=== PATIENT | female | born 1940 | race Caucasian/White ===

== ENCOUNTER 2017-07-19 14:12 | Emergency (ER) | payer MEDICARE, OTHER ==
[~2017-07-19] VITALS: Ht 160 cm; Wt 62.1 kg
[2017-07-19] MEDS ORDERED: METOPROLOL SUCC25 MG PO (14:29)
[2017-07-19] MEDS ORDERED: LEVOTHYROXINE112 MCG PO (14:29)
[2017-07-19] MEDS ORDERED: LISINOPRIL40 MG PO (14:31)
[2017-07-19] MEDS ORDERED: AMLODIPINE BESYL5 MG PO (14:31)
[2017-07-19] MEDS ORDERED: MEMANTINE HCL10 MG PO (14:31)
[2017-07-19] MEDS ORDERED: OMEGA-3 2100 S1 EACH PO (14:32)
[2017-07-19] MEDS ORDERED: COQ-10100 MG PO (14:32)
[2017-07-19] MEDS ORDERED: D3 DOTS2000 UNIT PO (14:33)
--- NOTE | 2017-07-20 12:35 | EKG ---
[facility] [address] [place], [place] [address] \T\ T wave abnormality, consider anterior ischemia Abnormal ECG No previous ECGs available Confirmed by TOLU VENTURA MD ([id number]) on 07/20/2017 12:35:43 PM Electronically Signed By: TOLU VENTURA MD 07/20/17 1235 PATIENT NAME: MIKHAIL PHAM Electrocardiogram DATE OF : 42 PHYSICIAN: TOLU VENTURA MD REPORT #: [id number] REPORT IS CONFIDENTIAL AND NOT TO BE RELEASED WITHOUT AUTHORIZATION
== END 2017-07-19 17:49 | disposition home or self-care (01) ==
LOC: ED 14:12
DX: I95.1 Orthostatic hypotension (principal); E87.6 Hypokalemia; E03.9 Hypothyroidism, unspecified; Z87.891 Personal history of nicotine dependence; Z88.0 Allergy status to penicillin; Z91.018 Allergy to other foods; Z79.899 Other long term (current) drug therapy
CPT/HCPCS: 51701; 80053; 81001; 84484; 85025; 93005; 93010; 96360; 99284; J7030

== ENCOUNTER 2022-05-05 13:40 | Inpatient (IN) | payer MEDICARE, OTHER ==
[~2022-05-05] VITALS: Ht 160 cm; Wt 66.6 kg
[~2022-05-05 13:40] MED LIST: AMLODIPINE BESYL5 MG PO; COQ-10100 MG PO; D3 DOTS50 MCG PO; LEVOTHYROXINE112 MCG PO; LISINOPRIL40 MG PO; MEMANTINE HCL10 MG PO; METOPROLOL SUCC25 MG PO; OMEGA-3 2100 S1 EACH PO
[2022-05-05] MEDS ORDERED: MIRTAZAPINE15 MG PO (16:09)
[2022-05-05] MEDS ORDERED: ELIQUIS5 MG PO (16:10)
[2022-05-05] MEDS ORDERED: DILTIAZEM 24HR240 M1 PO (16:11)
--- NOTE | 2022-05-05 19:25 | NUR ---
REPORT RECEIVED FROM ED RN. DR VENTURA TO WRITE ORDERS FOR PT ADMISSION.
--- NOTE | 2022-05-05 22:25 | NUR ---
PT FORGETS SHE HAS A MATA CATHETER AND AN IVF RUNNING. SHE NEEDS TO BE REORIENTED FREQUENTLY. PT DOES NOT USE CALL LIGHT. BED ALARM IS ON.
--- NOTE | 2022-05-06 00:52 | NUR ---
PT SET OFF THE BED ALARM GETTING UP TO GO [facility] BATHROOM. SHE WAS REORIENTED TO HER MATA CATHETER AND ITS PURPOSE. ASSISTED BACK INTO BED AND BOOSTED. BED ALARM IS DEXIGRAPH OPERATOR LIGHT IN REACH.
--- NOTE | 2022-05-06 03:42 | NUR ---
PT APPEARS TO BE ASLEEP. CALL LIGHT IN REACH. BED ALARM IS ON.
--- NOTE | 2022-05-06 07:24 | NUR ---
PT HAS SLEPT MOST OF THE SHIFT. SHE WAS CONFUSED AND SET OFF THE BED ALARM X3 TRYING TO GO TO THE BATHROOM. AFTER BEING REORIENTED EACH TIME SHE SETTLED DOWN. SHE HAS BEEN COOPERATIVE AND FRIENDLY. HAS RECEIVED LABETOLOL FOR HIGH SYSTOLIC PRESSURES.
--- NOTE | 2022-05-06 07:30 | NUR ---
SHIFT REPORT RECEIVED FROM AYO BLAKE. PT RESTING IN BED. PT PROVIDED SCHEDULED MED BY AYO BLAKE. NO OTHER NEEDS. CALL LIGHT IN REACH, RAILS UP, BED ALARM ON.
[2022-05-06] MEDS ORDERED: LISINOPRIL20 MG PO (08:05)
[2022-05-06] MEDS ORDERED: VITAMIN B-1250 MCG PO (08:46)
[2022-05-06] MEDS ORDERED: VITAMIN B-650 MG PO (08:48)
[2022-05-06] MEDS ORDERED: VITAMIN B-121000 MCG PO (08:48)
--- NOTE | 2022-05-06 09:30 | NUR ---
SCHEDULED MEDS PROVIDED. PRN PAIN MED PROVIDED FOR CHRONIC BACK PAIN. IV CDI, FLUSHED WELL. IV FLUIDS INFUSING PER ORDER. LUNGS CLEAR, BOWEL TONES ACTIVE. PT ORIENTED TO PERSON, AND TIME. PT NOT ORIENTED TO DATE OR PLACE. SPOUSE IN ROOM. NO OTHER NEEDS AT THIS TIME. BED RAILS UP, CALL LIGHT IN REACH, BED ALARM ON.
--- NOTE | 2022-05-06 09:51 | NUR ---
VERBAL ORDERS FROM DR. VENTURA TO START PT ON PHYSICAL THERAPY. ORDERS ENTERED.
--- NOTE | 2022-05-06 11:30 | NUR ---
PT RESTING IN BED, EYES CLOSED. RR EVEN, UNLABORED. FAMILY IN ROOM. RAILS UP, CALL LIGHT IN REACH, BED ALARM ON.
--- NOTE | 2022-05-06 12:17 | NUR ---
PT AND FAMILY RESTING, DID NOT DISTURB. WILL FOLLOW
--- NOTE | 2022-05-06 13:18 | NUR ---
NEW ORDERS IN PLACE. DR. VENTURA REQUESTS MATA CATHETER BE REMOVED NOW. CATHETER REMOVED PER PROTOCOL. PT TOELRATED WELL AND WAS ABLE TO REPOSITION SELF FOR PROCEEDURE. 375ML CLEAR YELLOW CURINE REMOVED FROM CATHETER. SHIRA CARE DONE. DEPENDS PLACED. PT RETURNS TO RESTING ON LEFT SIDE WITH EYES CLOSED. SCOT, PT SON AT BEDSIDE WITH PT, UPDATED ON PLAN OF CARE AND PT STATUS. SCOT VERBALIZES UNDERSTANDING AND STATES HIS QUESTIONS HAVE BEEN ANSWERED. NO ADDITIONAL NEEDS AT THIS TIME. BED RAILS UP. CALL LIGHT WITHIN REACH. BED ALARMON.
--- NOTE | 2022-05-06 14:42 | NUR ---
REPORT RECEIVED FROM PREVIOUS RN - PT RESTING IN BED. ORTHOSTATIC BP DONE AND DOCUMENTED, PT STATES FEELING WEAK AT 2MIN JUAN DANIEL. IV SITE TOLERATING INFUSION WITHOUT DIFFICULTY. PT DUE TO VOID POST MATA REMOVAL, ATTENDS IN PLACE. PT STATES SHE HAS SOME PAIN BUT DENIES COVERAGE NEEDS AT THIS TIME. RESTING IN BED WITH EYES CLOSED, AT BEDSIDE. SIDE RAILS X 4, BED ALARM ON.
--- NOTE | 2022-05-06 17:00 | NUR ---
PT SET OFF BED ALARM. ASKED PT IF NEEDED TO URINATE, PT SAID THEY DIDNT NEED TO. CALL LIGHT WITHIN REACH
--- NOTE | 2022-05-06 17:12 | NUR ---
RN ROUNDING ON PT - PT RESTING ON SIDE IN BED, DENIES FURTHER NEEDS. FRESH WATER PROVIDED. BED ALARM ON.
--- NOTE | 2022-05-06 17:45 | NUR ---
BED ALARM SOUNDING. PT TRYING TO GET UP TO USE RESTROOM. THIS RN TO ROOM. 1 PERSON ASSIST WITH FWW UP TO RESTROOM. PT VOIDS 500ML CLOUDY YELLOW URINE. PT PERFORMS SELF SHIRA CARE. DEPENDS DRY. 1 PERSON ASSIST WITH FWW UP TO CHAIR FOR DINNER. VITAL SIGNS STABLE. CALL LIGHT WITHIN REACH. PTS PRIMARY RN UPDATED.
--- NOTE | 2022-05-06 19:37 | NUR ---
REPORT RECEIVED ON PT . SITTING UP IN CHAIR. ORIENTED TO SELF ONLY TONIGHT. CALL LIGHT IN REACH. NO NEEDS.
--- NOTE | 2022-05-06 20:42 | NUR ---
PT TOOK HER PM MEDS AND IS BACK TO BED. BED ALARM IS ON . CALL LIGHT IN REACH.
--- NOTE | 2022-05-06 21:20 | NUR ---
IN TO ASSIST PT UP TO THE TOILET, SBA FWW, PT WAS GETTING OOB, BED ALARM SET OFF, VOIDED AND BACK TO BED, ALARM RESUMED
--- NOTE | 2022-05-06 23:35 | NUR ---
PT AWAKENED FOR BP MED. BP WAS 165/96 MAP 114. COREG GIVEN . PT ROLLED OVER AND WENT BACK TO SLEEP. BED ALARM IS ON. CALL LIGHT IN REACH.
--- NOTE | 2022-05-07 02:56 | NUR ---
PT HAS BEEN SLEEPING QUIETLY. BED ALARM IS ON. CALL LIGHT IS IN REACH.
--- NOTE | 2022-05-07 05:58 | NUR ---
PT CONTINUES TO BE CONFUSED AND REQUIRES FREQUENT REORIENTATION. HER GAIT IS UNSTEADY, AHE REQUIRES A FWW AND SBA. PT'S HANDS SHAKE . SHE HAS A POOR APPETITE, EATS BETTER WITH AN ASSIST. SBP IS IMPROVED WITH COREG.
--- NOTE | 2022-05-07 07:00 | EKG ---
[facility] [address] [place] [address] Signed Atrial fibrillation Low voltage QRS Nonspecific ST and T wave abnormality Abnormal ECG When compared with ECG of 19-JUL-2017 14:43, Atrial fibrillation has replaced Sinus rhythm Vent. rate has increased BY [address] no longer elevated in Inferior leads Nonspecific T wave abnormality now evident in Inferior leads Confirmed by AYO ASTORGA MD ([id number]) on 05/07/2022 7:00:42 AM Electronically Signed By: AYO ASTORGA MD 05/07/22 0700 PATIENT NAME: MIKHAIL PHAM Electrocardiogram DATE OF : 42 PHYSICIAN: AYO ASTORGA MD REPORT #: [id number] REPORT IS CONFIDENTIAL AND NOT TO BE RELEASED WITHOUT AUTHORIZATION
--- NOTE | 2022-05-07 07:24 | NUR ---
THIS RN RECEIVED SHIFT REPORT FROM LOU ROLLINS. PATIENT RESTING QUIETLY ON HER RIGHT SIDE, EYES CLOSED, RESPIRATIONS ARE REGULAR AND EVEN, CALL LIGHT IN REACH AND BED ALARM IS ON. PATIENT HAS NO NURSE CARE NEEDS A THIS TIME.
--- NOTE | 2022-05-07 08:01 | NUR ---
PATIENT UP IN CHAIR FOR MEAL. THE CHAIR ALARM IS ON AND THE PATIENT HAS WASHED THEIR FACE. WENT TO THE RESTROOM AND WILL BRUSH TEETH AFTER BREAKFAST. CALL LIGHT WITHIN REACH.
--- NOTE | 2022-05-07 08:50 | NUR ---
THIS RN IN TO GIVE AM MEDS. PATIENT'S AT BEDSIDE HELPING PATIENT WITH BREAKFAST. AM ASSESSMENT COMPLETE. PATIENT ABLE TO TAKE 1 PILL AT A TIME WITH THIS RN PLAING EACH IN HER MOUTH SHE IS UNABLE TO GET THE PILL OUT OF THE CUP ON HER OWN. IV INFUSING AND SITE WNL. FRESH ICE WATER GIVEN TO PATIENT AND TO . PATIENT REMAINS UP IN THE BEDSIDE ARMCHAIR WITH CHAIR ALARM. CALL LIGHT IN REACH. PATIENT HAS NO OTHER CARE NEEDS AT THIS TIME.
--- NOTE | 2022-05-07 10:05 | NUR ---
PT IN WORKING WITH PATIENT AND COMING IN TO SEE PATIENT WELL. THIS RN APPLIED LIDOCAINE TO THE PATIENT'S LOWER BACK WHERE SHINGLES ARE PRESENT. LEAVING PATIENT IN HANDS OF PT AT THIS TIME. REMAINS ON THE SOFA.
--- NOTE | 2022-05-07 12:15 | NUR ---
HELPED PATIENT USE THE RESTROOM AND GET UP INTO CHAIR FOR MEAL. FAMILY MEMEBER IN ROOM CALL LIGHT IN REACH.
--- NOTE | 2022-05-07 12:17 | NUR ---
PATIENT'S SON IS IN THE ROOM ASSISTING PATIENT WITH EATING HER LUNCH. PATIENT IS UP IN THE BEDSIDE ARMCHAIR. PATIENT HAS C/O PAIN ON HER BACK DUE TO SHINGLES. THIS RN APPLIED SOME MORE LIDOCAINE CREAM TO THE AREA. PATIENT SAID THE PREVIOUS APPLICATION HELPED A LOT. CALL LIGHT IN REACH AND PATIENT AND SON DENY ANY OTHER CARE NEEDS AT THIS TIME.
--- NOTE | 2022-05-07 12:34 | NUR ---
THIS RN 1P STANDBY ASSIST WITH FWW PATIENT BACK TO BED AT HER REQUEST. PATIENT ONLY ATE ABOUT 25% OF LUNCH AND SAYS SHE IS JUST NOT HUNGRY. PATIENT'S SON REMAINS AT BEDSIDE. CALL LIGHT IN REACH. PATIENT HAS NO OTHER CARE NEEDS AT THIS TIME.
--- NOTE | 2022-05-07 13:26 | NUR ---
PT LTYING IN BED, NO COMPLAINTS OF PAIN. VITALS COMPLETED WELL I'S/O'S. FAMILY MEMBER VISITING, CALL LIGHT WITHIN REACH.
--- NOTE | 2022-05-07 14:15 | NUR ---
THIS RN IN TO SEE PATIENT. PATIENT RESTING QUIETLY IN BED AND DENIES ANY PAIN OR NAUSEA. PATIENT'S SON ON THE COUCH READING. PATIENT AND SON BOTH GIVEN FRESH ICE WATER. AFTERNOON ASSESSMENT COMPLETE. CALL LIGHT IN REACH. PATIENT HAS NO FURTHER NURSE CARE NEEDS AT THIS TIME.
--- NOTE | 2022-05-07 17:45 | NUR ---
PAITENT RESTING IN CHAIR COMFORTABLY, FAMILY VISITING. VITALS AND I'S/O'S COMPLETED. NO OTHER NEEDS AT THIS TIME. CALL LIGHT WITHIN REACH.
--- NOTE | 2022-05-07 17:47 | NUR ---
PATIENT RESTING QUIETLY SITTING IN THE BEDSIDE ARMCHAIR, EYES CLOSED, RESPIRATIONS ARE REGULAR AND EVEN, CHAIR ALARM IS ON, AND CALL LIGHT IS IN REACH. PATIENT HAS NO CARE NEEDS FROM THIS RN AT THIS TIME.
--- NOTE | 2022-05-07 17:55 | NUR ---
PATIENT'S SITTING WITH PATIENT IN THE ROOM AT THIS TIME AND THE CHAIR ALARM IS OFF. PATIENT'S SAYS HE WILL NOT LET HER GET UP AND WILL LET US KNOW THE CHAIR ALARM NEEDS TO BE TURNED BACK ON IF HE NEEDS TO STEP OUT FOR ANY REASON. CALL LIGHT IN REACH.
--- NOTE | 2022-05-07 18:05 | NUR ---
PT CALL LIGHT ON. PT REPORTS "MY TAIL BONE HURTS." THIS RN TO ROOM. PT UP TO RESTROOM WITH STAND BY ASSIST AND FWW. PT VOIDS, UNMEASURED PT TOOK HAT OUT OF TOILET. DEPENDS DRY. PT PERFORMS SELF SHIRA CARE. STAND BY ASSIST BACK TO CHAIR. PT DECLINES GETTING BACK TO BED. AND BEDSIDE. CALL LIGHT WITHIN REACH. CHAIR ALARM ON. PTS PRIMARY RN UPDATED.
--- NOTE | 2022-05-07 19:16 | NUR ---
THIS RN HAS GIVEN SHIFT REPORT TO LOU REILLY. PATIENT RESTING IN THE BEDSIDE ARMCHAIR WITH CHAIR ALARM ON. PATIENT DENIES ANY CARE NEEDS AT THIS TIME. CALL LIGHT IS IN REACH.
--- NOTE | 2022-05-07 19:41 | NUR ---
report recieved, pt is in room sitting in recliner in NAD. call light and BST within reach. chair alarm in place. pt states on needs at this time
--- NOTE | 2022-05-08 01:56 | NUR ---
PT ASSISTED TO THE BR AT 0015, CGA, SHE VOIDED THEN BACK TO BED, SHE IS NOW RESTING WITH EYES CLOSED. NAD
--- NOTE | 2022-05-08 04:33 | NUR ---
PT RESTING IN BED WITH EYES CLOSED, BED ALARM ON PT IS IMPULSIVE AND REQUIRES CGA TO BATHROOM, ALARM HAS BEEN ACTIVATED 3X TONIGHT. SHE IS PLESANTLY CONFUSED TO TIME PLACE SITUATION.
--- NOTE | 2022-05-08 04:58 | NUR ---
PT IS PLESANTLY CONFUSED TO TIME SITUATION PALCE. BED ALARM PLACED FOR SAFTY DUE TO IMPULSIVNESS. SHE AMBULATED WITH CGA W/O WALKER TO BATHROOM. PT HAS BEEN CONTINENT THROUGH THE NIGHT. IV PATENT WITH FLUIDS INFUSING. ENCOURAGED ORAL FLUIDS WITH EACH INTERACTION. URINE IS DILUTE AND CLEAR.
--- NOTE | 2022-05-08 07:29 | NUR ---
THIS RN RECEIVED SHIFT REPORT FROM LOU REILLY. PATIENT TRYING TO GET UP OUT OF BED. PATIENT SAYS SHE HEARS HER SON CALLING FOR HER, BUT PATIENT HAS NO VISTORS AT THIS TIME. TRIED TO REORIENT THE PATIENT TO WHERE SHE IS. SHE SAYS SHE UNDERSTANDS SHE IS IN THE HOSPITAL, BUT KEEPS HEARING HER SON CALL OUT FOR HER. AELYDA PATE IN ROOM NOW TO DO VS. BED ALARM IS ON AND CALL LIGHT IS IN REACH.
--- NOTE | 2022-05-08 07:45 | NUR ---
PATIENT UP IN CHAIR, USED RESTROOM, AND DID ALL AM CARE. DID HAVE CONFUSION AND NEEDED QUEING FOR CARES IN THE AM. NURSE NOTIFIED. CALL LIGHT WITHIN REACH.
--- NOTE | 2022-05-08 07:58 | NUR ---
RACHAEL HAS BEEN SET UP FOR BREAKFAST IN THE BEDSIDE ARMCHAIR. CHAIR ALARM IS ON. AM MEDS GIVEN. PATIENT CONTINUES TO HEAR VOICES CALLING HER IN HER ROOM, NO TV OR RADIO ON, AND NO VISITORS ARE PRESENT. PATIENT DENIES PAIN AND NAUSEA. CALL LIGHT IN REACH. PATIENT HAS NO CURRENT CARE NEEDS AT THIS TIME.
[2022-05-08] MEDS ORDERED: ELIQUIS2.5 MG PO (09:05)
[2022-05-08] MEDS ORDERED: GABAPENTIN100 MG PO (09:05)
[2022-05-08] MEDS ORDERED: CARVEDILOL6.25 MG PO (09:05)
[2022-05-08] MEDS ORDERED: MEMANTINE HCL5 MG PO (09:06)
[2022-05-08] MEDS ORDERED: LIDOCAINE15 GM TOP (09:21)
--- NOTE | 2022-05-08 10:40 | NUR ---
PATIENT DC'D HOME WITH AND SON. TAKEN TO THE FRONT PARKING LOT VIA W/C BY MED/SURG STAFF MEMBER. IV WAS DC'D INTACT. F/U AND DC INSTRUCTIONS GIVEN IN WRITTEN FORM AND DISCUSSED WITH FAMILY VERBALLY, AND PATIENT AND FAMILY VERBALIZED UNDERSTANDING TO ALL INSTRUCTION. ALL BELONGINGS SENT HOME WITH PATIENT.
== END 2022-05-08 10:40 | disposition home or self-care (01) | DRG 683 ==
LOC: ED 13:40 → MS 19:00
PROVIDERS: ADMIT Internal Medicine; ATTEND Internal Medicine
DX: N17.9 Acute kidney failure, unspecified (principal); B02.29 Other postherpetic nervous system involvement; I48.20 Chronic atrial fibrillation, unspecified; Z66 Do not resuscitate; Z20.822 Contact with and (suspected) exposure to COVID-19; E86.0 Dehydration; I10 Essential (primary) hypertension; E03.9 Hypothyroidism, unspecified; G30.9 Alzheimer's disease, unspecified; F02.80 Dementia in other diseases classified elsewhere, unspecified severity, without behavioral disturbance, psychotic disturbance, mood disturbance, and anxiety; Z87.891 Personal history of nicotine dependence; Z88.0 Allergy status to penicillin; Z91.018 Allergy to other foods; Z79.01 Long term (current) use of anticoagulants; Z79.899 Other long term (current) drug therapy
CPT/HCPCS: 36415; 51702; 70450; 71045; 80048; 80053; 81001; 82570; 84132; 84300; 84484; 84550; 85025; 87502; 93005; 93010; 97110; 97116; 97162; 99285-25; A9270; C9803; J7030; U0003

== ENCOUNTER 2022-08-03 19:42 | Emergency (ER) | payer MEDICARE, OTHER ==
[~2022-08-03] VITALS: Ht 160 cm; Wt 61.7 kg
[~2022-08-03 19:42] MED LIST changes: +CARVEDILOL6.25 MG PO; +DILT-XR180 MG PO; +DILTIAZEM 24HR180 M1 PO; +DILTIAZEM 24HR240 M1; +DILTIAZEM 24HR240 M1 PO; +ELIQUIS2.5 MG PO; +ELIQUIS5 MG PO; +GABAPENTIN100 MG PO; +LIDOCAINE15 GM TOP; +LISINOPRIL20 MG PO; +MEMANTINE HCL5 MG PO; +MIRTAZAPINE15 MG PO; +VITAMIN B-121000 MCG PO; +VITAMIN B-1250 MCG PO; +VITAMIN B-650 MG PO
== END 2022-08-03 20:55 | disposition home or self-care (01) ==
LOC: ED 19:42
DX: R04.0 Epistaxis (principal); Z87.891 Personal history of nicotine dependence; Z88.0 Allergy status to penicillin; Z91.018 Allergy to other foods; Z79.899 Other long term (current) drug therapy

== ENCOUNTER 2022-08-04 00:43 | Emergency (ER) | payer MEDICARE, OTHER ==
[~2022-08-04] VITALS: Ht 160 cm; Wt 61.7 kg
== END 2022-08-04 02:00 | disposition home or self-care (01) ==
LOC: ED 00:43
DX: R04.0 Epistaxis (principal); E03.9 Hypothyroidism, unspecified; I48.91 Unspecified atrial fibrillation; Z87.891 Personal history of nicotine dependence; Z88.0 Allergy status to penicillin; Z91.018 Allergy to other foods; Z79.899 Other long term (current) drug therapy
CPT/HCPCS: 30901; 99283-25

== ENCOUNTER 2023-04-28 14:25 | Inpatient (IN) | payer MEDICARE, OTHER ==
[~2023-04-28] VITALS: Ht 160 cm; Wt 68.8 kg
--- OUTSIDE RECORDS SUMMARY | ~2023-04-28 | XMS | Continuity of Care Document ---
Demographics + + + | Address | [address] | | | [place] [address] | + + + | Preferred Language | Unknown | + + + | Marital Status | | + + + | Uatsdin Affiliation | Unknown | + + + | Race | White | + + + | Ethnic Group | Not or | + + + Author + + + | Author | [address] | + + + | Organization | [address] | + + + | Address | [address] | | | [place] [address] | + + + | Phone | | + + + Care Team Providers + + + + | Care Toll Repairer Central Office Name | Role | Phone | + + + + Unavailable | Unavailable | + + + + Unavailable | Unavailable | + + + + Unavailable | Unavailable | + + + + Allergies and Intolerances + + + + + + | date | description | facility | reaction | severity | + + + + + + | (no date) | Anaphylaxis | [facility] | (no reaction) | (no severity) | | [facility] | | | + + + + + + | (no date) | Penicillin | [facility] | (no reaction) | (no severity) | [facility] | | | + + + + + + | (no date) | Penicillin | [facility] | (no reaction) | (no severity) | | [facility] | | | + + + + + + | (no date) | Penicillins | [facility] | (no reaction) | (no severity) | | [facility] | | | + + + + + + | (no date) | Penicillin | [facility] | (no reaction) | (no severity) | | [facility] | | | + + + + + + Encounters No information. Functional Status No information. Immunizations + + + + | date | description | facility | + + + + | 2022-05-08 00:00 | No vaccine administered | [facility] | + + + + | 2022-05-17 00:00 | No vaccine administered | [facility] | + + + + | 2022-06-08 00:00 | No vaccine administered | [facility] | + + + + | 2022-08-03 00:00 | No vaccine administered | [facility] | + + + + | 2022-08-04 00:00 | No vaccine administered | [facility] | + + + + Medications + + + + | date | description | facility | + + + + | 2022-05-08 00:00 | APIXABAN | [facility] | + + + + | 2022-05-08 00:00 | APIXABAN | [facility] | + + + + | 2022-05-08 00:00 | apixaban 2.5 MG Oral | [facility] | | | Tablet [Eliquis] | | + + + + | 2022-05-09 00:00 | APIXABAN | [facility] | + + + + | 2022-05-19 00:00 | APIXABAN | [facility] | + + + + | 2022-06-09 00:00 | APIXABAN | [facility] | + + + + | 2022-08-03 00:00 | APIXABAN | [facility] | + + + + | 2022-08-04 00:00 | APIXABAN | [facility] | + + + + | 2022-05-08 00:00 | apixaban 5 MG Oral Tablet | [facility] | | | [Eliquis] | | + + + + | 2022-05-17 00:00 | apixaban 5 MG Oral Tablet | [facility] | | | [Eliquis] | | + + + + | 2022-06-08 00:00 | apixaban 5 MG Oral Tablet | [facility] | | | [Eliquis] | | + + + + | 2022-08-03 00:00 | apixaban 5 MG Oral Tablet | [facility] | | | [Eliquis] | | + + + + | 2022-08-04 00:00 | apixaban 5 MG Oral Tablet | [facility] | | | [Eliquis] | | + + + + | 2022-05-08 00:00 | LIDOCAINE | [facility] | + + + + | 2022-05-08 00:00 | LIDOCAINE | [facility] | + + + + | 2022-05-08 00:00 | Lidocaine 50 MG/ML Rectal | [facility] | | | Cream | | + + + + | 2022-05-08 00:00 | CARVEDILOL | [facility] | + + + + | 2022-05-08 00:00 | carvedilol 6.25 MG Oral | [facility] | | | Tablet | | + + + + | 2022-05-09 00:00 | UBIDECARENONE | [facility] | + + + + | 2022-05-19 00:00 | UBIDECARENONE | [facility] | + + + + | 2022-06-09 00:00 | UBIDECARENONE | [facility] | + + + + | 2022-08-03 00:00 | UBIDECARENONE | [facility] | + + + + | 2022-08-04 00:00 | UBIDECARENONE | [facility] | + + + + | 2022-05-08 00:00 | ubidecarenone 100 MG Oral | [facility] | | | Capsule | | + + + + | 2022-05-17 00:00 | ubidecarenone 100 MG Oral | [facility] | | | Capsule | | + + + + | 2022-06-08 00:00 | ubidecarenone 100 MG Oral | [facility] | | | Capsule | | + + + + | 2022-08-03 00:00 | ubidecarenone 100 MG Oral | [facility] | | | Capsule | | + + + + | 2022-08-04 00:00 | ubidecarenone 100 MG Oral | [facility] | | | Capsule | | + + + + | 2022-05-09 00:00 | CYANOCOBALAMIN (VITAMIN | [facility] | | | B-12) | | + + + + | 2022-05-19 00:00 | CYANOCOBALAMIN (VITAMIN | [facility] | | | B-12) | | + + + + | 2022-06-09 00:00 | CYANOCOBALAMIN (VITAMIN | [facility] | | | B-12) | | + + + + | 2022-08-03 00:00 | CYANOCOBALAMIN (VITAMIN | [facility] | | | B-12) | | + + + + | 2022-08-04 00:00 | CYANOCOBALAMIN (VITAMIN | [facility] | | | B-12) | | + + + + | 2022-05-08 00:00 | vitamin B12 1 MG Oral | [facility] | | | Tablet | | + + + + | 2022-05-17 00:00 | vitamin B12 1 MG Oral | [facility] | | | Tablet | | + + + + | 2022-06-08 00:00 | vitamin B12 1 MG Oral | [facility] | | | Tablet | | + + + + | 2022-08-03 00:00 | vitamin B12 1 MG Oral | [facility] | | | Tablet | | + + + + | 2022-08-04 00:00 | vitamin B12 1 MG Oral | [facility] | | | Tablet | | + + + + | 2022-05-08 00:00 | GABAPENTIN | [facility] | + + + + | 2022-05-08 00:00 | gabapentin 100 MG Oral | [facility] | | | Capsule | | + + + + | 2022-05-09 00:00 | MIRTAZAPINE | [facility] | + + + + | 2022-05-19 00:00 | MIRTAZAPINE | [facility] | + + + + | 2022-06-09 00:00 | MIRTAZAPINE | [facility] | + + + + | 2022-08-03 00:00 | MIRTAZAPINE | [facility] | + + + + | 2022-08-04 00:00 | MIRTAZAPINE | [facility] | + + + + | 2022-05-08 00:00 | mirtazapine 15 MG Oral | [facility] | | | Tablet | | + + + + | 2022-05-17 00:00 | mirtazapine 15 MG Oral | [facility] | | | Tablet | | + + + + | 2022-06-08 00:00 | mirtazapine 15 MG Oral | [facility] | | | Tablet | | + + + + | 2022-08-03 00:00 | mirtazapine 15 MG Oral | [facility] | | | Tablet | | + + + + | 2022-08-04 00:00 | mirtazapine 15 MG Oral | [facility] | | | Tablet | | + + + + | 2022-05-09 00:00 | LISINOPRIL | [facility] | + + + + | 2022-05-19 00:00 | LISINOPRIL | [facility] | + + + + | 2022-06-09 00:00 | LISINOPRIL | [facility] | + + + + | 2022-08-03 00:00 | LISINOPRIL | [facility] | + + + + | 2022-08-04 00:00 | LISINOPRIL | [facility] | + + + + | 2022-05-08 00:00 | lisinopril 20 MG Oral | [facility] | | | Tablet | | + + + + | 2022-05-17 00:00 | lisinopril 20 MG Oral | [facility] | | | Tablet | | + + + + | 2022-06-08 00:00 | lisinopril 20 MG Oral | [facility] | | | Tablet | | + + + + | 2022-08-03 00:00 | lisinopril 20 MG Oral | [facility] | | | Tablet | | + + + + | 2022-08-04 00:00 | lisinopril 20 MG Oral | [facility] | | | Tablet | | + + + + | 2022-05-09 00:00 | PYRIDOXINE HCL | [facility] | + + + + | 2022-05-19 00:00 | PYRIDOXINE HCL | [facility] | + + + + | 2022-06-09 00:00 | PYRIDOXINE HCL | [facility] | + + + + | 2022-08-03 00:00 | PYRIDOXINE HCL | [facility] | + + + + | 2022-08-04 00:00 | PYRIDOXINE HCL | [facility] | + + + + | 2022-05-08 00:00 | vitamin B6 50 MG Oral | [facility] | | | Tablet | | + + + + | 2022-05-17 00:00 | vitamin B6 50 MG Oral | [facility] | | | Tablet | | + + + + | 2022-06-08 00:00 | vitamin B6 50 MG Oral | [facility] | | | Tablet | | + + + + | 2022-08-03 00:00 | vitamin B6 50 MG Oral | [facility] | | | Tablet | | + + + + | 2022-08-04 00:00 | vitamin B6 50 MG Oral | [facility] | | | Tablet | | + + + + | 2022-05-09 00:00 | Cholecalciferol (Vitamin | [facility] | | | D3) | | + + + + | 2022-05-19 00:00 | Cholecalciferol (Vitamin | [facility] | | | D3) | | + + + + | 2022-06-09 00:00 | Cholecalciferol (Vitamin | [facility] | | | D3) | | + + + + | 2022-08-03 00:00 | Cholecalciferol (Vitamin | [facility] | | | D3) | | + + + + | 2022-08-04 00:00 | Cholecalciferol (Vitamin | [facility] | | | D3) | | + + + + | 2022-05-08 00:00 | cholecalciferol 0.05 MG | [facility] | | | Oral Tablet | | + + + + | 2022-05-17 00:00 | cholecalciferol 0.05 MG | [facility] | | | Oral Tablet | | + + + + | 2022-06-08 00:00 | cholecalciferol 0.05 MG | [facility] | | | Oral Tablet | | + + + + | 2022-08-03 00:00 | cholecalciferol 0.05 MG | [facility] | | | Oral Tablet | | + + + + | 2022-08-04 00:00 | cholecalciferol 0.05 MG | [facility] | | | Oral Tablet | | + + + + | 2022-05-08 00:00 | 24 HR diltiazem | [facility] | | | hydrochloride 240 MG | | | | Extended Release Oral C | | + + + + | 2022-05-17 00:00 | 24 HR diltiazem | [facility] | | | hydrochloride 240 MG | | | | Extended Release Oral C | | + + + + | 2022-05-09 00:00 | DILTIAZEM HCL | [facility] | + + + + | 2022-05-19 00:00 | DILTIAZEM HCL | [facility] | + + + + | 2022-05-17 00:00 | 24 HR diltiazem | [facility] | | | hydrochloride 180 MG | | | | Extended Release Oral C | | + + + + | 2022-06-08 00:00 | 24 HR diltiazem | [facility] | | | hydrochloride 180 MG | | | | Extended Release Oral C | | + + + + | 2022-08-03 00:00 | 24 HR diltiazem | [facility] | | | hydrochloride 180 MG | | | | Extended Release Oral C | | + + + + | 2022-08-04 00:00 | 24 HR diltiazem | [facility] | | | hydrochloride 180 MG | | | | Extended Release Oral C | | + + + + | 2022-05-17 00:00 | DILTIAZEM HCL | [facility] | + + + + | 2022-06-09 00:00 | DILTIAZEM HCL | [facility] | + + + + | 2022-08-03 00:00 | DILTIAZEM HCL | [facility] | + + + + | 2022-08-04 00:00 | DILTIAZEM HCL | [facility] | + + + + | 2022-05-17 00:00 | 24 HR diltiazem | [facility] | | | hydrochloride 180 MG | | | | Extended Release Oral C | | + + + + | 2022-05-17 00:00 | DILTIAZEM HCL | [facility] | + + + + | 2022-05-09 00:00 | LEVOTHYROXINE SODIUM | [facility] | + + + + | 2022-05-19 00:00 | LEVOTHYROXINE SODIUM | [facility] | + + + + | 2022-06-09 00:00 | LEVOTHYROXINE SODIUM | [facility] | + + + + | 2022-08-03 00:00 | LEVOTHYROXINE SODIUM | [facility] | + + + + | 2022-08-04 00:00 | LEVOTHYROXINE SODIUM | [facility] | + + + + | 2022-05-08 00:00 | levothyroxine sodium 0.112 | [facility] | | | MG Oral Tablet | | + + + + | 2022-05-17 00:00 | levothyroxine sodium 0.112 | [facility] | | | MG Oral Tablet | | + + + + | 2022-06-08 00:00 | levothyroxine sodium 0.112 | [facility] | | | MG Oral Tablet | | + + + + | 2022-08-03 00:00 | levothyroxine sodium 0.112 | [facility] | | | MG Oral Tablet | | + + + + | 2022-08-04 00:00 | levothyroxine sodium 0.112 | [facility] | | | MG Oral Tablet | | + + + + | 2022-05-09 00:00 | MEMANTINE HCL | [facility] | + + + + | 2022-05-19 00:00 | MEMANTINE HCL | [facility] | + + + + | 2022-06-09 00:00 | MEMANTINE HCL | [facility] | + + + + | 2022-08-03 00:00 | MEMANTINE HCL | [facility] | + + + + | 2022-08-04 00:00 | MEMANTINE HCL | [facility] | + + + + | 2022-05-08 00:00 | memantine hydrochloride 10 | [facility] | | | MG Oral Tablet | | + + + + | 2022-05-17 00:00 | memantine hydrochloride 10 | [facility] | | | MG Oral Tablet | | + + + + | 2022-06-08 00:00 | memantine hydrochloride 10 | [facility] | | | MG Oral Tablet | | + + + + | 2022-08-03 00:00 | memantine hydrochloride 10 | [facility] | | | MG Oral Tablet | | + + + + | 2022-08-04 00:00 | memantine hydrochloride 10 | [facility] | | | MG Oral Tablet | | + + + + | 2022-05-08 00:00 | MEMANTINE HCL | [facility] | + + + + | 2022-05-08 00:00 | MEMANTINE HCL | [facility] | + + + + | 2022-05-08 00:00 | memantine hydrochloride 5 | [facility] | | | MG Oral Tablet | | + + + + Problems + + + + | date | description | facility | + + + + | 2017-07-19 00:00 | Hypokalemia | [facility] | + + + + | 2017-07-19 00:00 | Hypokalemia | [facility] | + + + + | 2017-07-19 00:00 | Chronic orthostatic | [facility] | | | hypotension | | + + + + | 2017-07-19 00:00 | Chronic orthostatic | [facility] | | | hypotension | | + + + + | 2017-07-19 00:00 | Hypotension | [facility] | + + + + | 2017-07-19 00:00 | Hypotension | [facility] | + + + + | 2017-07-19 00:00 | Syncope | [facility] | + + + + | 2017-07-19 00:00 | Syncope | [facility] | + + + + | 2022-05-05 00:00 | RYAN (acute kidney injury) | [facility] | + + + + | 2022-05-05 00:00 | Shingles | [facility] | + + + + | 2022-05-05 00:00 | Herpes zoster | [facility] | + + + + | 2022-05-05 00:00 | Herpes zoster | [facility] | + + + + | 2022-05-05 00:00 | Acute kidney injury | [facility] | + + + + | 2022-05-05 00:00 | Acute kidney injury | [facility] | + + + + | 2022-05-17 00:00 | Bradycardia, drug induced | [facility] | + + + + | 2022-05-17 00:00 | Near syncope | [facility] | + + + + | 2022-05-17 00:00 | Drug-induced bradycardia | [facility] | + + + + | 2022-05-17 00:00 | Drug-induced bradycardia | [facility] | + + + + | 2022-05-17 00:00 | Pre-syncope | [facility] | + + + + | 2022-05-17 00:00 | Pre-syncope | [facility] | + + + + | 2022-06-07 00:00 | Anemia | [facility] | + + + + | 2022-06-07 00:00 | Anemia | [facility] | + + + + | 2022-06-07 00:00 | Alzheimer's dementia | [facility] | + + + + | 2022-06-07 00:00 | Alzheimer's dementia | [facility] | + + + + | 2022-06-07 00:00 | Atrial fibrillation | [facility] | + + + + | 2022-06-07 00:00 | Atrial fibrillation | [facility] | + + + + | 2022-08-03 00:00 | Epistaxis | [facility] | + + + + Procedures + + + + | date | description | facility | + + + + | 2022-05-05 00:00 | DRAINAGE OF BLADDER WITH | [facility] | | | DRAINAGE DEVICE, VIA | | | | OPENING | | + + + + | 2022-05-05 00:00 | DRAINAGE OF BLADDER WITH | [facility] | | | DRAINAGE DEVICE, VIA | | | | OPENING | | + + + + | 2022-06-08 00:00 | Esophagogastroduodenoscopy | [facility] | | | (EGD) with closed biopsy | | + + + + | 2022-06-08 00:00 | Esophagogastroduodenoscopy | [facility] | | | (EGD) with closed biopsy | | + + + + | 2022-06-08 00:00 | Esophagogastroduodenoscopy | [facility] | | | (EGD) with closed biopsy | | + + + + Results/Labs +--------+--------+ +---------+--------+---------+ | test | date | facility | value | unit | notes | +--------+--------+ +---------+--------+---------+ + + | Result panel 1 | + + + + + +-------+ + + | Whole blood | 2022-05-05 | [facility] | 107 | (missing) | (missing) | | glucose | 13:37 | [place] | | | | | measurement | | Hospital | | | | | using | | | | | | | handheld | | | | | | | analyzer | | | | | | | (mass/volume | | | | | | | ) | | | | | | + + + +-------+ + + + + | Result panel 2 | + + + + + +-------+ + + | | 2022-05-05 | [facility] | 107 | (missing) | (missing) | | (unavailable | 13:37 | [facility] | | | | + + + +-------+ + + + + | Result panel 3 | + + + + + +-------+ + + | Whole blood | 2022-05-05 | [facility] | 107 | (missing) | (missing) | | glucose | 13:37 | [facility] | | | | | measurement | | Hospital | | | | | using | | | | | | | handheld | | | | | | | analyzer | | | | | | | (mass/volume | | | | | | | ) | | | | | | + + + +-------+ + + + + | Result panel 4 | + + + + + +-------+ + + | | 2022-05-05 | [facility] | 107 | (missing) | (missing) | | (unavailable | 13:37 | [facility] | | | | + + + +-------+ + + + + | Result panel 5 | + + + + + +-------+ + + | | 2022-05-05 | [facility] | 107 | (missing) | (missing) | | (unavailable | 13:37 | [facility] | | | | + + + +-------+ + + + + | Result panel 6 | + + + + + +-------+ + + | | 2022-05-05 | [facility] | 0.7 | (missing) | (missing) | | (unavailable | 14:26 | [facility] | | | | + + + +-------+ + + + + | Result panel 7 | + + + + + +------+ + + | | 2022-05-05 | [facility] | 54 | (missing) | (missing) | | (unavailable | 14:26 | [facility] | | | | + + + +------+ + + + + | Result panel 8 | + + + + + +------+ + + | | 2022-05-05 | [facility] | 42 | (missing) | (missing) | | (unavailable | 14:26 | [facility] | | | | + + + +------+ + + + + | Result panel 9 | + + + + + +------+ + + | | 2022-05-05 | [facility] | 68 | (missing) | (missing) | | (unavailable | 14:26 | [facility] | | | | + + + +------+ + + + + | Result panel 10 | + + + + + +-------+ + + | Blood | 2022-05-05 | [facility] | 8.2 | (missing) | (missing) | | leukocytes | 14:26 | [facility] | | | | automated | | Hospital | | | | | count | | | | | | | (number/volu | | | | | | | me) | | | | | | + + + +-------+ + + + + | Result panel 11 | + + + + + +--------+ + + | Blood | 2022-05-05 | [facility] | 4.27 | (missing) | (missing) | | erythrocytes | 14:26 | [facility] | | | | automated | | Hospital | | | | | count | | | | | | | (number/volu | | | | | | | me) | | | | | | + + + +--------+ + + + + | Result panel 12 | + + + + + +--------+ + + | Blood | 2022-05-05 | [facility] | 14.9 | (missing) | (missing) | | hemoglobin | 14:26 | [facility] | | | | measurement | | Hospital | | | | | (mass/volume | | | | | | | ) | | | | | | + + + +--------+ + + + + | Result panel 13 | + + + + + +--------+ + + | Automated | 2022-05-05 | [facility] | 43.4 | (missing) | (missing) | | blood | 14:26 | [facility] | | | | hematocrit | | Hospital | | | | + + + +--------+ + + + + | Result panel 14 | + + + + + +---------+ + + | Automated | 2022-05-05 | [facility] | 101.7 | (missing) | (missing) | | erythrocyte | 14:26 | [facility] | | | | | mean | | Hospital | | | | | corpuscular | | | | | | | volume | | | | | | + + + +---------+ + + + + | Result panel 15 | + + + + + +--------+ + + | Automated | 2022-05-05 | [facility] | 34.8 | (missing) | (missing) | | erythrocyte | 14:26 | [facility] | | | | | mean | | Hospital | | | | | corpuscular | | | | | | | hemoglobin | | | | | | | (mass per | | | | | | | erythrocyte) | | | | | | | | | | | | | + + + +--------+ + + + + | Result panel 16 | + + + + + +--------+ + + | Automated | 2022-05-05 | [facility] | 34.3 | (missing) | (missing) | | erythrocyte | 14:26 | [facility] | | | | | mean | | Hospital | | | | | corpuscular | | | | | | | hemoglobin | | | | | | | concentratio | | | | | | | n | | | | | | | measurement | | | | | | | (mass/volume | | | | | | | ) | | | | | | + + + +--------+ + + + + | Result panel 17 | + + + + + +--------+ + + | Automated | 2022-05-05 | [facility] | 13.8 | (missing) | (missing) | | erythrocyte | 14:26 | [facility] | | | | | distribution | | Hospital | | | | | width | | | | | | + + + +--------+ + + + + | Result panel 18 | + + + + + +-------+ + + | Automated | 2022-05-05 | [facility] | 345 | (missing) | (missing) | | blood | 14:26 | [facility] | | | | platelet | | Hospital | | | | | count | | | | | | | (count/volum | | | | | | | e) | | | | | | + + + +-------+ + + + + | Result panel 19 | + + + + + +--------+ + + | Automated | 2022-05-05 | [facility] | 69.1 | (missing) | (missing) | | blood | 14:26 | [facility] | | | | | neutrophil | | Hospital | | | | | count as | | | | | | | percentage | | | | | | | of total | | | | | | | leukocytes | | | | | | + + + +--------+ + + + + | Result panel 20 | + + + + + +--------+ + + | Automated | 2022-05-05 | [facility] | 21.3 | (missing) | (missing) | | blood | 14:26 | [facility] | | | | | lymphocyte | | Hospital | | | | | count as | | | | | | | percentage | | | | | | | ot total | | | | | | | leukocytes | | | | | | + + + +--------+ + + + + | Result panel 21 | + + + + + +-------+ + + | Automated | 2022-05-05 | [facility] | 7.5 | (missing) | (missing) | | blood | 14:26 | [facility] | | | | | monocyte | | Hospital | | | | | count as | | | | | | | percentage | | | | | | | of total | | | | | | | leukocytes | | | | | | + + + +-------+ + + + + | Result panel 22 | + + + + + +-------+ + + | Automated | 2022-05-05 | [facility] | 1.3 | (missing) | (missing) | | blood | 14:26 | [facility] | | | | | eosinophil | | Hospital | | | | | count as | | | | | | | percentage | | | | | | | of total | | | | | | | leukocytes | | | | | | + + + +-------+ + + + + | Result panel 23 | + + + + + +-------+ + + | Automated | 2022-05-05 | [facility] | 0.8 | (missing) | (missing) | | blood | 14:26 | [facility] | | | | | basophil | | Hospital | | | | | count as | | | | | | | percentage | | | | | | | of total | | | | | | | leukocytes | | | | | | + + + +-------+ + + + + | Result panel 24 | + + + + + +-------+ + + | Serum or | 2022-05-05 | [facility] | 9.0 | (missing) | (missing) | | plasma | 14:26 | [facility] | | [facility] protein | | [facility] | | | | | measurement | | | | | | | (mass/volume | | | | | | | ) | | | | | | + + + +-------+ + + + + | Result panel 25 | + + + + + +-------+ + + | Serum or | 2022-05-05 | [facility] | 3.6 | (missing) | (missing) | | plasma | 14:26 | [facility] | | | | albumin | | [facility] | | | | | measurement | | | | | | | (mass/volume | | | | | | | ) | | | | | | + + + +-------+ + + + + | Result panel 26 | + + + + + +-------+ + + | Serum | 2022-05-05 | [facility] | 5.4 | (missing) | (missing) | | globulin | 14:26 | [facility] | | | measurement | | [facility] | | | | | (mass/volume | | | | | | | ) | | | | | | + + + +-------+ + + + + | Result panel 27 | + + + + + +--------+ + + | Serum or | 2022-05-05 | [facility] | 0.67 | (missing) | (missing) | | plasma | 14:26 | [facility] | | | | | albumin/glob | | Hospital | | | | | ulin mass | | | | | | | ratio | | | | | | + + + +--------+ + + + + | Result panel 28 | + + + + + +-------+ + + | Serum or | 2022-05-05 | [facility] | 0.7 | (missing) | (missing) | | plasma total | 14:26 | [facility] | | | | bilirubin | | [facility] | | | | | measurement | | | | | | | (mass/volume | | | | | | | ) | | | | | | + + + +-------+ + + + + | Result panel 29 | + + + + + +------+ + + | Serum or | 2022-05-05 | [facility] | 54 | (missing) | (missing) | | plasma | 14:26 | [facility] | | | | | aspartate | | Hospital | | | | | aminotransfe | | | | | | | rase | | | | | | | measurement | | | | | | | (enzymatic | | | | | | | activity/vol | | | | | | | ume) | | | | | | + + + +------+ + + + + | Result panel 30 | + + + + + +------+ + + | Serum or | 2022-05-05 | [facility] | 42 | (missing) | (missing) | | plasma | 14:26 | [facility] | | | | | alanine | | [facility] | | | | | aminotransfe | | | | | | | rase | | | | | | | measurement | | | | | | | (enzymatic | | | | | | | activity/vol | | | | | | | ume) | | | | | | + + + +------+ + + + + | Result panel 31 | + + + + + +------+ + + | Serum or | 2022-05-05 | [facility] | 68 | (missing) | (missing) | | plasma | 14:26 | [facility] | | | | alkaline | | [facility] | | | | | phosphatase | | | | | | | measurement | | | | | | | (enzymatic | | | | | | | activity/vol | | | | | | | ume) | | | | | | + + + +------+ + + + + | Result panel 32 | + + + + + +-------+ + + | | 2022-05-05 | [facility] | 8.2 | (missing) | (missing) | | (unavailable | 14:26 | [facility] | | | | + + + +-------+ + + + + | Result panel 33 | + + + + + +--------+ + + | | 2022-05-05 | [facility] | 4.27 | (missing) | (missing) | | (unavailable | 14:26 | [facility] | | | | + + + +--------+ + + + + | Result panel 34 | + + + + + +--------+ + + | | 2022-05-05 | [facility] | 14.9 | (missing) | (missing) | | (unavailable | 14:26 | [facility] | | | | + + + +--------+ + + + + | Result panel 35 | + + + + + +--------+ + + | | 2022-05-05 | [facility] | 43.4 | (missing) | (missing) | | (unavailable | 14:26 | [facility] | | | | + + + +--------+ + + + + | Result panel 36 | + + + + + +---------+ + + | | 2022-05-05 | [facility] | 101.7 | (missing) | (missing) | | (unavailable | 14:26 | [facility] | | | | + + + +---------+ + + + + | Result panel 37 | + + + + + +--------+ + + | | 2022-05-05 | [facility] | 34.8 | (missing) | (missing) | | (unavailable | 14:26 | [facility] | | | | + + + +--------+ + + + + | Result panel 38 | + + + + + +--------+ + + | | 2022-05-05 | [facility] | 34.3 | (missing) | (missing) | | (unavailable | 14:26 | [facility] | | | | + + + +--------+ + + + + | Result panel 39 | + + + + + +--------+ + + | | 2022-05-05 | [facility] | 13.8 | (missing) | (missing) | | (unavailable | 14:26 | [facility] | | | | + + + +--------+ + + + + | Result panel 40 | + + + + + +-------+ + + | | 2022-05-05 | [facility] | 345 | (missing) | (missing) | | (unavailable | 14:26 | [facility] | | | | + + + +-------+ + + + + | Result panel 41 | + + + + + +--------+ + + | | 2022-05-05 | [facility] | 69.1 | (missing) | (missing) | | (unavailable | 14:26 | [facility] | | | | + + + +--------+ + + + + | Result panel 42 | + + + + + +--------+ + + | | 2022-05-05 | [facility] | 21.3 | (missing) | (missing) | | (unavailable | 14:26 | [facility] | | | | + + + +--------+ + + + + | Result panel 43 | + + + + + +-------+ + + | | 2022-05-05 | [facility] | 7.5 | (missing) | (missing) | | (unavailable | 14:26 | [facility] | | | | + + + +-------+ + + + + | Result panel 44 | + + + + + +-------+ + + | | 2022-05-05 | [facility] | 1.3 | (missing) | (missing) | | (unavailable | 14:26 | [facility] | | | | + + + +-------+ + + + + | Result panel 45 | + + + + + +-------+ + + | | 2022-05-05 | [facility] | 0.8 | (missing) | (missing) | | (unavailable | 14:26 | [facility] | | | | + + + +-------+ + + + + | Result panel 46 | + + + + + +-------+ + + | | 2022-05-05 | [facility] | 9.0 | (missing) | (missing) | | (unavailable | 14:26 | [facility] | | | | + + + +-------+ + + + + | Result panel 47 | + + + + + +-------+ + + | | 2022-05-05 | [facility] | 3.6 | (missing) | (missing) | | (unavailable | 14:26 | [facility] | | | | + + + +-------+ + + + + | Result panel 48 | + + + + + +-------+ + + | | 2022-05-05 | [facility] | 5.4 | (missing) | (missing) | | (unavailable | 14:26 | [facility] | | | | + + + +-------+ + + + + | Result panel 49 | + + + + + +--------+ + + | | 2022-05-05 | [facility] | 0.67 | (missing) | (missing) | | (unavailable | 14:26 | [facility] | | | | + + + +--------+ + + + + | Result panel 50 | + + + + + +--------+ + + | | 2022-05-05 | [facility] | 61.6 | (missing) | (missing) | | (unavailable | 15:57 | [facility] | | | | + + + +--------+ + + + + | Result panel 51 | + + + + + +--------+ + + | Serum or | 2022-05-05 | [facility] | 61.6 | (missing) | (missing) | | plasma | 15:57 | [facility] cardiac | | [facility] | | | | | troponin I | | | | | | | measurement | | | | | | | by high | | | | | | | senstivity | | | | | | | method | | | | | | | (mass/volume | | | | | | | ) | | | | | | + + + +--------+ + + + + | Result panel 52 | + + + + + +--------+ + + | | 2022-05-05 | [facility] | 61.6 | (missing) | (missing) | | (unavailable | 15:57 | [facility] | | | | + + + +--------+ + + + + | Result panel 53 | + + + + + +--------+ + + | Serum or | 2022-05-05 | [facility] | 61.6 | (missing) | (missing) | | plasma | 15:57 | [facility] | | | | | troponin I | | | | | | | measurement | | | | | | | by high | | | | | | | senstivity | | | | | | | method | | | | | | | (mass/volume | | | | | | | ) | | | | | | + + + +--------+ + + + + | Result panel 54 | + + + + + +---------+ + + | Specific | 2022-05-05 | [facility] | 1.025 | (missing) | (missing) | | gravity ur | 16:53 | [facility] | | | | dipstick | | [facility] | | | | + + + +---------+ + + + + | Result panel 55 | + + + + + +---------+---------+ + | | 2022-05-05 | [facility] | 82.80 | mg/dL | (missing) | | (unavailable | 16:53 | [facility] | | | | + + + +---------+---------+ + + + | Result panel 56 | + + + + + +------+ + + | | 2022-05-05 | [facility] | 56 | (missing) | (missing) | | (unavailable | 16:53 | [facility] | | | | + + + +------+ + + + + | Result panel 57 | + + + + + + + + + | | 2022-05-05 | [facility] | NEGATIVE | (missing) | (missing) | | (unavailable | 16:53 | [facility] | | | | + + + + + + + + + | Result panel 58 | + + + + + + + + + | | 2022-05-05 | [facility] | NEGATIVE | (missing) | (missing) | | (unavailable | 16:53 | [facility] | | | | + + + + + + + + + | Result panel 59 | + + + + + + + + + | | 2022-05-05 | [facility] | NEGATIVE | (missing) | (missing) | | (unavailable | 16:53 | [facility] | | | | + + + + + + + + + | Result panel 60 | + + + + + + + + + | Urine | 2022-05-05 | [facility] | TRACE-I | (missing) | (missing) | | hemoglobin | 16:53 | [facility] | | | | | detection by | | Hospital | | | | | test strip | | | | | | + + + + + + + + + | Result panel 61 | + + + + + + + + + | | 2022-05-05 | [facility] | NEGATIVE | (missing) | (missing) | | (unavailable | 16:53 | [facility] | | | | + + + + + + + + + | Result panel 62 | + + + + + + + + + | | 2022-05-05 | [facility] | NEGATIVE | (missing) | (missing) | | (unavailable | 16:53 | [facility] | | | | + + + + + + + + + | Result panel 63 | + + + + + + + + + | | 2022-05-05 | [facility] | NEGATIVE | (missing) | (missing) | | (unavailable | 16:53 | [facility] | | | | + + + + + + + + + | Result panel 64 | + + + + + + + + + | | 2022-05-05 | [facility] | NEGATIVE | (missing) | (missing) | | (unavailable | 16:53 | [facility] ) [facility] | [facility] | | | | + + + + + + + + + | Result panel 65 | + + + + + + + + + | | 2022-05-05 | [facility] | NEGATIVE | (missing) | (missing) | | (unavailable | 16:53 | [facility] ) [facility] | | | | + + + + + + + + + | Result panel 66 | + + + + + + + + + | | 2022-05-05 | [facility] | NEGATIVE | (missing) | (missing) | | (unavailable | 16:53 | [facility] ) [facility] | | | | + + + + + + + + + | Result panel 67 | + + + + + + + + + | | 2022-05-05 | [facility] | NEGATIVE | (missing) | (missing) | | (unavailable | 16:53 | [facility] ) [facility] | [facility] | | | | + + + + + + + + + | Result panel 68 | + + + + + + + + + | | 2022-05-05 | [facility] | NEGATIVE | (missing) | (missing) | | (unavailable | 16:53 | [facility] | | | | + + + + + + + + + | Result panel 69 | + + + + + + + + + | | 2022-05-05 | [facility] | NEGATIVE | (missing) | (missing) | | (unavailable | 16:53 | [facility] ) [facility] | | | | + + + + + + + + + | Result panel 70 | + + + + + + + + + | | 2022-05-05 | [facility] | NEGATIVE | (missing) | (missing) | | (unavailable | 16:53 | [facility] ) | | [facility] | | | | + + + + + + + + + | Result panel 71 | + + + + + +-------+ + + | Urine pH | 2022-05-05 | [facility] | 5.0 | (missing) | (missing) | | measurement | 16:53 | [facility] | | | | | by test | | Hospital | | | | | strip | | | | | | + + + +-------+ + + + + | Result panel 72 | + + + + + + + + + | | 2022-05-05 | [facility] | SEE SCANNED | (missing) | (missing) | | (unavailable | 16:53 | [facility] | REPORT | | | | ) | | Hospital | | | | + + + + + + + + + | Result panel 73 | + + + + + + + + + | Protein | 2022-05-05 | [facility] | NEGATIVE | (missing) | (missing) | | urine test | 16:53 | [facility] | | | | | strip | | Hospital | | | | + + + + + + + + + | Result panel 74 | + + + + + +-------+ + + | Automated | 2022-05-05 | [facility] | 2-3 | (missing) | (missing) | | urine | 16:53 | [facility] | | | | | sediment | | [facility] | | | | | erythrocyte | | | | | | | count by | | | | | | | microscopy | | | | | | | (number/high | | | | | | | power | | | | | | | field) | | | | | | + + + +-------+ + + + + | Result panel 75 | + + + + + +-------+ + + | Automated | 2022-05-05 | [facility] | 0-1 | (missing) | (missing) | | urine | 16:53 | [facility] | | | | | sediment | | [facility] | | | | | leukocyte | | | | | | | count by | | | | | | | microscopy | | | | | | | (number/high | | | | | | | power | | | | | | | field) | | | | | | + + + +-------+ + + + + | Result panel 76 | + + + + + + + + + | Automated | 2022-05-05 | [facility] | SQUAMOUS 1+ | (missing) | (missing) | | urine | 16:53 | [facility] | | | | | sediment | | Hospital | | | | | epithelial | | | | | | | cell count | | | | | | | by | | | | | | | microscopy | | | | | | | (number/high | | | | | | | power | | | | | | | field) | | | | | | + + + + + + + + + | Result panel 77 | + + + + + + + + + | [place] | 2022-05-05 | [facility] | NONE SEEN | (missing) | (missing) | | typing in | 16:53 | [facility] | | | | | urine | | [facility] | | | | | sediment by | | | | | | | light | | | | | | | microscopy | | | | | | + + + + + + + + + | Result panel 78 | + + + + + + + + + | | 2022-05-05 | [facility] | NORMAL | (missing) | (missing) | | Urobilinogen | 16:53 | [facility] | | | | | [facility] | | | | | [Mass/volume | | | | | | | ] in Urine | | | | | | | by Test | | | | | | | strip | | | | | | + + + + + + + + + | Result panel 79 | + + + + + +------+ + + | Automated | 2022-05-05 | [facility] | 1+ | (missing) | (missing) | | urine | 16:53 | [facility] | | | | | sediment | | Hospital | | | | | bacteria | | | | | | | count by | | | | | | | microscopy | | | | | | | (number/high | | | | | | | power | | | | | | | field) | | | | | | + + + +------+ + + + + | Result panel 80 | + + + + + + + + + | Automated | 2022-05-05 | [facility] | NONE SEEN | (missing) | (missing) | | casts count | 16:53 | [facility] | | | | | in urine | | Hospital | | | | | sediment by | | | | | | | microscopy | | | | | | | low power | | | | | | | field | | | | | | | (number/area | | | | | | | ) | | | | | | + + + + + + + + + | Result panel 81 | + + + + + + + + + | Urinalysis | 2022-05-05 | [facility] | CLEAN CATCH | (missing) | (missing) | | specimen | 16:53 | [facility] | | | | | collection | | Hospital | | | | | method | | | | | | + + + + + + + + + | Result panel 82 | + + + + + +---------+ + + | Urine | 2022-05-05 | [facility] | 82.80 | (missing) | (missing) | | creatinine | 16:53 | [facility] | | | | | measurement | | [facility] | | | | | (mass/volume | | | | | | | ) | | | | | | + + + +---------+ + + + + | Result panel 83 | + + + + + +------+ + + | Urine | 2022-05-05 | [facility] | 56 | (missing) | (missing) | | sodium | 16:53 | [facility] | | | | | measurement | | [facility] | | | | | (moles/volum | | | | | | | e) | | | | | | + + + +------+ + + + + | Result panel 84 | + + + + + + + + + | Urine | 2022-05-05 | [facility] | NEGATIVE | (missing) | (missing) | | [id number] | 16:53 | [facility] | | | | | ahydrocannab | | Hospital | | | | | inol (THC) | | | | | | | detection | | | | | | + + + + + + + + + | Result panel 85 | + + + + + + + + + | Urine | 2022-05-05 | [facility] | NEGATIVE | (missing) | (missing) | | amphetamines | 16:53 | [facility] | | | | | detection | | Hospital | | | | | by screening | | | | | | | method | | | | | | + + + + + + + + + | Result panel 86 | + + + + + + + + + | Urine | 2022-05-05 | [facility] | NEGATIVE | (missing) | (missing) | | barbiturates | 16:53 | [facility] | | | | detection | | Hospital | | | | | by screening | | | | | | | method | | | | | | + + + + + + + + + | Result panel 87 | + + + + + + + + + | Urine | 2022-05-05 | [facility] | NEGATIVE | (missing) | (missing) | | benzodiazepi | 16:53 | [facility] | | | | | shira | | Hospital | | | | | detection by | | | | | | | screening | | | | | | | method | | | | | | + + + + + + + + + | Result panel 88 | + + + + + + + + + | Urine | 2022-05-05 | [facility] | NEGATIVE | (missing) | (missing) | | cocaine | 16:53 | [facility] | | | | | detection | | Hospital | | | | + + + + + + + + + | Result panel 89 | + + + + + + + + + | Urine | 2022-05-05 | [facility] | NEGATIVE | (missing) | (missing) | | nitrite | 16:53 | [facility] | | | | | detection by | | Hospital | | | | | test strip | | | | | | + + + + + + + + + | Result panel 90 | + + + + + + + + + | Screening | 2022-05-05 | [facility] | NEGATIVE | (missing) | (missing) | | urine | 16:53 | [facility] | | | | | tricyclic | | Hospital | | | | | antidepressa | | | | | | | nts | | | | | | | detection | | | | | | + + + + + + + + + | Result panel 91 | + + + + + + + + + | Urine | 2022-05-05 | [facility] | NEGATIVE | (missing) | (missing) | | phencyclidin | 16:53 | [facility] | | | | | e detection | | Hospital | | | | | by screening | | | | | | | method | | | | | | + + + + + + + + + | Result panel 92 | + + + + + + + + + | Urine | 2022-05-05 | [facility] | NEGATIVE | (missing) | (missing) | | opiates | 16:53 | [facility] | | | | | detection by | | Hospital | | | | | screening | | | | | | | method | | | | | | + + + + + + + + + | Result panel 93 | + + + + + + + + + | Urine | 2022-05-05 | [facility] | NEGATIVE | (missing) | (missing) | | methadone | 16:53 | [facility] | | | | | detection by | | Hospital | | | | | screening | | | | | | | method | | | | | | + + + + + + + + + | Result panel 94 | + + + + + + + + + | Urine | 2022-05-05 | [facility] | NEGATIVE | (missing) | (missing) | | methamphetam | 16:53 | [facility] | | | | | ine | | Hospital | | | | | detection by | | | | | | | screening | | | | | | | method | | | | | | + + + + + + + + + | Result panel 95 | + + + + + + + + + | Urine | 2022-05-05 | [facility] | NEGATIVE | (missing) | (missing) | | methylenedio | 16:53 | [facility] | | | | | xymethamphet | | Hospital | | | | | amine | | | | | | | detection by | | | | | | | screening | | | | | | | method | | | | | | + + + + + + + + + | Result panel 96 | + + + + + + + + + | Urine | 2022-05-05 | [facility] | NEGATIVE | (missing) | (missing) | | methylenedio | 16:53 | [facility] | | | | | xymethamphet | | Hospital | | | | | amine | | | | | | | detection by | | | | | | | screening | | | | | | | method | | | | | | + + + + + + + + + | Result panel 97 | + + + + + + + + + | Urine | 2022-05-05 | [facility] | NEGATIVE | (missing) | (missing) | | buprenorphin | 16:53 | [facility] | | | | | e detection | | Hospital | | | | + + + + + + + + + | Result panel 98 | + + + + + + + + + | Urine urea | 2022-05-05 | [facility] | SEE SCANNED | (missing) | (missing) | | nitrogen | 16:53 | [facility] | REPORT | | | | measurement | | Hospital | | | | | (mass/volume | | | | | | | ) | | | | | | + + + + + + + + + | Result panel 99 | + + + + + +---------+ + + | Urine | 2022-05-05 | [facility] | TRACE | (missing) | (missing) | | leukocyte | 16:53 | [facility] | | | | | esterase | | Hospital | | | | | detection by | | | | | | | dipstick | | | | | | + + + +---------+ + + + + | Result panel 100 | + + + + + +-------+ + + | Automated | 2022-05-05 | [facility] | 2-3 | (missing) | (missing) | | urine | 16:53 | [facility] | | | | | sediment | | Hospital | | | | | erythrocyte | | | | | | | count by | | | | | | | microscopy | | | | | | | (number/high | | | | | | | power | | | | | | | field) | | | | | | + + + +-------+ + + + + | Result panel 101 | + + + + + +-------+ + + | Automated | 2022-05-05 | [facility] | 0-1 | (missing) | (missing) | | urine | 16:53 | [facility] | | | | | sediment | | Hospital | | | | | leukocyte | | | | | | | count by | | | | | | | microscopy | | | | | | | (number/high | | | | | | | power | | | | | | | field) | | | | | | + + + +-------+ + + + + | Result panel 102 | + + + + + + + + + | Automated | 2022-05-05 | [facility] | SQUAMOUS 1+ | (missing) | (missing) | | urine | 16:53 | [facility] | | | | | sediment | | Hospital | | | | | epithelial | | | | | | | cell count | | | | | | | by | | | | | | | microscopy | | | | | | | (number/high | | | | | | | power | | | | | | | field) | | | | | | + + + + + + + + + | Result panel 103 | + + + + + +-------+ + + | | 2022-05-05 | [facility] | 2-3 | (missing) | (missing) | | (unavailable | 16:53 | [facility] ) | | [facility] | | | | + + + +-------+ + + + + | Result panel 104 | + + + + + +-------+ + + | | 2022-05-05 | [facility] | 0-1 | (missing) | (missing) | | (unavailable | 16:53 | [facility] ) | | [facility] | | | | + + + +-------+ + + + + | Result panel 105 | + + + + + + + + + | | 2022-05-05 | [facility] | SQUAMOUS 1+ | (missing) | (missing) | | (unavailable | 16:53 | [facility] | [facility] ) | | [facility] | | | | + + + + + + + + + | Result panel 106 | + + + + + + + + + | | 2022-05-05 | [facility] | NONE SEEN | (missing) | (missing) | | (unavailable | 16:53 | [facility] ) | | [facility] | | | | + + + + + + + + + | Result panel 107 | + + + + + +------+ + + | | 2022-05-05 | [facility] | 1+ | (missing) | (missing) | | (unavailable | 16:53 | [facility] ) | | [facility] | | | | + + + +------+ + + + + | Result panel 108 | + + + + + + + + + | | 2022-05-05 | [facility] | NONE SEEN | (missing) | (missing) | | (unavailable | 16:53 | [facility] ) | | [facility] | | | | + + + + + + + + + | Result panel 109 | + + + + + + + + + | [place] | 2022-05-05 | [facility] | NONE SEEN | (missing) | (missing) | | typing in | 16:53 | [facility] | | | | urine | | Hospital | | | | | sediment by | | | | | | | light | | | | | | | microscopy | | | | | | + + + + + + + + + | Result panel 110 | + + + + + + + + + | | 2022-05-05 | [facility] | CLEAN CATCH | (missing) | (missing) | | (unavailable | 16:53 | [facility] ) | | [facility] | | | | + + + + + + + + + | Result panel 111 | + + + + + +---------+---------+ + | | 2022-05-05 | [facility] | 82.80 | mg/dL | (missing) | | (unavailable | 16:53 | [facility] ) | | [facility] | | | | + + + +---------+---------+ + + + | Result panel 112 | + + + + + +------+ + + | | 2022-05-05 | [facility] | 56 | (missing) | (missing) | | (unavailable | 16:53 | [facility] ) | | [facility] | | | | + + + +------+ + + + + | Result panel 113 | + + + + + + + + + | | 2022-05-05 | [facility] | NEGATIVE | (missing) | (missing) | | (unavailable | 16:53 | [facility] ) | | [facility] | | | | + + + + + + + + + | Result panel 114 | + + + + + + + + + | | 2022-05-05 | [facility] | NEGATIVE | (missing) | (missing) | | (unavailable | 16:53 | [facility] ) | | [facility] | | | | + + + + + + + + + | Result panel 115 | + + + + + + + + + | | 2022-05-05 | [facility] | NEGATIVE | (missing) | (missing) | | (unavailable | 16:53 | [facility] | | | | + + + + + + + + + | Result panel 116 | + + + + + + + + + | | 2022-05-05 | [facility] | NEGATIVE | (missing) | (missing) | | (unavailable | 16:53 | [facility] | | | | + + + + + + + + + | Result panel 117 | + + + + + + + + + | | 2022-05-05 | [facility] | NEGATIVE | (missing) | (missing) | | (unavailable | 16:53 [facility] | | | | + + + + + + + + + | Result panel 118 | + + + + + + + + + | | 2022-05-05 | [facility] | NEGATIVE | (missing) | (missing) | | (unavailable | 16:53 | [facility] | | | | + + + + + + + + + | Result panel 119 | + + + + + +------+ + + | Automated | 2022-05-05 | [facility] | 1+ | (missing) | (missing) | | urine | 16:53 | [facility] | | | | sediment | | [facility] | | | | | bacteria | | | | | | | count by | | | | | | | microscopy | | | | | | | (number/high | | | | | | | power | | | | | | | field) | | | | | | + + + +------+ + + + + | Result panel 120 | + + + + + + + + + | | 2022-05-05 | [facility] | NEGATIVE | (missing) | (missing) | | (unavailable | 16:53 | [facility] | | | | + + + + + + + + + | Result panel 121 | + + + + + + + + + | | 2022-05-05 | [facility] | NEGATIVE | (missing) | (missing) | | (unavailable | 16:53 | [facility] | | | | + + + + + + + + + | Result panel 122 | + + + + + + + + + | | 2022-05-05 | [facility] | NEGATIVE | (missing) | (missing) | | (unavailable | 16:53 | [facility] | | | | + + + + + + + + + | Result panel 123 | + + + + + + + + + | | 2022-05-05 | [facility] | NEGATIVE | (missing) | (missing) | | (unavailable | 16:53 | [facility] | | | | + + + + + + + + + | Result panel 124 | + + + + + + + + + | | 2022-05-05 | [facility] | NEGATIVE | (missing) | (missing) | | (unavailable | 16:53 | [facility] | | | | + + + + + + + + + | Result panel 125 | + + + + + + + + + | | 2022-05-05 | [facility] | NEGATIVE | (missing) | (missing) | | (unavailable | 16:53 | [facility] | | | | + + + + + + + + + | Result panel 126 | + + + + + + + + + | | 2022-05-05 | [facility] | NEGATIVE | (missing) | (missing) | | (unavailable | 16:53 | [facility] | | | | + + + + + + + + + | Result panel 127 | + + + + + + + + + | | 2022-05-05 | [facility] | SEE SCANNED | (missing) | (missing) | | (unavailable | 16:53 | [facility] REPORT | | | | ) | | [facility] | | | | + + + + + + + + + | Result panel 128 | + + + + + + + + + | Automated | 2022-05-05 | [facility] | NONE SEEN | (missing) | (missing) | | casts count | 16:53 | [facility] | | | | in urine | | [facility] | | | | | sediment by | | | | | | | microscopy | | | | | | | low [facility] | | | | | | | field | | | | | | | (number/area | | | | | | | ) | | | | | | + + + + + + + + + | Result panel 129 | + + + + + + + + + | Urinalysis | 2022-05-05 | [facility] | CLEAN CATCH | (missing) | (missing) | | specimen | 16:53 | [facility] collection [facility] | | | | | method | | | | | | + + + + + + + + + | Result panel 130 | + + + + + +---------+ + + | Urine | 2022-05-05 | [facility] | 82.80 | (missing) | (missing) | | creatinine | 16:53 | [facility] | | | | measurement | | [facility] | | | | | (mass/volume | | | | | | | ) | | | | | | + + + +---------+ + + + + | Result panel 131 | + + + + + +------+ + + | Urine | 2022-05-05 | [facility] | 56 | (missing) | (missing) | | sodium | 16:53 | [facility] | | | | measurement | | [facility] | | | | | (moles/volum | | | | | | | e) | | | | | | + + + +------+ + + + + | Result panel 132 | + + + + + + + + + | Color of | 2022-05-05 | [facility] | YELLOW | (missing) | (missing) | | Urine by | 16:53 | [facility] | | | | Auto | | Hospital | | | | + + + + + + + + + | Result panel 133 | + + + + + +---------+ + + | Character | 2022-05-05 | [facility] | CLEAR | (missing) | (missing) | | of Urine | 16:53 | [facility] | | | | + + + +---------+ + + + + | Result panel 134 | + + + + + + + + + | Glucose | 2022-05-05 | [facility] | NEGATIVE | (missing) | (missing) | | [Presence] | 16:53 | [facility] | | | | | in Urine by | | Hospital | | | | | Test strip | | | | | | + + + + + + + + + | Result panel 135 | + + + + + + + + + | Urine total | 2022-05-05 | [facility] | NEGATIVE | (missing) | (missing) | | bilirubin | 16:53 | [facility] | | | | | detection by | | Hospital | | | | | test strip | | | | | | + + + + + + + + + | Result panel 136 | + + + + + +---------+ + + | Urine | 2022-05-05 | [facility] | TRACE | (missing) | (missing) | | ketones | 16:53 | [facility] | | | | | detection by | | Hospital | | | | | test strip | | | | | | + + + +---------+ + + + + | Result panel 137 | + + + + + +---------+ + + | Specific | 2022-05-05 | [facility] | 1.025 | (missing) | (missing) | | gravity ur | 16:53 | [facility] | | | | | dipstick | | Hospital | | | | + + + +---------+ + + + + | Result panel 138 | + + + + + + + + + | Urine | 2022-05-05 | [facility] | TRACE-I | (missing) | (missing) | | hemoglobin | 16:53 | [facility] | | | | | detection by | | Hospital | | | | | test strip | | | | | | + + + + + + + + + | Result panel 139 | + + + + + + + + + | Urine | 2022-05-05 | [facility] | NEGATIVE | (missing) | (missing) | | [id number] | 16:53 | [facility] | | | | | ahydrocannab | | Hospital | | | | | inol ([facility]) | | | | | | | detection | | | | | | + + + + + + + + + | Result panel 140 | + + + + + +-------+ + + | Urine pH | 2022-05-05 | [facility] | 5.0 | (missing) | (missing) | | measurement | 16:53 | [facility] | | | | | by test | | Hospital | | | | | strip | | | | | | + + + +-------+ + + + + | Result panel 141 | + + + + + + + + + | Protein | 2022-05-05 | [facility] | NEGATIVE | (missing) | (missing) | | urine test | 16:53 | [facility] | | | | | strip | | Hospital | | | | + + + + + + + + + | Result panel 142 | + + + + + + + + + | | 2022-05-05 | [facility] | NORMAL | (missing) | (missing) | | Urobilinogen | 16:53 | [facility] | | | | [facility] | | | | | [Mass/volume | | | | | | | ] in Urine | | | | | | | by Test | | | | | | | strip | | | | | | + + + + + + + + + | Result panel 143 | + + + + + + + + + | Urine | 2022-05-05 | [facility] | NEGATIVE | (missing) | (missing) | | nitrite | 16:53 | [facility] | | | | | detection by | | Hospital | | | | | test strip | | | | | | + + + + + + + + + | Result panel 144 | + + + + + +---------+ + + | Urine | 2022-05-05 | [facility] | TRACE | (missing) | (missing) | | leukocyte | 16:53 | [facility] | | | | | esterase | | Hospital | | | | | detection by | | | | | | | dipstick | | | | | | + + + +---------+ + + + + | Result panel 145 | + + + + + +-------+ + + | Automated | 2022-05-05 | [facility] | 2-3 | (missing) | (missing) | | urine | 16:53 | [facility] | | | | | sediment | | Hospital | | | | | erythrocyte | | | | | | | count by | | | | | | | microscopy | | | | | | | (number/high | | | | | | | power | | | | | | | field) | | | | | | + + + +-------+ + + + + | Result panel 146 | + + + + + +-------+ + + | Automated | 2022-05-05 | [facility] | 0-1 | (missing) | (missing) | | urine | 16:53 | [facility] | | | | | sediment | | Hospital | | | | | leukocyte | | | | | | | count by | | | | | | | microscopy | | | | | | | (number/high | | | | | | | power | | | | | | | field) | | | | | | + + + +-------+ + + + + | Result panel 147 | + + + + + + + + + | Automated | 2022-05-05 | [facility] | SQUAMOUS 1+ | (missing) | (missing) | | urine | 16:53 | [facility] | | | | | sediment | | Hospital | | | | | epithelial | | | | | | | cell count | | | | | | | by | | | | | | | microscopy | | | | | | | (number/high | | | | | | | power | | | | | | | field) | | | | | | + + + + + + + + + | Result panel 148 | + + + + + + + + + | Crystal | 2022-05-05 | [facility] | NONE SEEN | (missing) | (missing) | | typing in | 16:53 | [facility] | | | | | urine | | Hospital | | | | | sediment by | | | | | | | light | | | | | | | microscopy | | | | | | + + + + + + + + + | Result panel 149 | + + + + + +------+ + + | Automated | 2022-05-05 | [facility] | 1+ | (missing) | (missing) | | urine | 16:53 | [facility] | | | | | sediment | | Hospital | | | | | bacteria | | | | | | | count by | | | | | | | microscopy | | | | | | | (number/high | | | | | | | power | | | | | | | field) | | | | | | + + + +------+ + + + + | Result panel 150 | + + + + + + + + + | Urine | 2022-05-05 | [facility] | NEGATIVE | (missing) | (missing) | | amphetamines | 16:53 | [facility] | | | | | detection | | Hospital | | | | | by screening | | | | | | | method | | | | | | + + + + + + + + + | Result panel 151 | + + + + + + + + + | Automated | 2022-05-05 | [facility] | NONE SEEN | (missing) | (missing) | | casts count | 16:53 | [facility] | | | | | in urine | | Hospital | | | | | sediment by | | | | | | | microscopy | | | | | | | low power | | | | | | | field | | | | | | | (number/area | | | | | | | ) | | | | | | + + + + + + + + + | Result panel 152 | + + + + + + + + + | Urinalysis | 2022-05-05 | [facility] | CLEAN CATCH | (missing) | (missing) | | specimen | 16:53 | [facility] | | | | collection | | Hospital | | | | | method | | | | | | + + + + + + + + + | Result panel 153 | + + + + + +---------+ + + | Urine | 2022-05-05 | [facility] | 82.80 | (missing) | (missing) | | creatinine | 16:53 | [facility] | | | | | measurement | | Hospital | | | | | (mass/volume | | | | | | | ) | | | | | | + + + +---------+ + + + + | Result panel 154 | + + + + + +------+ + + | Urine | 2022-05-05 | [facility] | 56 | (missing) | (missing) | | sodium | 16:53 | [facility] | | | | | measurement | | Hospital | | | | | (moles/volum | | | | | | | e) | | | | | | + + + +------+ + + + + | Result panel 155 | + + + + + + + + + | Urine | 2022-05-05 | [facility] | NEGATIVE | (missing) | (missing) | | [id number] | 16:53 | [facility] | | | | | ahydrocannab | | Hospital | | | | | inol ([facility]) | | | | | | | detection | | | | | | + + + + + + + + + | Result panel 156 | + + + + + + + + + | Urine | 2022-05-05 | [facility] | NEGATIVE | (missing) | (missing) | | amphetamines | 16:53 | [facility] | | | | | detection | | Hospital | | | | | by screening | | | | | | | method | | | | | | + + + + + + + + + | Result panel 157 | + + + + + + + + + | Urine | 2022-05-05 | [facility] | NEGATIVE | (missing) | (missing) | | barbiturates | 16:53 | [facility] | | | | | detection | | Hospital | | | | | by screening | | | | | | | method | | | | | | + + + + + + + + + | Result panel 158 | + + + + + + + + + | Urine | 2022-05-05 | [facility] | NEGATIVE | (missing) | (missing) | | benzodiazepi | 16:53 | [facility] | | | | | shira | | Hospital | | | | | detection by | | | | | | | screening | | | | | | | method | | | | | | + + + + + + + + + | Result panel 159 | + + + + + + + + + | Urine | 2022-05-05 | [facility] | NEGATIVE | (missing) | (missing) | | cocaine | 16:53 | [facility] | | | | | detection | | Hospital | | | | + + + + + + + + + | Result panel 160 | + + + + + + + + + | Screening | 2022-05-05 | [facility] | NEGATIVE | (missing) | (missing) | | urine | 16:53 | [facility] | | | | | tricyclic | | Hospital | | | | | antidepressa | | | | | | | nts | | | | | | | detection | | | | | | + + + + + + + + + | Result panel 161 | + + + + + + + + + | Urine | 2022-05-05 | [facility] | NEGATIVE | (missing) | (missing) | | barbiturates | 16:53 | [facility] | | | | | detection | | Hospital | | | | | by screening | | | | | | | method | | | | | | + + + + + + + + + | Result panel 162 | + + + + + + + + + | Urine | 2022-05-05 | [facility] | NEGATIVE | (missing) | (missing) | | phencyclidin | 16:53 | [facility] | | | | | e detection | | Hospital | | | | | by screening | | | | | | | method | | | | | | + + + + + + + + + | Result panel 163 | + + + + + + + + + | Urine | 2022-05-05 | [facility] | NEGATIVE | (missing) | (missing) | | opiates | 16:53 | [facility] | | | | | detection by | | Hospital | | | | | screening | | | | | | | method | | | | | | + + + + + + + + + | Result panel 164 | + + + + + + + + + | Urine | 2022-05-05 | [facility] | NEGATIVE | (missing) | (missing) | | methadone | 16:53 | [facility] | | | | | detection by | | Hospital | | | | | screening | | | | | | | method | | | | | | + + + + + + + + + | Result panel 165 | + + + + + + + + + | Urine | 2022-05-05 | [facility] | NEGATIVE | (missing) | (missing) | | methamphetam | 16:53 | [facility] | | | | | ine | | Hospital | | | | | detection by | | | | | | | screening | | | | | | | method | | | | | | + + + + + + + + + | Result panel 166 | + + + + + + + + + | Urine | 2022-05-05 | [facility] | NEGATIVE | (missing) | (missing) | | methylenedio | 16:53 | [facility] | | | | | xymethamphet | | Hospital | | | | | amine | | | | | | | detection by | | | | | | | screening | | | | | | | method | | | | | | + + + + + + + + + | Result panel 167 | + + + + + + + + + | Urine | 2022-05-05 | [facility] | NEGATIVE | (missing) | (missing) | | methylenedio | 16:53 | [facility] | | | | | xymethamphet | | Hospital | | | | | amine | | | | | | | detection by | | | | | | | screening | | | | | | | method | | | | | | + + + + + + + + + | Result panel 168 | + + + + + + + + + | Urine | 2022-05-05 | [facility] | NEGATIVE | (missing) | (missing) | | buprenorphin | 16:53 | [facility] | | | | | e detection | | Hospital | | | | + + + + + + + + + | Result panel 169 | + + + + + + + + + | Urine urea | 2022-05-05 | [facility] | SEE SCANNED | (missing) | (missing) | | nitrogen | 16:53 | [facility] | REPORT | | | | measurement | | Hospital | | | | | (mass/volume | | | | | | | ) | | | | | | + + + + + + + + + | Result panel 170 | + + + + + + + + + | Urine | 2022-05-05 | [facility] | NEGATIVE | (missing) | (missing) | | benzodiazepi | 16:53 | [facility] | | | | | shira | | Hospital | | | | | detection by | | | | | | | screening | | | | | | | method | | | | | | + + + + + + + + + | Result panel 171 | + + + + + + + + + | Urine | 2022-05-05 | [facility] | NEGATIVE | (missing) | (missing) | | cocaine | 16:53 | [facility] | | | | | detection | | Hospital | | | | + + + + + + + + + | Result panel 172 | + + + + + + + + + | Screening | 2022-05-05 | [facility] | NEGATIVE | (missing) | (missing) | | urine | 16:53 | [facility] | | | | | tricyclic | | Hospital | | | | | antidepressa | | | | | | | nts | | | | | | | detection | | | | | | + + + + + + + + + | Result panel 173 | + + + + + + + + + | Urine | 2022-05-05 | [facility] | NEGATIVE | (missing) | (missing) | | phencyclidin | 16:53 | [facility] | | | | | e detection | | Hospital | | | | | by screening | | | | | | | method | | | | | | + + + + + + + + + | Result panel 174 | + + + + + + + + + | | 2022-05-05 | [facility] | YELLOW | (missing) | (missing) | | (unavailable | 16:53 | [facility] | | | ) | | [facility] | | | | + + + + + + + + + | Result panel 175 | + + + + + +---------+ + + | | 2022-05-05 | [facility] | CLEAR | (missing) | (missing) | | (unavailable | 16:53 | [facility] | | | | ) | | [facility] | | | | + + + +---------+ + + + + | Result panel 176 | + + + + + + + + + | | 2022-05-05 | [facility] | NEGATIVE | (missing) | (missing) | | (unavailable | 16:53 | [facility] | | | | ) | | [facility] | | | | + + + + + + + + + | Result panel 177 | + + + + + + + + + | Urine | 2022-05-05 | [facility] | NEGATIVE | (missing) | (missing) | | opiates | 16:53 | [facility] | | | | | detection by | | Hospital | | | | | screening | | | | | | | method | | | | | | + + + + + + + + + | Result panel 178 | + + + + + + + + + | | 2022-05-05 | [facility] | NEGATIVE | (missing) | (missing) | | (unavailable | 16:53 | [facility] | | | | ) | | [facility] | | | | + + + + + + + + + | Result panel 179 | + + + + + +---------+ + + | | 2022-05-05 | [facility] | TRACE | (missing) | (missing) | | (unavailable | 16:53 | [facility] | ) | | [facility] | | | | + + + +---------+ + + + + | Result panel 180 | + + + + + +---------+ + + | | 2022-05-05 | [facility] | 1.025 | (missing) | (missing) | | (unavailable | 16:53 | [facility] | | ) | | [facility] | | | | + + + +---------+ + + + + | Result panel 181 | + + + + + + + + + | | 2022-05-05 | [facility] | TRACE-I | (missing) | (missing) | | (unavailable | 16:53 | [facility] | [facility] ) | | [facility] | | | | + + + + + + + + + | Result panel 182 | + + + + + +-------+ + + | | 2022-05-05 | [facility] | 5.0 | (missing) | (missing) | | (unavailable | 16:53 | [facility] | | | ) | | [facility] | | | | + + + +-------+ + + + + | Result panel 183 | + + + + + + + + + | | 2022-05-05 | [facility] | NEGATIVE | (missing) | (missing) | | (unavailable | 16:53 | [facility] | | | | ) | | [facility] | | | | + + + + + + + + + | Result panel 184 | + + + + + + + + + | | 2022-05-05 | [facility] | NORMAL | (missing) | (missing) | | (unavailable | 16:53 | [facility] | | | | ) | | [facility] | | | | + + + + + + + + + | Result panel 185 | + + + + + + + + + | | 2022-05-05 | [facility] | NEGATIVE | (missing) | (missing) | | (unavailable | 16:53 | [facility] | | [facility] ) | | [facility] | | | | + + + + + + + + + | Result panel 186 | + + + + + +---------+ + + | | 2022-05-05 | [facility] | TRACE | (missing) | (missing) | | (unavailable | 16:53 | [facility] ) | | [facility] | | | | + + + +---------+ + + + + | Result panel 187 | + + + + + +-------+ + + | | 2022-05-05 | [facility] | 2-3 | (missing) | (missing) | | (unavailable | 16:53 | [facility] | | [facility] ) | | [facility] | | | | + + + +-------+ + + + + | Result panel 188 | + + + + + + + + + | Urine | 2022-05-05 | [facility] | NEGATIVE | (missing) | (missing) | | methadone | 16:53 | [facility] | | | | | detection by | | Hospital | | | | | screening | | | | | | | method | | | | | | + + + + + + + + + | Result panel 189 | + + + + + +-------+ + + | | 2022-05-05 | [facility] | 0-1 | (missing) | (missing) | | (unavailable | 16:53 | [facility] ) | | [facility] | | | | + + + +-------+ + + + + | Result panel 190 | + + + + + + + + + | | 2022-05-05 | [facility] | SQUAMOUS 1+ | (missing) | (missing) | | (unavailable | 16:53 | [facility] | [facility] ) | | [facility] | | | | + + + + + + + + + | Result panel 191 | + + + + + + + + + | | 2022-05-05 | [facility] | NONE SEEN | (missing) | (missing) | | (unavailable | 16:53 | [facility] | [facility] ) | | [facility] | | | | + + + + + + + + + | Result panel 192 | + + + + + +------+ + + | | 2022-05-05 | [facility] | 1+ | (missing) | (missing) | | (unavailable | 16:53 | [facility] | [facility] ) | | [facility] | | | | + + + +------+ + + + + | Result panel 193 | + + + + + + + + + | | 2022-05-05 | [facility] | NONE SEEN | (missing) | (missing) | | (unavailable | 16:53 | [facility] | [facility] ) | | [facility] | | | | + + + + + + + + + | Result panel 194 | + + + + + + + + + | | 2022-05-05 | [facility] | CLEAN CATCH | (missing) | (missing) | | (unavailable | 16:53 | [facility] ) | | [facility] | | | | + + + + + + + + + | Result panel 195 | + + + + + +---------+---------+ + | | 2022-05-05 | [facility] | 82.80 | mg/dL | (missing) | | (unavailable | 16:53 | [facility] | [facility] | ) | | [facility] | | | | + + + +---------+---------+ + + + | Result panel 196 | + + + + + +------+ + + | | 2022-05-05 | [facility] | 56 | (missing) | (missing) | | (unavailable | 16:53 | [facility] ) | | [facility] | | | | + + + +------+ + + + + | Result panel 197 | + + + + + + + + + | Urine | 2022-05-05 | [facility] | NEGATIVE | (missing) | (missing) | | methamphetam | 16:53 | [facility] | | | | | ine | | Hospital | | | | | detection by | | | | | | | screening | | | | | | | method | | | | | | + + + + + + + + + | Result panel 198 | + + + + + + + + + | | 2022-05-05 | [facility] | NEGATIVE | (missing) | (missing) | | (unavailable | 16:53 | [facility] ) | | [facility] | | | | + + + + + + + + + | Result panel 199 | + + + + + + + + + | | 2022-05-05 | [facility] | NEGATIVE | (missing) | (missing) | | (unavailable | 16:53 | [facility] | [facility] ) | | [facility] | | | | + + + + + + + + + | Result panel 200 | + + + + + + + + + | | 2022-05-05 | [facility] | NEGATIVE | (missing) | (missing) | | (unavailable | 16:53 | [facility] ) | | [facility] | | | | + + + + + + + + + | Result panel 201 | + + + + + + + + + | | 2022-05-05 | [facility] | NEGATIVE | (missing) | (missing) | | (unavailable | 16:53 | [facility] | [facility] ) | | [facility] | | | | + + + + + + + + + | Result panel 202 | + + + + + + + + + | | 2022-05-05 | [facility] | NEGATIVE | (missing) | (missing) | | (unavailable | 16:53 | [facility] | [facility] ) | | [facility] | | | | + + + + + + + + + | Result panel 203 | + + + + + + + + + | | 2022-05-05 | [facility] | NEGATIVE | (missing) | (missing) | | (unavailable | 16:53 | [facility] | [facility] ) | | [facility] | | | | + + + + + + + + + | Result panel 204 | + + + + + + + + + | | 2022-05-05 | [facility] | NEGATIVE | (missing) | (missing) | | (unavailable | 16:53 | [facility] | [facility] ) | | [facility] | | | | + + + + + + + + + | Result panel 205 | + + + + + + + + + | | 2022-05-05 | [facility] | NEGATIVE | (missing) | (missing) | | (unavailable | 16:53 | [facility] | [facility] ) | | [facility] | | | | + + + + + + + + + | Result panel 206 | + + + + + + + + + | | 2022-05-05 | [facility] | NEGATIVE | (missing) | (missing) | | (unavailable | 16:53 | [facility] | | | | ) | | [facility] | | | | + + + + + + + + + | Result panel 207 | + + + + + + + + + | | 2022-05-05 | [facility] | NEGATIVE | (missing) | (missing) | | (unavailable | 16:53 | [facility] | | | | ) | | [facility] | | | | + + + + + + + + + | Result panel 208 | + + + + + + + + + | Urine | 2022-05-05 | [facility] | NEGATIVE | (missing) | (missing) | | methylenedio | 16:53 | [facility] | | | | | xymethamphet | | Hospital | | | | | amine | | | | | | | detection by | | | | | | | screening | | | | | | | method | | | | | | + + + + + + + + + | Result panel 209 | + + + + + + + + + | | 2022-05-05 | [facility] | NEGATIVE | (missing) | (missing) | | (unavailable | 16:53 | [facility] | [facility] ) | | [facility] | | | | + + + + + + + + + | Result panel 210 | + + + + + + + + + | | 2022-05-05 | [facility] | NEGATIVE | (missing) | (missing) | | (unavailable | 16:53 | [facility] | | [facility] ) | | [facility] | | | | + + + + + + + + + | Result panel 211 | + + + + + + + + + | | 2022-05-05 | [facility] | NEGATIVE | (missing) | (missing) | | (unavailable | 16:53 | [facility] | | [facility] | ) | | [facility] | | | | + + + + + + + + + | Result panel 212 | + + + + + + + + + | | 2022-05-05 | [facility] | SEE SCANNED | (missing) | (missing) | | (unavailable | 16:53 | [facility] REPORT | | | | ) | | Hospital | | | | + + + + + + + + + | Result panel 213 | + + + + + + + + + | Urine | 2022-05-05 | [facility] | NEGATIVE | (missing) | (missing) | | methylenedio | 16:53 | [facility] | | | | | xymethamphet | | Hospital | | | | | amine | | | | | | | detection by | | | | | | | screening | | | | | | | method | | | | | | + + + + + + + + + | Result panel 214 | + + + + + + + + + | Urine | 2022-05-05 | [facility] | NEGATIVE | (missing) | (missing) | | buprenorphin | 16:53 | [facility] | | | | | e detection | | Hospital | | | | + + + + + + + + + | Result panel 215 | + + + + + + + + + | Color of | 2022-05-05 | [facility] | YELLOW | (missing) | (missing) | | Urine by | 16:53 | [facility] | | | | | Auto | | Hospital | | | | + + + + + + + + + | Result panel 216 | + + + + + +---------+ + + | Character | 2022-05-05 | [facility] | CLEAR | (missing) | (missing) | | of Urine | 16:53 | [facility] | | | | | | [facility] | | | | + + + +---------+ + + + + | Result panel 217 | + + + + + + + + + | Glucose | 2022-05-05 | [facility] | NEGATIVE | (missing) | (missing) | | [Presence] | 16:53 | [facility] | | | | | in Urine by | | Hospital | | | | | Test strip | | | | | | + + + + + + + + + | Result panel 218 | + + + + + + + + + | | 2022-05-05 | [facility] | YELLOW | (missing) | (missing) | | (unavailable | 16:53 | [facility] | | | | ) | | [facility] | | | | + + + + + + + + + | Result panel 219 | + + + + + +---------+ + + | | 2022-05-05 | [facility] | CLEAR | (missing) | (missing) | | (unavailable | 16:53 | [facility] | | | | ) | | [facility] | | | | + + + +---------+ + + + + | Result panel 220 | + + + + + + + + + | | 2022-05-05 | [facility] | NEGATIVE | (missing) | (missing) | | (unavailable | 16:53 | [facility] | | | | ) | | [facility] | | | | + + + + + + + + + | Result panel 221 | + + + + + + + + + | | 2022-05-05 | [facility] | NEGATIVE | (missing) | (missing) | | (unavailable | 16:53 | [facility] | | | | ) | | [facility] | | | | + + + + + + + + + | Result panel 222 | + + + + + + + + + | Urine total | 2022-05-05 | [facility] | NEGATIVE | (missing) | (missing) | | bilirubin | 16:53 | [facility] | | | | | detection by | | Hospital | | | | | test strip | | | | | | + + + + + + + + + | Result panel 223 | + + + + + +---------+ + + | | 2022-05-05 | [facility] | TRACE | (missing) | (missing) | | (unavailable | 16:53 | [facility] | | | | + + + +---------+ + + + + | Result panel 224 | + + + + + +---------+ + + | | 2022-05-05 | [facility] | 1.025 | (missing) | (missing) | | (unavailable | 16:53 | [facility] | | | | + + + +---------+ + + + + | Result panel 225 | + + + + + + + + + | | 2022-05-05 | [facility] | TRACE-I | (missing) | (missing) | | (unavailable | 16:53 | [facility] | | | | + + + + + + + + + | Result panel 226 | + + + + + +-------+ + + | | 2022-05-05 | [facility] | 5.0 | (missing) | (missing) | | (unavailable | 16:53 | [facility] | | | | + + + +-------+ + + + + | Result panel 227 | + + + + + + + + + | | 2022-05-05 | [facility] | NEGATIVE | (missing) | (missing) | | (unavailable | 16:53 | [facility] | | | | + + + + + + + + + | Result panel 228 | + + + + + + + + + | | 2022-05-05 | [facility] | NORMAL | (missing) | (missing) | | (unavailable | 16:53 | [facility] | | | | + + + + + + + + + | Result panel 229 | + + + + + + + + + | | 2022-05-05 | [facility] | NEGATIVE | (missing) | (missing) | | (unavailable | 16:53 [facility] | | | | + + + + + + + + + | Result panel 230 | + + + + + +---------+ + + | | 2022-05-05 | [facility] | TRACE | (missing) | (missing) | | (unavailable | 16:53 [facility] | | | | + + + +---------+ + + + + | Result panel 231 | + + + + + +-------+ + + | | 2022-05-05 | [facility] | 2-3 | (missing) | (missing) | | (unavailable | 16:53 | [facility] | | | | + + + +-------+ + + + + | Result panel 232 | + + + + + +-------+ + + | | 2022-05-05 | [facility] | 0-1 | (missing) | (missing) | | (unavailable | 16:53 | [facility] | | | | + + + +-------+ + + + + | Result panel 233 | + + + + + +---------+ + + | Urine | 2022-05-05 | [facility] | TRACE | (missing) | (missing) | | ketones | 16:53 | [facility] | | | | detection by | | Hospital | | | | | test strip | | | | | | + + + +---------+ + + + + | Result panel 234 | + + + + + + + + + | | 2022-05-05 | [facility] | SQUAMOUS 1+ | (missing) | (missing) | | (unavailable | 16:53 | [facility] | | | | + + + + + + + + + | Result panel 235 | + + + + + + + + + | | 2022-05-05 | [facility] | NONE SEEN | (missing) | (missing) | | (unavailable | 16:53 | [facility] | | | | + + + + + + + + + | Result panel 236 | + + + + + +------+ + + | | 2022-05-05 | [facility] | 1+ | (missing) | (missing) | | (unavailable | 16:53 | [facility] | | | | + + + +------+ + + + + | Result panel 237 | + + + + + + + + + | | 2022-05-05 | [facility] | NONE SEEN | (missing) | (missing) | | (unavailable | 16:53 | [facility] | | | | + + + + + + + + + | Result panel 238 | + + + + + + + + + | | 2022-05-05 | [facility] | CLEAN CATCH | (missing) | (missing) | | (unavailable | 16:53 | [facility] | | | | + + + + + + + + + | Result panel 239 | + + + + + + + + + | Respiratory | 2022-05-05 | [facility] | NEGATIVE | (missing) | (missing) | | specimen | 19:06 | [facility] | | 2019 novel | | [facility] | | | | | coronavirus | | | | | | | RNA | | | | | | | detection | | | | | | + + + + + + + + + | Result panel 240 | + + + + + + + + + | | 2022-05-05 | [facility] | NEGATIVE | (missing) | (missing) | | (unavailable | 19:06 | [facility] | | | | + + + + + + + + + | Result panel 241 | + + + + + + + + + | | 2022-05-05 | [facility] | NEGATIVE | (missing) | (missing) | | (unavailable | 19:06 | [facility] | | | | + + + + + + + + + | Result panel 242 | + + + + + + + + + | | 2022-05-05 | [facility] | NEGATIVE | (missing) | (missing) | | (unavailable | 19:06 | [facility] | | | | + + + + + + + + + | Result panel 243 | + + + + + + + + + | | 2022-05-05 | [facility] | NEGATIVE | (missing) | (missing) | | (unavailable | 19:06 | [facility] | | | | + + + + + + + + + | Result panel 244 | + + + + + + + + + | Influenza | 2022-05-05 | [facility] | NEGATIVE | (missing) | (missing) | | virus A RNA | 19:06 | [facility]] | | [facility] | | | | | in | | | | | | | Respiratory | | | | | | | specimen by | | | | | | | TITUS | | | | | | | withprobe | | | | | | | detection | | | | | | + + + + + + + + + | Result panel 245 | + + + + + + + + + | Influenza | 2022-05-05 | [facility] | NEGATIVE | (missing) | (missing) | | virus B RNA | 19:06 | [facility] | | | | | in | | | | | | | Respiratory | | | | | | | specimen by | | | | | | | TITUS | | | | | | | withprobe | | | | | | | detection | | | | | | + + + + + + + + + | Result panel 246 | + + + + + + + + + | Respiratory | 2022-05-05 | [facility] | NEGATIVE | (missing) | (missing) | | syncytial | 19:06 | [facility] | | | | virus (RSV) | | [facility] | | | | | RNA | | | | | | | detection by | | | | | | | probe and | | | | | | | target | | | | | | | amplificatio | | | | | | | n method in | | | | | | | culture | | | | | | | isolate | | | | | | + + + + + + + + + | Result panel 247 | + + + + + +------+---------+ + | | 2022-05-08 | [facility] | 97 | mg/dL | (missing) | | (unavailable | 05:46 | [facility] | | | | + + + +------+---------+ + + + | Result panel 248 | + + + + + +------+---------+ + | | 2022-05-08 | [facility] | 25 | mg/dL | (missing) | | (unavailable | 05:46 | [facility] | | | | + + + +------+---------+ + + + | Result panel 249 | + + + + + +--------+---------+ + | | 2022-05-08 | [facility] | 1.87 | mg/dL | (missing) | | (unavailable | 05:46 | [facility] | | | | + + + +--------+---------+ + + + | Result panel 250 | + + + + + +------+ + + | | 2022-05-08 | [facility] | 27 | (missing) | (missing) | | (unavailable | 05:46 | [facility] | | | | + + + +------+ + + + + | Result panel 251 | + + + + + +---------+ + + | | 2022-05-08 | [facility] | 13.36 | (missing) | (missing) | | (unavailable | 05:46 | [facility] | | | | + + + +---------+ + + + + | Result panel 252 | + + + + + +-------+ + + | | 2022-05-08 | [facility] | 134 | (missing) | (missing) | | (unavailable | 05:46 | [facility] | | | | + + + +-------+ + + + + | Result panel 253 | + + + + + +-------+ + + | | 2022-05-08 | [facility] | 4.1 | (missing) | (missing) | | (unavailable | 05:46 | [facility] | | | | + + + +-------+ + + + + | Result panel 254 | + + + + + +-------+ + + | | 2022-05-08 | [facility] | 101 | (missing) | (missing) | | (unavailable | 05:46 | [facility] | | | | + + + +-------+ + + + + | Result panel 255 | + + + + + +------+ + + | | 2022-05-08 | [facility] | 22 | (missing) | (missing) | | (unavailable | 05:46 | [facility] | | | | + + + +------+ + + + + | Result panel 256 | + + + + + +--------+ + + | | 2022-05-08 | [facility] | 15.1 | (missing) | (missing) | | (unavailable | 05:46 | [facility] | | | | + + + +--------+ + + + + | Result panel 257 | + + + + + +-------+---------+ + | | 2022-05-08 | [facility] | 9.9 | mg/dL | (missing) | | (unavailable | 05:46 | [facility] | | | | + + + +-------+---------+ + + + | Result panel 258 | + + + + + +-------+ + + | | 2022-05-17 | [facility] | 8.9 | (missing) | (missing) | | (unavailable | 09:50 | [facility] | | | | + + + +-------+ + + + + | Result panel 259 | + + + + + +--------+ + + | | 2022-05-17 | [facility] | 3.40 | (missing) | (missing) | | (unavailable | 09:50 | [facility] | | | | + + + +--------+ + + + + | Result panel 260 | + + + + + +--------+ + + | | 2022-05-17 | [facility] | 11.7 | (missing) | (missing) | | (unavailable | 09:50 | [facility] | | | | + + + +--------+ + + + + | Result panel 261 | + + + + + +--------+ + + | | 2022-05-17 | [facility] | 34.8 | (missing) | (missing) | | (unavailable | 09:50 | [facility] | | | | + + + +--------+ + + + + | Result panel 262 | + + + + + +---------+ + + | | 2022-05-17 | [facility] | 102.2 | (missing) | (missing) | | (unavailable | 09:50 | [facility] | | | | + + + +---------+ + + + + | Result panel 263 | + + + + + +--------+ + + | | 2022-05-17 | [facility] | 34.4 | (missing) | (missing) | | (unavailable | 09:50 | [facility] | | | | + + + +--------+ + + + + | Result panel 264 | + + + + + +--------+ + + | | 2022-05-17 | [facility] | 33.7 | (missing) | (missing) | | (unavailable | 09:50 | [facility] | | | | + + + +--------+ + + + + | Result panel 265 | + + + + + +--------+ + + | | 2022-05-17 | [facility] | 13.4 | (missing) | (missing) | | (unavailable | 09:50 | [facility] | | | | + + + +--------+ + + + + | Result panel 266 | + + + + + +-------+ + + | | 2022-05-17 | [facility] | 389 | (missing) | (missing) | | (unavailable | 09:50 | [facility] | | | | + + + +-------+ + + + + | Result panel 267 | + + + + + +--------+ + + | | 2022-05-17 | [facility] | 71.8 | (missing) | (missing) | | (unavailable | 09:50 | [facility] | | | | + + + +--------+ + + + + | Result panel 268 | + + + + + +--------+ + + | | 2022-05-17 | [facility] | 19.0 | (missing) | (missing) | | (unavailable | 09:50 | [facility] | | | | + + + +--------+ + + + + | Result panel 269 | + + + + + +-------+ + + | | 2022-05-17 | [facility] | 7.2 | (missing) | (missing) | | (unavailable | 09:50 | [facility] | | | | + + + +-------+ + + + + | Result panel 270 | + + + + + +-------+ + + | | 2022-05-17 | [facility] | 1.4 | (missing) | (missing) | | (unavailable | 09:50 | [facility] | | | | + + + +-------+ + + + + | Result panel 271 | + + + + + +-------+ + + | | 2022-05-17 | [facility] | 0.6 | (missing) | (missing) | | (unavailable | 09:50 | [facility] | | | | + + + +-------+ + + + + | Result panel 272 | + + + + + +-------+---------+ + | | 2022-05-17 | [facility] | 194 | mg/dL | (missing) | | (unavailable | 09:50 | [facility] | | | | + + + +-------+---------+ + + + | Result panel 273 | + + + + + +------+---------+ + | | 2022-05-17 | [facility] | 37 | mg/dL | (missing) | | (unavailable | 09:50 | [facility] | | | | + + + +------+---------+ + + + | Result panel 274 | + + + + + +--------+---------+ + | | 2022-05-17 | [facility] | 2.16 | mg/dL | (missing) | | (unavailable | 09:50 | [facility] | | | | + + + +--------+---------+ + + + | Result panel 275 | + + + + + +------+ + + | | 2022-05-17 | [facility] | 22 | (missing) | (missing) | | (unavailable | 09:50 | [facility] | | | | + + + +------+ + + + + | Result panel 276 | + + + + + +---------+ + + | | 2022-05-17 | [facility] | 17.12 | (missing) | (missing) | | (unavailable | 09:50 | [facility] | | | | + + + +---------+ + + + + | Result panel 277 | + + + + + +-------+ + + | | 2022-05-17 | [facility] | 137 | (missing) | (missing) | | (unavailable | 09:50 | [facility] | | | | + + + +-------+ + + + + | Result panel 278 | + + + + + +-------+ + + | | 2022-05-17 | [facility] | 4.0 | (missing) | (missing) | | (unavailable | 09:50 | [facility] | | | | + + + +-------+ + + + + | Result panel 279 | + + + + + +-------+ + + | | 2022-05-17 | [facility] | 101 | (missing) | (missing) | | (unavailable | 09:50 | [facility] | | | | + + + +-------+ + + + + | Result panel 280 | + + + + + +------+ + + | | 2022-05-17 | [facility] | 22 | (missing) | (missing) | | (unavailable | 09:50 | [facility] | | | | + + + +------+ + + + + | Result panel 281 | + + + + + +--------+ + + | | 2022-05-17 | [facility] | 18.0 | (missing) | (missing) | | (unavailable | 09:50 | [facility] | | | | + + + +--------+ + + + + | Result panel 282 | + + + + + +--------+---------+ + | | 2022-05-17 | [facility] | 10.0 | mg/dL | (missing) | | (unavailable | 09:50 | [facility] | | | | + + + +--------+---------+ + + + | Result panel 283 | + + + + + +-------+ + + | | 2022-05-17 | [facility] | 7.8 | (missing) | (missing) | | (unavailable | 09:50 | [facility] | | | | + + + +-------+ + + + + | Result panel 284 | + + + + + +-------+ + + | | 2022-05-17 | [facility] | 3.2 | (missing) | (missing) | | (unavailable | 09:50 | [facility] | | | | + + + +-------+ + + + + | Result panel 285 | + + + + + +-------+ + + | | 2022-05-17 | [facility] | 4.6 | (missing) | (missing) | | (unavailable | 09:50 | [facility] | | | | + + + +-------+ + + + + | Result panel 286 | + + + + + +--------+ + + | | 2022-05-17 | [facility] | 0.70 | (missing) | (missing) | | (unavailable | 09:50 | [facility] | | | | + + + +--------+ + + + + | Result panel 287 | + + + + + +-------+ + + | | 2022-05-17 | [facility] | 0.4 | (missing) | (missing) | | (unavailable | 09:50 | [facility] | | | | + + + +-------+ + + + + | Result panel 288 | + + + + + +------+ + + | | 2022-05-17 | [facility] | 22 | (missing) | (missing) | | (unavailable | 09:50 | [facility] | | | | + + + +------+ + + + + | Result panel 289 | + + + + + +------+ + + | | 2022-05-17 | [facility] | 39 | (missing) | (missing) | | (unavailable | 09:50 | [facility] | | | | + + + +------+ + + + + | Result panel 290 | + + + + + +------+ + + | | 2022-05-17 | [facility] | 57 | (missing) | (missing) | | (unavailable | 09:50 | [facility] | | | | + + + +------+ + + + + | Result panel 291 | + + + + + + + + + | | 2022-05-17 | [facility] | NEGATIVE | (missing) | (missing) | | (unavailable | 10:00 | [facility] | | | | + + + + + + + + + | Result panel 292 | + + + + + + + + + | | 2022-05-17 | [facility] | NEGATIVE | (missing) | (missing) | | (unavailable | 10:00 | [facility] | | | | + + + + + + + + + | Result panel 293 | + + + + + + + + + | | 2022-05-17 | [facility] | NEGATIVE | (missing) | (missing) | | (unavailable | 10:00 | [facility] | | | | + + + + + + + + + | Result panel 294 | + + + + + + + + + | | 2022-05-17 | [facility] | NEGATIVE | (missing) | (missing) | | (unavailable | 10:00 | [facility] | | | | + + + + + + + + + | Result panel 295 | + + + + + +--------+ + + | Serum or | 2022-06-07 | [facility] | 42.9 | (missing) | (missing) | | plasma | 13:25 | [facility] cardiac [facility] | [facility] | | | | | troponin I | | | | | | | measurement | | | | | | | by high | | | | | | | senstivity | | | | | | | method | | | | | | | (mass/volume | | | | | | | ) | | | | | | + + + +--------+ + + + + | Result panel 296 | + + + + + +--------+ + + | | 2022-06-07 | [facility] | 42.9 | (missing) | (missing) | | (unavailable | 13:25 | [facility] | | | | + + + +--------+ + + + + | Result panel 297 | + + + + + + + + + | Color of | 2022-06-07 | [facility] | YELLOW | (missing) | (missing) | | Urine by | 14:46 | [facility] | | | Auto | | [facility] | | | | + + + + + + + + + | Result panel 298 | + + + + + +---------+ + + | Character | 2022-06-07 | [facility] | CLEAR | (missing) | (missing) | | of Urine | 14:46 | [facility] | | | | + + + +---------+ + + + + | Result panel 299 | + + + + + + + + + | Glucose | 2022-06-07 | [facility] | NEGATIVE | (missing) | (missing) | | [Presence] | 14:46 | [facility] | | | | | in Urine by | | Hospital | | | | | Test strip | | | | | | + + + + + + + + + | Result panel 300 | + + + + + + + + + | Urine total | 2022-06-07 | [facility] | NEGATIVE | (missing) | (missing) | | bilirubin | 14:46 | [facility] | | | | | detection by | | Hospital | | | | | test strip | | | | | | + + + + + + + + + | Result panel 301 | + + + + + + + + + | Urine | 2022-06-07 | [facility] | NEGATIVE | (missing) | (missing) | | ketones | 14:46 | [facility] | | | | | detection by | | Hospital | | | | | test strip | | | | | | + + + + + + + + + | Result panel 302 | + + + + + + + + + | Specific | 2022-06-07 | [facility] | <=1.005 | (missing) | (missing) | | gravity ur | 14:46 | [facility] | | | | dipstick | | [facility] | | | | + + + + + + + + + | Result panel 303 | + + + + + + + + + | Urine | 2022-06-07 | [facility] | NEGATIVE | (missing) | (missing) | | hemoglobin | 14:46 | [facility] | | | | | detection by | | Hospital | | | | | test strip | | | | | | + + + + + + + + + | Result panel 304 | + + + + + +-------+ + + | Urine pH | 2022-06-07 | [facility] | 6.0 | (missing) | (missing) | | measurement | 14:46 | [facility] | | | | | by test | | Hospital | | | | | strip | | | | | | + + + +-------+ + + + + | Result panel 305 | + + + + + + + + + | Protein | 2022-06-07 | [facility] | NEGATIVE | (missing) | (missing) | | urine test | 14:46 | [facility] | | | | strip | | Hospital | | | | + + + + + + + + + | Result panel 306 | + + + + + +-------+ + + | | 2022-06-07 | [facility] | 1.0 | (missing) | (missing) | | Urobilinogen | 14:46 | [facility] | [facility] | | | | | [Mass/volume | | | | | | | ] in Urine | | | | | | | by Test | | | | | | | strip | | | | | | + + + +-------+ + + + + | Result panel 307 | + + + + + + + + + | Urine | 2022-06-07 | [facility] | NEGATIVE | (missing) | (missing) | | nitrite | 14:46 | [facility] | | | | detection by | | Hospital | | | | | test strip | | | | | | + + + + + + + + + | Result panel 308 | + + + + + + + + + | Urine | 2022-06-07 | [facility] | NEGATIVE | (missing) | (missing) | | leukocyte | 14:46 | [facility] | | | | esterase | | Hospital | | | | | detection by | | | | | | | dipstick | | | | | | + + + + + + + + + | Result panel 309 | + + + + + + + + + | | 2022-06-07 | [facility] | YELLOW | (missing) | (missing) | | (unavailable | 14:46 | [facility] ) [facility] | [facility] | | | | + + + + + + + + + | Result panel 310 | + + + + + +---------+ + + | | 2022-06-07 | [facility] | CLEAR | (missing) | (missing) | | (unavailable | 14:46 | [facility] | | | | + + + +---------+ + + + + | Result panel 311 | + + + + + + + + + | | 2022-06-07 | [facility] | NEGATIVE | (missing) | (missing) | | (unavailable | 14:46 | [facility] | | | | + + + + + + + + + | Result panel 312 | + + + + + + + + + | | 2022-06-07 | [facility] | NEGATIVE | (missing) | (missing) | | (unavailable | 14:46 | [facility] | | | | + + + + + + + + + | Result panel 313 | + + + + + + + + + | | 2022-06-07 | [facility] | NEGATIVE | (missing) | (missing) | | (unavailable | 14:46 | [facility] | | | | + + + + + + + + + | Result panel 314 | + + + + + + + + + | | 2022-06-07 | [facility] | <=1.005 | (missing) | (missing) | | (unavailable | 14:46 | [facility] | | | | + + + + + + + + + | Result panel 315 | + + + + + + + + + | | 2022-06-07 | [facility] | NEGATIVE | (missing) | (missing) | | (unavailable | 14:46 | [facility] | | | | + + + + + + + + + | Result panel 316 | + + + + + +-------+ + + | | 2022-06-07 | [facility] | 6.0 | (missing) | (missing) | | (unavailable | 14:46 | [facility] | | | | + + + +-------+ + + + + | Result panel 317 | + + + + + + + + + | | 2022-06-07 | [facility] | NEGATIVE | (missing) | (missing) | | (unavailable | 14:46 | [facility] | | | | + + + + + + + + + | Result panel 318 | + + + + + +-------+ + + | | 2022-06-07 | [facility] | 1.0 | (missing) | (missing) | | (unavailable | 14:46 | [facility] | | | | + + + +-------+ + + + + | Result panel 319 | + + + + + + + + + | | 2022-06-07 | [facility] | NEGATIVE | (missing) | (missing) | | (unavailable | 14:46 | [facility] | | | | + + + + + + + + + | Result panel 320 | + + + + + + + + + | | 2022-06-07 | [facility] | NEGATIVE | (missing) | (missing) | | (unavailable | 14:46 | [facility] | | | | + + + + + + + + + | Result panel 321 | + + + + + + + + + | Respiratory | 2022-06-07 | [facility] | NEGATIVE | (missing) | (missing) | | specimen | 15:24 | [facility] | | | 2019 novel | | [facility] | | | | | coronavirus | | | | | | | RNA | | | | | | | detection | | | | | | + + + + + + + + + | Result panel 322 | + + + + + + + + + | Influenza | 2022-06-07 | [facility] | NEGATIVE | (missing) | (missing) | | virus A RNA | 15:24 | [facility] | | | [Presence] | | Hospital | | | | | in | | | | | | | Respiratory | | | | | | | specimen by | | | | | | | TITUS | | | | | | | withprobe | | | | | | | detection | | | | | | + + + + + + + + + | Result panel 323 | + + + + + + + + + | Influenza | 2022-06-07 | [facility] | NEGATIVE | (missing) | (missing) | | virus B RNA | 15:24 | [facility] | | | [Presence] | | [facility] | | | | | in | | | | | | | Respiratory | | | | | | | specimen by | | | | | | | TITUS | | | | | | | withprobe | | | | | | | detection | | | | | | + + + + + + + + + | Result panel 324 | + + + + + + + + + | Respiratory | 2022-06-07 | [facility] | NEGATIVE | (missing) | (missing) | | syncytial | 15:24 | [facility] | | | | virus (RSV) | | [facility] | | | | | RNA | | | | | | | detection by | | | | | | | probe and | | | | | | | target | | | | | | | amplificatio | | | | | | | n method in | | | | | | | culture | | | | | | | isolate | | | | | | + + + + + + + + + | Result panel 325 | + + + + + + + + + | | 2022-06-07 | [facility] | NEGATIVE | (missing) | (missing) | | (unavailable | 15:24 | [facility] | | | | + + + + + + + + + | Result panel 326 | + + + + + + + + + | | 2022-06-07 | [facility] | NEGATIVE | (missing) | (missing) | | (unavailable | 15:24 | [facility] | | | | + + + + + + + + + | Result panel 327 | + + + + + + + + + | | 2022-06-07 | [facility] | NEGATIVE | (missing) | (missing) | | (unavailable | 15:24 | [facility] | | | | + + + + + + + + + | Result panel 328 | + + + + + + + + + | | 2022-06-07 | [facility] | NEGATIVE | (missing) | (missing) | | (unavailable | 15:24 | [facility] | | | | + + + + + + + + + | Result panel 329 | + + + + + +-------+ + + | | 2022-06-08 | [facility] | 6.3 | (missing) | (missing) | | (unavailable | 09:36 | [facility] | | | | + + + +-------+ + + + + | Result panel 330 | + + + + + +--------+ + + | | 2022-06-08 | [facility] | 2.84 | (missing) | (missing) | | (unavailable | 09:36 | [facility] | | | | + + + +--------+ + + + + | Result panel 331 | + + + + + +--------+ + + | | 2022-06-08 | [facility] | 10.0 | (missing) | (missing) | | (unavailable | 09:36 | [facility] | | | | + + + +--------+ + + + + | Result panel 332 | + + + + + +--------+ + + | | 2022-06-08 | [facility] | 28.6 | (missing) | (missing) | | (unavailable | 09:36 | [facility] | | | | + + + +--------+ + + + + | Result panel 333 | + + + + + +---------+ + + | | 2022-06-08 | [facility] | 100.6 | (missing) | (missing) | | (unavailable | 09:36 | [facility] | | | | + + + +---------+ + + + + | Result panel 334 | + + + + + +--------+ + + | | 2022-06-08 | [facility] | 35.3 | (missing) | (missing) | | (unavailable | 09:36 | [facility] | | | | + + + +--------+ + + + + | Result panel 335 | + + + + + +--------+ + + | | 2022-06-08 | [facility] | 35.1 | (missing) | (missing) | | (unavailable | 09:36 | [facility] | | | | + + + +--------+ + + + + | Result panel 336 | + + + + + +--------+ + + | | 2022-06-08 | [facility] | 13.0 | (missing) | (missing) | | (unavailable | 09:36 | [facility] | | | | + + + +--------+ + + + + | Result panel 337 | + + + + + +-------+ + + | | 2022-06-08 | [facility] | 426 | (missing) | (missing) | | (unavailable | 09:36 | [facility] | | | | + + + +-------+ + + + + | Result panel 338 | + + + + + +--------+ + + | | 2022-06-08 | [facility] | 63.6 | (missing) | (missing) | | (unavailable | 09:36 | [facility] | | | | + + + +--------+ + + + + | Result panel 339 | + + + + + +--------+ + + | | 2022-06-08 | [facility] | 25.9 | (missing) | (missing) | | (unavailable | 09:36 | [facility] | | | | + + + +--------+ + + + + | Result panel 340 | + + + + + +-------+ + + | | 2022-06-08 | [facility] | 8.6 | (missing) | (missing) | | (unavailable | 09:36 | [facility] | | | | + + + +-------+ + + + + | Result panel 341 | + + + + + +-------+ + + | | 2022-06-08 | [facility] | 1.4 | (missing) | (missing) | | (unavailable | 09:36 | [facility] | | | | + + + +-------+ + + + + | Result panel 342 | + + + + + +-------+ + + | | 2022-06-08 | [facility] | 0.5 | (missing) | (missing) | | (unavailable | 09:36 | [facility] | | | | + + + +-------+ + + + + | Result panel 343 | + + + + + +-------+---------+ + | | 2022-06-08 | [facility] | 132 | mg/dL | (missing) | | (unavailable | 09:36 | [facility] | | | | + + + +-------+---------+ + + + | Result panel 344 | + + + + + +------+---------+ + | | 2022-06-08 | [facility] | 19 | mg/dL | (missing) | | (unavailable | 09:36 | [facility] | | | | + + + +------+---------+ + + + | Result panel 345 | + + + + + +--------+---------+ + | | 2022-06-08 | [facility] | 1.28 | mg/dL | (missing) | | (unavailable | 09:36 | [facility] | | | | + + + +--------+---------+ + + + | Result panel 346 | + + + + + +------+ + + | | 2022-06-08 | [facility] | 42 | (missing) | (missing) | | (unavailable | 09:36 | [facility] | | | | + + + +------+ + + + + | Result panel 347 | + + + + + +---------+ + + | | 2022-06-08 | [facility] | 14.84 | (missing) | (missing) | | (unavailable | 09:36 | [facility] | | | | + + + +---------+ + + + + | Result panel 348 | + + + + + +-------+ + + | | 2022-06-08 | [facility] | 138 | (missing) | (missing) | | (unavailable | 09:36 | [facility] | | | | + + + +-------+ + + + + | Result panel 349 | + + + + + +-------+ + + | | 2022-06-08 | [facility] | 4.0 | (missing) | (missing) | | (unavailable | 09:36 | [facility] | | | | + + + +-------+ + + + + | Result panel 350 | + + + + + +-------+ + + | | 2022-06-08 | [facility] | 104 | (missing) | (missing) | | (unavailable | 09:36 | [facility] | | | | + + + +-------+ + + + + | Result panel 351 | + + + + + +------+ + + | | 2022-06-08 | [facility] | 22 | (missing) | (missing) | | (unavailable | 09:36 | [facility] | | | | + + + +------+ + + + + | Result panel 352 | + + + + + +--------+ + + | | 2022-06-08 | [facility] | 16.0 | (missing) | (missing) | | (unavailable | 09:36 | [facility] | | | | + + + +--------+ + + + + | Result panel 353 | + + + + + +-------+---------+ + | | 2022-06-08 | [facility] | 9.3 | mg/dL | (missing) | | (unavailable | 09:36 | [facility] | | | | + + + +-------+---------+ + + + | Result panel 354 | + + + + + +-------+---------+ + | | 2022-06-08 | [facility] | 1.9 | mg/dL | (missing) | | (unavailable | 09:36 | [facility] | | | | + + + +-------+---------+ + + + | Result panel 355 | + + + + + +-------+ + + | | 2022-06-08 | [facility] | 7.2 | (missing) | (missing) | | (unavailable | 09:36 | [facility] | | | | + + + +-------+ + + + + | Result panel 356 | + + + + + +-------+ + + | | 2022-06-08 | [facility] | 3.0 | (missing) | (missing) | | (unavailable | 09:36 | [facility] | | | | + + + +-------+ + + + + | Result panel 357 | + + + + + +-------+ + + | | 2022-06-08 | [facility] | 4.2 | (missing) | (missing) | | (unavailable | 09:36 | [facility] | | | | + + + +-------+ + + + + | Result panel 358 | + + + + + +--------+ + + | | 2022-06-08 | [facility] | 0.71 | (missing) | (missing) | | (unavailable | 09:36 | [facility] | | | | + + + +--------+ + + + + | Result panel 359 | + + + + + +-------+ + + | | 2022-06-08 | [facility] | 0.9 | (missing) | (missing) | | (unavailable | 09:36 | [facility] | | | | + + + +-------+ + + + + | Result panel 360 | + + + + + +------+ + + | | 2022-06-08 | [facility] | 22 | (missing) | (missing) | | (unavailable | 09:36 | [facility] | | | | + + + +------+ + + + + | Result panel 361 | + + + + + +------+ + + | | 2022-06-08 | [facility] | 38 | (missing) | (missing) | | (unavailable | 09:36 | [facility] | | | | + + + +------+ + + + + | Result panel 362 | + + + + + +------+ + + | | 2022-06-08 | [facility] | 55 | (missing) | (missing) | | (unavailable | 09:36 | [facility] | | | | + + + +------+ + + + + | Result panel 363 | + + + + + + + + + | | 2022-06-08 | [facility] | NEGATIVE | (missing) | (missing) | | (unavailable | 10:10 | [facility] | | | | + + + + + + + + + | Serum or plasma alanine aminotransferase measurement (enzymatic activity/volume) | + + + + + +------+ + + | Serum or | 2022-06-08 | [facility] | 38 | (missing) | (missing) | | plasma | 09:36 | [facility] | | | alanine | | [facility] | | | | | aminotransfe | | | | | | | rase | | | | | | | measurement | | | | | | | (enzymatic | | | | | | | activity/vol | | | | | | | ume) | | | | | | + + + +------+ + + + + | Serum or plasma alanine aminotransferase measurement (enzymatic activity/volume) | + + + + + +------+ + + | Serum or | 2022-05-17 | [facility] | 39 | (missing) | (missing) | | plasma | 09:50 | [facility] | | | | alanine | | [facility] | | | | | aminotransfe | | | | | | | rase | | | | | | | measurement | | | | | | | (enzymatic | | | | | | | activity/vol | | | | | | | ume) | | | | | | + + + +------+ + + + + | Serum or plasma albumin measurement (mass/volume) | + + + + + +-------+ + + | Serum or | 2022-06-08 | [facility] | 3.0 | (missing) | (missing) | | plasma | 09:36 | [facility] | [facility] | albumin | | [facility] | | | | | measurement | | | | | | | (mass/volume | | | | | | | ) | | | | | | + + + +-------+ + + + + | Serum or plasma albumin measurement (mass/volume) | + + + + + +-------+ + + | Serum or | 2022-05-17 | [facility] | 3.2 | (missing) | (missing) | | plasma | 09:50 | [facility] | albumin | | [facility] | | | | | measurement | | | | | | | (mass/volume | | | | | | | ) | | | | | | + + + +-------+ + + + + | Serum or plasma albumin/globulin mass ratio | + + + + + +--------+ + + | Serum or | 2022-06-08 | [facility] | 0.71 | (missing) | (missing) | | plasma | 09:36 | [facility] | | | | albumin/glob | | [facility] | | | | | ulin mass | | | | | | | ratio | | | | | | + + + +--------+ + + + + | Serum or plasma albumin/globulin mass ratio | + + + + + +--------+ + + | Serum or | 2022-05-17 | [facility] | 0.70 | (missing) | (missing) | | plasma | 09:50 | [facility] | | | | albumin/glob | | [facility] | | | | | ulin mass | | | | | | | ratio | | | | | | + + + +--------+ + + + + | Serum or plasma calcium measurement (mass/volume) | + + + + + +-------+ + + | Serum or | 2022-05-08 | [facility] | 9.9 | (missing) | (missing) | | plasma | 05:46 | [facility] | | | calcium | | [facility] | | | | | measurement | | | | | | | (mass/volume | | | | | | | ) | | | | | | + + + +-------+ + + + + | Serum or plasma calcium measurement (mass/volume) | + + + + + +-------+ + + | Serum or | 2022-06-08 | [facility] | 9.3 | (missing) | (missing) | | plasma | 09:36 | [facility] | | | calcium | | [facility] | | | | | measurement | | | | | | | (mass/volume | | | | | | | ) | | | | | | + + + +-------+ + + + + | Serum or plasma calcium measurement (mass/volume) | + + + + + +--------+ + + | Serum or | 2022-05-17 | [facility] | 10.0 | (missing) | (missing) | | plasma | 09:50 | [facility] | | | calcium | | [facility] | | | | | measurement | | | | | | | (mass/volume | | | | | | | ) | | | | | | + + + +--------+ + + + + | Serum or plasma anion gap 4 | + + + + + +--------+ + + | Serum or | 2022-05-08 | [facility] | 15.1 | (missing) | (missing) | | plasma anion | 05:46 | [facility] | | | gap 4 | | [facility] | | | | + + + +--------+ + + + + | Serum or plasma anion gap 4 | + + + + + +--------+ + + | Serum or | 2022-06-08 | [facility] | 16.0 | (missing) | (missing) | | plasma anion | 09:36 | [facility] | | | | gap 4 | [facility] | | | | + + + +--------+ + + + + | Serum or plasma anion gap 4 | + + + + + +--------+ + + | Serum or | 2022-05-17 | [facility] | 18.0 | (missing) | (missing) | | plasma anion | 09:50 | [facility] | | | | gap 4 | [facility] | | | | + + + +--------+ + + + + | Serum or plasma magnesium measurement (mass/volume) | + + + + + +-------+ + + | Serum or | 2022-06-08 | [facility] | 1.9 | (missing) | (missing) | | plasma | 09:36 | [facility] | | | | magnesium | | [facility] | | | | | measurement | | | | | | | (mass/volume | | | | | | | ) | | | | | | + + + +-------+ + + + + | Serum or plasma aspartate aminotransferase measurement (enzymatic activity/volume) | + + + + + +------+ + + | Serum or | 2022-06-08 | [facility] | 22 | (missing) | (missing) | | plasma | 09:36 | [facility] | | | | aspartate | | Hospital | | | | | aminotransfe | | | | | | | rase | | | | | | | measurement | | | | | | | (enzymatic | | | | | | | activity/vol | | | | | | | ume) | | | | | | + + + +------+ + + + + | Serum or plasma aspartate aminotransferase measurement (enzymatic activity/volume) | + + + + + +------+ + + | Serum or | 2022-05-17 | [facility] | 22 | (missing) | (missing) | | plasma | 09:50 | [facility] | | | | aspartate | | [facility] | | | | | aminotransfe | | | | | | | rase | | | | | | | measurement | | | | | | | (enzymatic | | | | | | | activity/vol | | | | | | | ume) | | | | | | + + + +------+ + + + + | Serum or plasma total bilirubin measurement (mass/volume) | + + + + + +-------+ + + | Serum or | 2022-06-08 | [facility] | 0.9 | (missing) | (missing) | | plasma total | 09:36 | [facility] | | | | bilirubin | | [facility] | | | | | measurement | | | | | | | (mass/volume | | | | | | | ) | | | | | | + + + +-------+ + + + + | Serum or plasma total bilirubin measurement (mass/volume) | + + + + + +-------+ + + | Serum or | 2022-05-17 | [facility] | 0.4 | (missing) | (missing) | | plasma total | 09:50 | [facility] | | | | bilirubin | | [facility] | | | | | measurement | | | | | | | (mass/volume | | | | | | | ) | | | | | | + + + +-------+ + + + + | Serum or plasma carbon dioxide, total measurement (moles/volume) | + + + + + +------+ + + | Serum or | 2022-06-08 | [facility] | 22 | (missing) | (missing) | | plasma | 09:36 | [facility] | | | | | carbon | | [facility] | | | | | dioxide, | | | | | | | total | | | | | | | measurement | | | | | | | (moles/volum | | | | | | | e) | | | | | | + + + +------+ + + + + | Serum or plasma carbon dioxide, total measurement (moles/volume) | + + + + + +------+ + + | Serum or | 2022-05-17 | [facility] | 22 | (missing) | (missing) | | plasma | 09:50 | [facility] | | | | | carbon | | [facility] | | | | | dioxide, | | | | | | | total | | | | | | | measurement | | | | | | | (moles/volum | | | | | | | e) | | | | | | + + + +------+ + + + + | Serum or plasma carbon dioxide, total measurement (moles/volume) | + + + + + +------+ + + | Serum or | 2022-05-08 | [facility] | 22 | (missing) | (missing) | | plasma | 05:46 | [facility] | | | | | carbon | | [facility] | | | | | dioxide, | | | | | | | total | | | | | | | measurement | | | | | | | (moles/volum | | | | | | | e) | | | | | | + + + +------+ + + + + | Serum or plasma chloride measurement (moles/volume) | + + + + + +-------+ + + | Serum or | 2022-06-08 | [facility] | 104 | (missing) | (missing) | | plasma | 09:36 | [facility] | | | | chloride | | [facility] | | | | | measurement | | | | | | | (moles/volum | | | | | | | e) | | | | | | + + + +-------+ + + + + | Serum or plasma chloride measurement (moles/volume) | + + + + + +-------+ + + | Serum or | 2022-05-17 | [facility] | 101 | (missing) | (missing) | | plasma | 09:50 | [facility] | | | | chloride | | [facility] | | | | | measurement | | | | | | | (moles/volum | | | | | | | e) | | | | | | + + + +-------+ + + + + | Serum or plasma chloride measurement (moles/volume) | + + + + + +-------+ + + | Serum or | 2022-05-08 | [facility] | 101 | (missing) | (missing) | | plasma | 05:46 | [facility] | | | | chloride | | [facility] | | | | | measurement | | | | | | | (moles/volum | | | | | | | e) | | | | | | + + + +-------+ + + + + | Automated erythrocyte distribution width | + + + + + +--------+ + + | Automated | 2022-05-17 | [facility] | 13.4 | (missing) | (missing) | | erythrocyte | 09:50 | [facility] | | | | distribution | | [facility] | | | | | width | | | | | | + + + +--------+ + + + + | Automated erythrocyte distribution width | + + + + + +--------+ + + | Automated | 2022-06-08 | [facility] | 13.0 | (missing) | (missing) | | erythrocyte | 09:36 | [facility] | | | | distribution | | [facility] | | | | | width | | | | | | + + + +--------+ + + + + | Serum or plasma creatinine measurement (mass/volume) | + + + + + +--------+ + + | Serum or | 2022-06-08 | [facility] | 1.28 | (missing) | (missing) | | plasma | 09:36 | [facility] | | | | creatinine | | [facility] | | | | | measurement | | | | | | | (mass/volume | | | | | | | ) | | | | | | + + + +--------+ + + + + | Serum or plasma creatinine measurement (mass/volume) | + + + + + +--------+ + + | Serum or | 2022-05-17 | [facility] | 2.16 | (missing) | (missing) | | plasma | 09:50 | [facility] | | | creatinine | | [facility] | | | | | measurement | | | | | | | (mass/volume | | | | | | | ) | | | | | | + + + +--------+ + + + + | Serum or plasma creatinine measurement (mass/volume) | + + + + + +--------+ + + | Serum or | 2022-05-08 | [facility] | 1.87 | (missing) | (missing) | | plasma | 05:46 | [facility] | | | | creatinine | | [facility] | | | | | measurement | | | | | | | (mass/volume | | | | | | | ) | | | | | | + + + +--------+ + + + + | Serum globulin measurement (mass/volume) | + + + + + +-------+ + + | Serum | 2022-06-08 | [facility] | 4.2 | (missing) | (missing) | | globulin | 09:36 | [facility] | | | measurement | | [facility] | | | | | (mass/volume | | | | | | | ) | | | | | | + + + +-------+ + + + + | Serum globulin measurement (mass/volume) | + + + + + +-------+ + + | Serum | 2022-05-17 | [facility] | 4.6 | (missing) | (missing) | | globulin | 09:50 | [facility] | | | | measurement | | [facility] | | | | | (mass/volume | | | | | | | ) | | | | | | + + + +-------+ + + + + | Serum or plasma glucose measurement (mass/volume) | + + + + + +------+ + + | Serum or | 2022-05-08 | [facility] | 97 | (missing) | (missing) | | plasma | 05:46 | [facility] | | | | glucose | | [facility] | | | | | measurement | | | | | | | (mass/volume | | | | | | | ) | | | | | | + + + +------+ + + + + | Serum or plasma glucose measurement (mass/volume) | + + + + + +-------+ + + | Serum or | 2022-06-08 | [facility] | 132 | (missing) | (missing) | | plasma | 09:36 | [facility] | | | | glucose | | [facility] | | | | | measurement | | | | | | | (mass/volume | | | | | | | ) | | | | | | + + + +-------+ + + + + | Serum or plasma glucose measurement (mass/volume) | + + + + + +-------+ + + | Serum or | 2022-05-17 | [facility] | 194 | (missing) | (missing) | | plasma | 09:50 | [facility] | | | | glucose | | [facility] | | | | | measurement | | | | | | | (mass/volume | | | | | | | ) | | | | | | + + + +-------+ + + + + | Serum or plasma potassium measurement (moles/volume) | + + + + + +-------+ + + | Serum or | 2022-06-08 | [facility] | 4.0 | (missing) | (missing) | | plasma | 09:36 | [facility] | | | | potassium | | [facility] | | | | | measurement | | | | | | | (moles/volum | | | | | | | e) | | | | | | + + + +-------+ + + + + | Serum or plasma potassium measurement (moles/volume) | + + + + + +-------+ + + | Serum or | 2022-05-17 | [facility] | 4.0 | (missing) | (missing) | | plasma | 09:50 | [facility] | | | | potassium | | [facility] | | | | | measurement | | | | | | | (moles/volum | | | | | | | e) | | | | | | + + + +-------+ + + + + | Serum or plasma potassium measurement (moles/volume) | + + + + + +-------+ + + | Serum or | 2022-05-08 | [facility] | 4.1 | (missing) | (missing) | | plasma | 05:46 | [facility] | | | | potassium | | [facility] | | | | | measurement | | | | | | | (moles/volum | | | | | | | e) | | | | | | + + + +-------+ + + + + | Serum or plasma protein measurement (mass/volume) | + + + + + +-------+ + + | Serum or | 2022-06-08 | [facility] | 7.2 | (missing) | (missing) | | plasma | 09:36 | [facility] | | | | protein | | [facility] | | | | | measurement | | | | | | | (mass/volume | | | | | | | ) | | | | | | + + + +-------+ + + + + | Serum or plasma protein measurement (mass/volume) | + + + + + +-------+ + + | Serum or | 2022-05-17 | [facility] | 7.8 | (missing) | (missing) | | plasma | 09:50 | [facility] | | | | protein | | [facility] | | | | | measurement | | | | | | | (mass/volume | | | | | | | ) | | | | | | + + + +-------+ + + + + | Serum or plasma sodium measurement (moles/volume) | + + + + + +-------+ + + | Serum or | 2022-06-08 | [facility] | 138 | (missing) | (missing) | | plasma | 09:36 | [facility] | | | | sodium | | [facility] | | | | | measurement | | | | | | | (moles/volum | | | | | | | e) | | | | | | + + + +-------+ + + + + | Serum or plasma sodium measurement (moles/volume) | + + + + + +-------+ + + | Serum or | 2022-05-17 | [facility] | 137 | (missing) | (missing) | | plasma | 09:50 | [facility] | | | | sodium | | [facility] | | | | | measurement | | | | | | | (moles/volum | | | | | | | e) | | | | | | + + + +-------+ + + + + | Serum or plasma sodium measurement (moles/volume) | + + + + + +-------+ + + | Serum or | 2022-05-08 | [facility] | 134 | (missing) | (missing) | | plasma | 05:46 | [facility] | | | | sodium | | [facility] | | | | | measurement | | | | | | | (moles/volum | | | | | | | e) | | | | | | + + + +-------+ + + + + | Serum or plasma urea nitrogen measurement (mass/volume) | + + + + + +------+ + + | Serum or | 2022-06-08 | [facility] | 19 | (missing) | (missing) | | plasma urea | 09:36 | [facility] | | | | nitrogen | | [facility] | | | | | measurement | | | | | | | (mass/volume | | | | | | | ) | | | | | | + + + +------+ + + + + | Serum or plasma urea nitrogen measurement (mass/volume) | + + + + + +------+ + + | Serum or | 2022-05-08 | [facility] | 25 | (missing) | (missing) | | plasma urea | 05:46 | [facility] | | | | nitrogen | | [facility] | | | | | measurement | | | | | | | (mass/volume | | | | | | | ) | | | | | | + + + +------+ + + + + | Serum or plasma urea nitrogen measurement (mass/volume) | + + + + + +------+ + + | Serum or | 2022-05-17 | [facility] | 37 | (missing) | (missing) | | plasma urea | 09:50 | [facility] | | | | nitrogen | | [facility] | | | | | measurement | | | | | | | (mass/volume | | | | | | | ) | | | | | | + + + +------+ + + + + | Serum or plasma urea nitrogen/creatinine mass ratio | + + + + + +---------+ + + | Serum or | 2022-06-08 | [facility] | 14.84 | (missing) | (missing) | | plasma urea | 09:36 | [facility] | | | | | nitrogen/cre | | Hospital | | | | | atinine mass | | | | | | | ratio | | | | | | + + + +---------+ + + + + | Serum or plasma urea nitrogen/creatinine mass ratio | + + + + + +---------+ + + | Serum or | 2022-05-17 | [facility] | 17.12 | (missing) | (missing) | | plasma urea | 09:50 | [facility] | | | | | nitrogen/cre | | Hospital | | | | | atinine mass | | | | | | | ratio | | | | | | + + + +---------+ + + + + | Serum or plasma urea nitrogen/creatinine mass ratio | + + + + + +---------+ + + | Serum or | 2022-05-08 | [facility] | 13.36 | (missing) | (missing) | | plasma urea | 05:46 | [facility] | | | | | nitrogen/cre | | Hospital | | | | | atinine mass | | | | | | | ratio | | | | | | + + + +---------+ + + + + | Automated blood monocyte count as percentage of total leukocytes | + + + + + +-------+ + + | Automated | 2022-06-08 | [facility] | 8.6 | (missing) | (missing) | | blood | 09:36 | [facility] | | | | monocyte | | [facility] | | | | | count as | | | | | | | percentage | | | | | | | of total | | | | | | | leukocytes | | | | | | + + + +-------+ + + + + | Automated blood monocyte count as percentage of total leukocytes | + + + + + +-------+ + + | Automated | 2022-05-17 | [facility] | 7.2 | (missing) | (missing) | | blood | 09:50 | [facility] | | | | monocyte | | Hospital | | | | | count as | | | | | | | percentage | | | | | | | of total | | | | | | | leukocytes | | | | | | + + + +-------+ + + + + | Respiratory syncytial virus (RSV) RNA detection by probe and target amplification | | method in culture isolate | + + + + + + + + + | Respiratory | 2022-05-17 | [facility] | NEGATIVE | (missing) | (missing) | | syncytial | 10:00 | [facility] | | | | | virus (RSV) | | Hospital | | | | | RNA | | | | | | | detection by | | | | | | | probe and | | | | | | | target | | | | | | | amplificatio | | | | | | | n method in | | | | | | | culture | | | | | | | isolate | | | | | | + + + + + + + + + | Blood leukocytes automated count (number/volume) | + + + + + +-------+ + + | Blood | 2022-06-08 | [facility] | 6.3 | (missing) | (missing) | | leukocytes | 09:36 | [facility] | | | | automated | | [facility] | | | | | count | | | | | | | (number/volu | | | | | | | me) | | | | | | + + + +-------+ + + + + | Blood leukocytes automated count (number/volume) | + + + + + +-------+ + + | Blood | 2022-05-17 | [facility] | 8.9 | (missing) | (missing) | | leukocytes | 09:50 | [facility] | | | | automated | | [facility] | | | | | count | | | | | | | (number/volu | | | | | | | me) | | | | | | + + + +-------+ + + + + | Serum or plasma alkaline phosphatase measurement (enzymatic activity/volume) | + + + + + +------+ + + | Serum or | 2022-06-08 | [facility] | 55 | (missing) | (missing) | | plasma | 09:36 | [facility] | | | | | alkaline | | [facility] | | | | | phosphatase | | | | | | | measurement | | | | | | | (enzymatic | | | | | | | activity/vol | | | | | | | ume) | | | | | | + + + +------+ + + + + | Serum or plasma alkaline phosphatase measurement (enzymatic activity/volume) | + + + + + +------+ + + | Serum or | 2022-05-17 | [facility] | 57 | (missing) | (missing) | | plasma | 09:50 | [facility] | | | | alkaline | | [facility] | | | | | phosphatase | | | | | | | measurement | | | | | | | (enzymatic | | | | | | | activity/vol | | | | | | | ume) | | | | | | + + + +------+ + + + + | Automated blood basophil count as percentage of total leukocytes | + + + + + +-------+ + + | Automated | 2022-06-08 | [facility] | 0.5 | (missing) | (missing) | | blood | 09:36 | [facility] | | | | | basophil | | [facility] | | | | | count as | | | | | | | percentage | | | | | | | of total | | | | | | | leukocytes | | | | | | + + + +-------+ + + + + | Automated blood basophil count as percentage of total leukocytes | + + + + + +-------+ + + | Automated | 2022-05-17 | [facility] | 0.6 | (missing) | (missing) | | blood | 09:50 | [facility] | | | | | basophil | | [facility] | | | | | count as | | | | | | | percentage | | | | | | | of total | | | | | | | leukocytes | | | | | | + + + +-------+ + + + + | Automated blood eosinophil count as percentage of total leukocytes | + + + + + +-------+ + + | Automated | 2022-06-08 | [facility] | 1.4 | (missing) | (missing) | | blood | 09:36 | [facility] | | | | | eosinophil | | [facility] | | | | | count as | | | | | | | percentage | | | | | | | of total | | | | | | | leukocytes | | | | | | + + + +-------+ + + + + | Automated blood eosinophil count as percentage of total leukocytes | + + + + + +-------+ + + | Automated | 2022-05-17 | [facility] | 1.4 | (missing) | (missing) | | blood | 09:50 | [facility] | | | | | eosinophil | | Hospital | | | | | count as | | | | | | | percentage | | | | | | | of total | | | | | | | leukocytes | | | | | | + + + +-------+ + + + + | Blood hemoglobin measurement (mass/volume) | + + + + + +--------+ + + | Blood | 2022-06-08 | [facility] | 10.0 | (missing) | (missing) | | hemoglobin | 09:36 | [facility] | | | measurement | | [facility] | | | | | (mass/volume | | | | | | | ) | | | | | | + + + +--------+ + + + + | Blood hemoglobin measurement (mass/volume) | + + + + + +--------+ + + | Blood | 2022-05-17 | [facility] | 11.7 | (missing) | (missing) | | hemoglobin | 09:50 | [facility] | | | | measurement | | [facility] | | | | | (mass/volume | | | | | | | ) | | | | | | + + + +--------+ + + + + | Automated blood hematocrit | + + + + + +--------+ + + | Automated | 2022-06-08 | [facility] | 28.6 | (missing) | (missing) | | blood | 09:36 | [facility] | | | | hematocrit | | [facility] | | | | + + + +--------+ + + + + | Automated blood hematocrit | + + + + + +--------+ + + | Automated | 2022-05-17 | [facility] | 34.8 | (missing) | (missing) | | blood | 09:50 | [facility] | | | | hematocrit | | [facility] | | | | + + + +--------+ + + + + | Automated blood lymphocyte count as percentage ot total leukocytes | + + + + + +--------+ + + | Automated | 2022-06-08 | [facility] | 25.9 | (missing) | (missing) | | blood | 09:36 | [facility] | | | | lymphocyte | | Hospital | | | | | count as | | | | | | | percentage | | | | | | | ot total | | | | | | | leukocytes | | | | | | + + + +--------+ + + + + | Automated blood lymphocyte count as percentage ot total leukocytes | + + + + + +--------+ + + | Automated | 2022-05-17 | [facility] | 19.0 | (missing) | (missing) | | blood | 09:50 | [facility] | | | | lymphocyte | | Hospital | | | | | count as | | | | | | | percentage | | | | | | | ot total | | | | | | | leukocytes | | | | | | + + + +--------+ + + + + | Automated blood neutrophil count as percentage of total leukocytes | + + + + + +--------+ + + | Automated | 2022-06-08 | [facility] | 63.6 | (missing) | (missing) | | blood | 09:36 | [facility] | | | | neutrophil | | Hospital | | | | | count as | | | | | | | percentage | | | | | | | of total | | | | | | | leukocytes | | | | | | + + + +--------+ + + + + | Automated blood neutrophil count as percentage of total leukocytes | + + + + + +--------+ + + | Automated | 2022-05-17 | [facility] | 71.8 | (missing) | (missing) | | blood | 09:50 | [facility] | | | | neutrophil | | [facility] | | | | | count as | | | | | | | percentage | | | | | | | of total | | | | | | | leukocytes | | | | | | + + + +--------+ + + + + | Automated blood platelet count (count/volume) | + + + + + +-------+ + + | Automated | 2022-05-17 | [facility] | 389 | (missing) | (missing) | | blood | 09:50 | [facility] | | | | platelet | | [facility] | | | | | count | | | | | | | (count/volum | | | | | | | e) | | | | | | + + + +-------+ + + + + | Automated blood platelet count (count/volume) | + + + + + +-------+ + + | Automated | 2022-06-08 | [facility] | 426 | (missing) | (missing) | | blood | 09:36 | [facility] | | | | platelet | | [facility] | | | | | count | | | | | | | (count/volum | | | | | | | e) | | | | | | + + + +-------+ + + + + | Automated erythrocyte mean corpuscular hemoglobin (mass per erythrocyte) | + + + + + +--------+ + + | Automated | 2022-05-17 | [facility] | 34.4 | (missing) | (missing) | | erythrocyte | 09:50 | [facility] | | | | | mean | | [facility] | | | | | corpuscular | | | | | | | hemoglobin | | | | | | | (mass per | | | | | | | erythrocyte) | | | | | | | | | | | | | + + + +--------+ + + + + | Automated erythrocyte mean corpuscular hemoglobin (mass per erythrocyte) | + + + + + +--------+ + + | Automated | 2022-06-08 | [facility] | 35.3 | (missing) | (missing) | | erythrocyte | 09:36 | [facility] | [facility] | | | | | corpuscular | | | | | | | hemoglobin | | | | | | | (mass per | | | | | | | erythrocyte) | | | | | | | | | | | | | + + + +--------+ + + + + | Automated erythrocyte mean corpuscular hemoglobin concentration measurement | | (mass/volume) | + + + + + +--------+ + + | Automated | 2022-05-17 | [facility] | 33.7 | (missing) | (missing) | | erythrocyte | 09:50 | [facility] | | | | | corpuscular | | | | | | | hemoglobin | | | | | | | concentratio | | | | | | | n | | | | | | | measurement | | | | | | | (mass/volume | | | | | | | ) | | | | | | + + + +--------+ + + + + | Automated erythrocyte mean corpuscular hemoglobin concentration measurement | | (mass/volume) | + + + + + +--------+ + + | Automated | 2022-06-08 | [facility] | 35.1 | (missing) | (missing) | | erythrocyte | 09:36 | [facility] | | | | | corpuscular | | | | | | | hemoglobin | | | | | | | concentratio | | | | | | | n | | | | | | | measurement | | | | | | | (mass/volume | | | | | | | ) | | | | | | + + + +--------+ + + + + | Automated erythrocyte mean corpuscular volume | + + + + + +---------+ + + | Automated | 2022-06-08 | [facility] | 100.6 | (missing) | (missing) | | erythrocyte | 09:36 | [facility] | | | | | corpuscular | | | | | | | volume | | | | | | + + + +---------+ + + + + | Automated erythrocyte mean corpuscular volume | + + + + + +---------+ + + | Automated | 2022-05-17 | [facility] | 102.2 | (missing) | (missing) | | erythrocyte | 09:50 | [facility] | | | | | corpuscular | | | | | | | volume | | | | | | + + + +---------+ + + + + | Blood erythrocytes automated count (number/volume) | + + + + + +--------+ + + | Blood | 2022-06-08 | [facility] | 2.84 | (missing) | (missing) | | erythrocytes | 09:36 | [facility] | | | | | count | | | | | | | (number/volu | | | | | | | me) | | | | | | + + + +--------+ + + + + | Blood erythrocytes automated count (number/volume) | + + + + + +--------+ + + | Blood | 2022-05-17 | [facility] | 3.40 | (missing) | (missing) | | erythrocytes | 09:50 | [facility] automated [facility] | | | | | count | | | | | | | (number/volu | | | | | | | me) | | | | | | + + + +--------+ + + + + | Influenza virus B RNA [Presence] in Respiratory specimen by TITUS withprobe detection | + + + + + + + + + | Influenza | 2022-05-17 | [facility] | NEGATIVE | (missing) | (missing) | | virus B RNA | 10:00 | [facility] | | | | [Presence] | | [facility] | | | | | in | | | | | | | Respiratory | | | | | | | specimen by | | | | | | | TITUS | | | | | | | withprobe | | | | | | | detection | | | | | | + + + + + + + + + | Influenza virus A RNA [Presence] in Respiratory specimen by TITUS withprobe detection | + + + + + + + + + | Influenza | 2022-05-17 | [facility] | NEGATIVE | (missing) | (missing) | | virus A RNA | 10:00 | [facility] | [facility] | [[facility]] | | [facility] | | | | | in | | | | | | | Respiratory | | | | | | | specimen by | | | | | | | TITUS | | | | | | | withprobe | | | | | | | detection | | | | | | + + + + + + + + + | Respiratory specimen 2019 novel coronavirus RNA detection | + + + + + + + + + | Respiratory | 2022-05-17 | [facility] | NEGATIVE | (missing) | (missing) | | specimen | 10:00 | [facility] | | | | 2018 novel | | [facility] | | | | | coronavirus | | | | | | | RNA | | | | | | | detection | | | | | | + + + + + + + + + | Glomerular filtration rate/1.73 sq M.predicted [Volume Rate/Area] inSerum, Plasma or | | Blood by Creatinine-based formula (CKD-EPI 2020) | + + + + + +------+ + + | Glomerular | 2022-06-08 | [facility] | 42 | (missing) | (missing) | | filtration | 09:36 | [facility] | | | | | rate/1.73 sq | | [facility] | | | | | M.predicted | | | | | | | [Volume | | | | | | | Rate/Area] | | | | | | | inSerum, | | | | | | | Plasma or | | | | | | | Blood by | | | | | | | Creatinine-b | | | | | | | ased formula | | | | | | | (CKD-EPI | | | | | | | 2020) | | | | | | + + + +------+ + + + + | Glomerular filtration rate/1.73 sq M.predicted [Volume Rate/Area] inSerum, Plasma or | | Blood by Creatinine-based formula (CKD-EPI 2020) | + + + + + +------+ + + | Glomerular | 2022-05-17 | [facility] | 22 | (missing) | (missing) | | filtration | 09:50 | [facility] | | | | | rate/1.73 sq | | [facility] | | | | | M.predicted | | | | | | | [Volume | | | | | | | Rate/Area] | | | | | | | inSerum, | | | | | | | Plasma or | | | | | | | Blood by | | | | | | | Creatinine-b | | | | | | | ased formula | | | | | | | (CKD-EPI | | | | | | | 2020) | | | | | | + + + +------+ + + + + | Glomerular filtration rate/1.73 sq M.predicted [Volume Rate/Area] inSerum, Plasma or | | Blood by Creatinine-based formula (CKD-EPI 2020) | + + + + + +------+ + + | Glomerular | 2022-05-08 | [facility] | 27 | (missing) | (missing) | | filtration | 05:46 | [facility] | | | | | rate/1.73 sq | | [facility] | | | | | M.predicted | | | | | | | [Volume | | | | | | | Rate/Area] | | | | | | | inSerum, | | | | | | | Plasma or | | | | | | | Blood by | | | | | | | Creatinine-b | | | | | | | ased formula | | | | | | | (CKD-EPI | | | | | | | 2020) | | | | | | + + + +------+ + + Social History + + + + | date | description | facility | + + + + | 2022-05-08 00:00 | Former smoker | [facility] | + + + + | 2022-05-17 00:00 | Former smoker | [facility] | + + + + | 2022-06-08 00:00 | Former smoker | [facility] | + + + + | 2022-08-03 00:00 | Former smoker | [facility] | + + + + | 2022-08-04 00:00 | Former smoker | [facility] | + + + + Vital Signs + + + +---------+ | date | measurement | value | units | + + + +---------+ | 2022-05-05 00:00 | BMI | 26.0 | kg/m2 | + + + +---------+ | 2022-05-05 00:00 | BP_diastolic | 43 | mmHg | + + + +---------+ | 2022-05-05 00:00 | BP_systolic | 93 | mmHg | + + + +---------+ | 2022-05-05 00:00 | heart_rate | 78 | /min | + + + +---------+ | 2022-05-05 00:00 | height_metric | 160.02 | cm | + + + +---------+ | 2022-05-05 00:00 | height_standard | 63 | in | + + + +---------+ | 2022-05-05 00:00 | o2_saturation | 100 | % | + + + +---------+ | 2022-05-05 00:00 | respiration_rate | 14 | /min | + + + +---------+ | 2022-05-05 00:00 | temperature_metric | 35.56 | C | | | | | | + + + +---------+ | 2022-05-05 00:00 | | 96 | F | | | temperature_standar | | | | | d | | | + + + +---------+ | 2022-05-05 00:00 | weight_metric | 66.6 | kg | + + + +---------+ | 2022-05-05 00:00 | weight_standard | 146.83 | lb | + + + +---------+ | 2022-05-08 00:00 | BP_diastolic | 81 | mmHg | + + + +---------+ | 2022-05-08 00:00 | BP_systolic | 106 | mmHg | + + + +---------+ | 2022-05-08 00:00 | heart_rate | 64 | /min | + + + +---------+ | 2022-05-08 00:00 | o2_saturation | 99 | % | + + + +---------+ | 2022-05-08 00:00 | respiration_rate | 16 | /min | + + + +---------+ | 2022-05-08 00:00 | temperature_metric | 36.44 | C | | | | | | + + + +---------+ | 2022-05-08 00:00 | | 97.6 | F | | | temperature_standar | | | | | d | | | + + + +---------+ | 2022-05-17 00:00 | BMI | 25.9 | kg/m2 | + + + +---------+ | 2022-05-17 00:00 | BP_diastolic | 61 | mmHg | + + + +---------+ | 2022-05-17 00:00 | BP_systolic | 109 | mmHg | + + + +---------+ | 2022-05-17 00:00 | heart_rate | 64 | /min | + + + +---------+ | 2022-05-17 00:00 | height_metric | 160.02 | cm | + + + +---------+ | 2022-05-17 00:00 | height_standard | 63 | in | + + + +---------+ | 2022-05-17 00:00 | o2_saturation | 99 | % | + + + +---------+ | 2022-05-17 00:00 | respiration_rate | 20 | /min | + + + +---------+ | 2022-05-17 00:00 | temperature_metric | 37 | C | | | | | | + + + +---------+ | 2022-05-17 00:00 | | 98.6 | F | | | temperature_standar | | | | | d | | | + + + +---------+ | 2022-05-17 00:00 | weight_metric | 66.22 | kg | + + + +---------+ | 2022-05-17 00:00 | weight_standard | 145.99 | lb | + + + +---------+ | 2022-05-17 00:00 | weight_standard | 146 | lb | + + + +---------+ | 2022-06-07 00:00 | BMI | 24.1 | kg/m2 | + + + +---------+ | 2022-06-07 00:00 | height_metric | 160.02 | cm | + + + +---------+ | 2022-06-07 00:00 | height_standard | 63 | in | + + + +---------+ | 2022-06-07 00:00 | weight_metric | 61.7 | kg | + + + +---------+ | 2022-06-07 00:00 | weight_standard | 136.03 | lb | + + + +---------+ | 2022-06-08 00:00 | BP_diastolic | 67 | mmHg | + + + +---------+ | 2022-06-08 00:00 | BP_systolic | 106 | mmHg | + + + +---------+ | 2022-06-08 00:00 | heart_rate | 69 | /min | + + + +---------+ | 2022-06-08 00:00 | o2_saturation | 100 | % | + + + +---------+ | 2022-06-08 00:00 | respiration_rate | 16 | /min | + + + +---------+ | 2022-06-08 00:00 | temperature_metric | 36.16 | C | | | | | | + + + +---------+ | 2022-06-08 00:00 | | 97.08 | F | | | temperature_standar | | | | | d | | | + + + +---------+ | 2022-08-03 00:00 | BMI | 24.1 | kg/m2 | + + + +---------+ | 2022-08-03 00:00 | BP_diastolic | 78 | mmHg | + + + +---------+ | 2022-08-03 00:00 | BP_systolic | 138 | mmHg | + + + +---------+ | 2022-08-03 00:00 | heart_rate | 95 | /min | + + + +---------+ | 2022-08-03 00:00 | height_metric | 160.02 | cm | + + + +---------+ | 2022-08-03 00:00 | height_standard | 63 | in | + + + +---------+ | 2022-08-03 00:00 | o2_saturation | 98 | % | + + + +---------+ | 2022-08-03 00:00 | respiration_rate | 16 | /min | + + + +---------+ | 2022-08-03 00:00 | temperature_metric | 37 | C | | | | | | + + + +---------+ | 2022-08-03 00:00 | | 98.6 | F | | | temperature_standar | | | | | d | | | + + + +---------+ | 2022-08-03 00:00 | weight_metric | 61.69 | kg | + + + +---------+ | 2022-08-03 00:00 | weight_standard | 136 | lb | + + + +---------+ | 2022-08-04 00:00 | BMI | 24.1 | kg/m2 | + + + +---------+ | 2022-08-04 00:00 | BP_diastolic | 89 | mmHg | + + + +---------+ | 2022-08-04 00:00 | BP_systolic | 142 | mmHg | + + + +---------+ | 2022-08-04 00:00 | heart_rate | 88 | /min | + + + +---------+ | 2022-08-04 00:00 | height_metric | 160.02 | cm | + + + +---------+ | 2022-08-04 00:00 | height_standard | 63 | in | + + + +---------+ | 2022-08-04 00:00 | o2_saturation | 99 | % | + + + +---------+ | 2022-08-04 00:00 | respiration_rate | 16 | /min | + + + +---------+ | 2022-08-04 00:00 | temperature_metric | 36.67 | C | | | | | | + + + +---------+ | 2022-08-04 00:00 | | 98 | F | | | temperature_standar | | | | | d | | | + + + +---------+ | 2022-08-04 00:00 | weight_metric | 61.69 | kg | + + + +---------+ | 2022-08-04 00:00 | weight_standard | 136 | lb | + + + +---------+"
--- OUTSIDE RECORDS SUMMARY | ~2023-04-28 | XMS | Continuity of Care Document ---
Demographics + + + | Address | [address] | | | [place] [address] | + + + | Preferred Language | Unknown | + + + | Marital Status | | + + + | Latter-Day Affiliation | Unknown | + + + | Race | White | + + + | Ethnic Group | Not or | + + + Author + + + | Author | [facility] | + + + | Organization | [facility] | + + + | Address | [address] | | | [place] [address] | + + + | Phone | | + + + Care Team Providers + + + + | Care Exercise Teacher Name | Role | Phone | + [...] | No vaccine administered | [facility] | + + + + | 2022-05-17 00:00 | No vaccine administered | [facility] | + + + + | 2022-06-08 00:00 | No vaccine administered | [facility] | + + + + | 2022-08-03 00:00 | No vaccine administered | [facility] | + + + + | 2022-08-04 00:00 | No vaccine administered | [facility] | + + + + Medications + + + + | date | description | facility | + + + + | 2022-05-08 00:00 | APIXABAN | [facility] | + + + + | 2022-05-08 00:00 | APIXABAN | [facility] | + + + + | 2022-05-08 00:00 | apixaban 2.5 MG Oral | [facility] | | | Tablet [Eliquis] | | + + + + | 2022-05-09 00:00 | APIXABAN | [facility] | + + + + | 2022-05-19 00:00 | APIXABAN | [facility] | + + + + | 2022-06-09 00:00 | APIXABAN | [facility] | + + + + | 2022-08-03 00:00 | APIXABAN | [facility] | + + + + | 2022-08-04 00:00 | APIXABAN | [facility] | + + + + | 2022-05-08 00:00 | apixaban 5 MG Oral Tablet | [facility] | | | [Eliquis] | | + + + + | 2022-05-17 00:00 | apixaban 5 MG Oral Tablet | [facility] | | | [Eliquis] | | + + + + | 2022-06-08 00:00 | apixaban 5 MG Oral Tablet | [facility] | | | [Eliquis] | | + + + + | 2022-08-03 00:00 | apixaban 5 MG Oral Tablet | [facility] | | | [Eliquis] | | + + + + | 2022-08-04 00:00 | apixaban 5 MG Oral Tablet | [facility] | | | [Eliquis] | | + + + + | 2022-05-08 00:00 | LIDOCAINE | [facility] | + + + + | 2022-05-08 00:00 | LIDOCAINE | [facility] | + + + + | 2022-05-08 00:00 | Lidocaine 50 MG/ML Rectal | [facility] | | | Cream | | + + + + | 2022-05-08 00:00 | CARVEDILOL | [facility] | + + + + | 2022-05-08 00:00 | carvedilol 6.25 MG Oral | [facility] | | | Tablet | | + + + + | 2022-05-09 00:00 | UBIDECARENONE | [facility] | + + + + | 2022-05-19 00:00 | UBIDECARENONE | [facility] | + + + + | 2022-06-09 00:00 | UBIDECARENONE | [facility] | + + + + | 2022-08-03 00:00 | UBIDECARENONE | [facility] | + + + + | 2022-08-04 00:00 | UBIDECARENONE | [facility] | + + + + | 2022-05-08 00:00 | ubidecarenone 100 MG Oral | [facility] | | | Capsule | | + + + + | 2022-05-17 00:00 | ubidecarenone 100 MG Oral | [facility] | | | Capsule | | + + + + | 2022-06-08 00:00 | ubidecarenone 100 MG Oral | [facility] | | | Capsule | | + + + + | 2022-08-03 00:00 | ubidecarenone 100 MG Oral | [facility] | | | Capsule | | + + + + | 2022-08-04 00:00 | ubidecarenone 100 MG Oral | [facility] | | | Capsule | | + + + + | 2022-05-09 00:00 | CYANOCOBALAMIN (VITAMIN | [facility] | | | B-12) | | + + + + | 2022-05-19 00:00 | CYANOCOBALAMIN (VITAMIN | [facility] | | | B-12) | | + + + + | 2022-06-09 00:00 | CYANOCOBALAMIN (VITAMIN | [facility] | | | B-12) | | + + + + | 2022-08-03 00:00 | CYANOCOBALAMIN (VITAMIN | [facility] | | | B-12) | | + + + + | 2022-08-04 00:00 | CYANOCOBALAMIN (VITAMIN | [facility] | | | B-12) | | + + + + | 2022-05-08 00:00 | vitamin B12 1 MG Oral | [facility] | | | Tablet | | + + + + | 2022-05-17 00:00 | vitamin B12 1 MG Oral | [facility] | | | Tablet | | + + + + | 2022-06-08 00:00 | vitamin B12 1 MG Oral | [facility] | | | Tablet | | + + + + | 2022-08-03 00:00 | vitamin B12 1 MG Oral | [facility] | | | Tablet | | + + + + | 2022-08-04 00:00 | vitamin B12 1 MG Oral | [facility] | | | Tablet | | + + + + | 2022-05-08 00:00 | GABAPENTIN | [facility] | + + + + | 2022-05-08 00:00 | gabapentin 100 MG Oral | [facility] | | | Capsule | | + + + + | 2022-05-09 00:00 | MIRTAZAPINE | [facility] | + + + + | 2022-05-19 00:00 | MIRTAZAPINE | [facility] | + + + + | 2022-06-09 00:00 | MIRTAZAPINE | [facility] | + + + + | 2022-08-03 00:00 | MIRTAZAPINE | [facility] | + + + + | 2022-08-04 00:00 | MIRTAZAPINE | [facility] | + + + + | 2022-05-08 00:00 | mirtazapine 15 MG Oral | [facility] | | | Tablet | | + + + + | 2022-05-17 00:00 | mirtazapine 15 MG Oral | [facility] | | | Tablet | | + + + + | 2022-06-08 00:00 | mirtazapine 15 MG Oral | [facility] | | | Tablet | | + + + + | 2022-08-03 00:00 | mirtazapine 15 MG Oral | [facility] | | | Tablet | | + + + + | 2022-08-04 00:00 | mirtazapine 15 MG Oral | [facility] | | | Tablet | | + + + + | 2022-05-09 00:00 | LISINOPRIL | [facility] | + + + + | 2022-05-19 00:00 | LISINOPRIL | [facility] | + + + + | 2022-06-09 00:00 | LISINOPRIL | [facility] | + + + + | 2022-08-03 00:00 | LISINOPRIL | [facility] | + + + + | 2022-08-04 00:00 | LISINOPRIL | [facility] | + + + + | 2022-05-08 00:00 | lisinopril 20 MG Oral | [facility] | | | Tablet | | + + + + | 2022-05-17 00:00 | lisinopril 20 MG Oral | [facility] | | | Tablet | | + + + + | 2022-06-08 00:00 | lisinopril 20 MG Oral | [facility] | | | Tablet | | + + + + | 2022-08-03 00:00 | lisinopril 20 MG Oral | [facility] | | | Tablet | | + + + + | 2022-08-04 00:00 | lisinopril 20 MG Oral | [facility] | | | Tablet | | + + + + | 2022-05-09 00:00 | PYRIDOXINE HCL | [facility] | + + + + | 2022-05-19 00:00 | PYRIDOXINE HCL | [facility] | + + + + | 2022-06-09 00:00 | PYRIDOXINE HCL | [facility] | + + + + | 2022-08-03 00:00 | PYRIDOXINE HCL | [facility] | + + + + | 2022-08-04 00:00 | PYRIDOXINE HCL | [facility] | + + + + | 2022-05-08 00:00 | vitamin B6 50 MG Oral | [facility] | | | Tablet | | + + + + | 2022-05-17 00:00 | vitamin B6 50 MG Oral | [facility] | | | Tablet | | + + + + | 2022-06-08 00:00 | vitamin B6 50 MG Oral | [facility] | | | Tablet | | + + + + | 2022-08-03 00:00 | vitamin B6 50 MG Oral | [facility] | | | Tablet | | + + + + | 2022-08-04 00:00 | vitamin B6 50 MG Oral | [facility] | | | Tablet | | + + + + | 2022-05-09 00:00 | Cholecalciferol (Vitamin | [facility] | | | D3) | | + + + + | 2022-05-19 00:00 | Cholecalciferol (Vitamin | [facility] | | | D3) | | + + + + | 2022-06-09 00:00 | Cholecalciferol (Vitamin | [facility] | | | D3) | | + + + + | 2022-08-03 00:00 | Cholecalciferol (Vitamin | [facility] | | | D3) | | + + + + | 2022-08-04 00:00 | Cholecalciferol (Vitamin | [facility] | | | D3) | | + + + + | 2022-05-08 00:00 | cholecalciferol 0.05 MG | [facility] | | | Oral Tablet | | + + + + | 2022-05-17 00:00 | cholecalciferol 0.05 MG | [facility] | | | Oral Tablet | | + + + + | 2022-06-08 00:00 | cholecalciferol 0.05 MG | [facility] | | | Oral Tablet | | + + + + | 2022-08-03 00:00 | cholecalciferol 0.05 MG | [facility] | | | Oral Tablet | | + + + + | 2022-08-04 00:00 | cholecalciferol 0.05 MG | [facility] | | | Oral Tablet | | + + + + | 2022-05-08 00:00 | 24 HR diltiazem | [facility] | | | hydrochloride 240 MG | | | | Extended Release Oral C | | + + + + | 2022-05-17 00:00 | 24 HR diltiazem | [facility] | | | hydrochloride 240 MG | | | | Extended Release Oral C | | + + + + | 2022-05-09 00:00 | DILTIAZEM HCL | [facility] | + + + + | 2022-05-19 00:00 | DILTIAZEM HCL | [facility] | + + + + | 2022-05-17 00:00 | 24 HR diltiazem | [facility] | | | hydrochloride 180 MG | | | | Extended Release Oral C | | + + + + | 2022-06-08 00:00 | 24 HR diltiazem | [facility] | | | hydrochloride 180 MG | | | | Extended Release Oral C | | + + + + | 2022-08-03 00:00 | 24 HR diltiazem | [facility] | | | hydrochloride 180 MG | | | | Extended Release Oral C | | + + + + | 2022-08-04 00:00 | 24 HR diltiazem | [facility] | | | hydrochloride 180 MG | | | | Extended Release Oral C | | + + + + | 2022-05-17 00:00 | DILTIAZEM HCL | [facility] | + + + + | 2022-06-09 00:00 | DILTIAZEM HCL | [facility] | + + + + | 2022-08-03 00:00 | DILTIAZEM HCL | [facility] | + + + + | 2022-08-04 00:00 | DILTIAZEM HCL | [facility] | + + + + | 2022-05-17 00:00 | 24 HR diltiazem | [facility] | | | hydrochloride 180 MG | | | | Extended Release Oral C | | + + + + | 2022-05-17 00:00 | DILTIAZEM HCL | [facility] | + + + + | 2022-05-09 00:00 | LEVOTHYROXINE SODIUM | [facility] | + + + + | 2022-05-19 00:00 | LEVOTHYROXINE SODIUM | [facility] | + + + + | 2022-06-09 00:00 | LEVOTHYROXINE SODIUM | [facility] | + + + + | 2022-08-03 00:00 | LEVOTHYROXINE SODIUM | [facility] | + + + + | 2022-08-04 00:00 | LEVOTHYROXINE SODIUM | [facility] | + + + + | 2022-05-08 00:00 | levothyroxine sodium 0.112 | [facility] | | | MG Oral Tablet | | + + + + | 2022-05-17 00:00 | levothyroxine sodium 0.112 | [facility] | | | MG Oral Tablet | | + + + + | 2022-06-08 00:00 | levothyroxine sodium 0.112 | [facility] | | | MG Oral Tablet | | + + + + | 2022-08-03 00:00 | levothyroxine sodium 0.112 | [facility] | | | MG Oral Tablet | | + + + + | 2022-08-04 00:00 | levothyroxine sodium 0.112 | [facility] | | | MG Oral Tablet | | + + + + | 2022-05-09 00:00 | MEMANTINE HCL | [facility] | + + + + | 2022-05-19 00:00 | MEMANTINE HCL | [facility] | + + + + | 2022-06-09 00:00 | MEMANTINE HCL | [facility] | + + + + | 2022-08-03 00:00 | MEMANTINE HCL | [facility] | + + + + | 2022-08-04 00:00 | MEMANTINE HCL | [facility] | + + + + | 2022-05-08 00:00 | memantine hydrochloride 10 | [facility] | | | MG Oral Tablet | | + + + + | 2022-05-17 00:00 | memantine hydrochloride 10 | [facility] | | | MG Oral Tablet | | + + + + | 2022-06-08 00:00 | memantine hydrochloride 10 | [facility] | | | MG Oral Tablet | | + + + + | 2022-08-03 00:00 | memantine hydrochloride 10 | [facility] | | | MG Oral Tablet | | + + + + | 2022-08-04 00:00 | memantine hydrochloride 10 | [facility] | | | MG Oral Tablet | | + + + + | 2022-05-08 00:00 | MEMANTINE HCL | [facility] | + + + + | 2022-05-08 00:00 | MEMANTINE HCL | [facility] | + + + + | 2022-05-08 00:00 | memantine hydrochloride 5 | [facility] | | | MG Oral Tablet | | + + + + Problems + + + + | date | description | facility | + + + + | 2017-07-19 00:00 | Hypokalemia | [facility] | + + + + | 2017-07-19 00:00 | Hypokalemia | [facility] | + + + + | 2017-07-19 00:00 | Chronic orthostatic | [facility] | | | hypotension | | + + + + | 2017-07-19 00:00 | Chronic orthostatic | [facility] | | | hypotension | | + + + + | 2017-07-19 00:00 | Hypotension | [facility] | + + + + | 2017-07-19 00:00 | Hypotension | [facility] | + + + + | 2017-07-19 00:00 | Syncope | [facility] | + + + + | 2017-07-19 00:00 | Syncope | [facility] | + + + + | 2022-05-05 00:00 | RYAN (acute kidney injury) | [facility] | + + + + | 2022-05-05 00:00 | Shingles | [facility] | + + + + | 2022-05-05 00:00 | Herpes zoster | [facility] | + + + + | 2022-05-05 00:00 | Herpes zoster | [facility] | + + + + | 2022-05-05 00:00 | Acute kidney injury | [facility] | + + + + | 2022-05-05 00:00 | Acute kidney injury | [facility] | + + + + | 2022-05-17 00:00 | Bradycardia, drug induced | [facility] | + + + + | 2022-05-17 00:00 | Near syncope | [facility] | + + + + | 2022-05-17 00:00 | Drug-induced bradycardia | [facility] | + + + + | 2022-05-17 00:00 | Drug-induced bradycardia | [facility] | + + + + | 2022-05-17 00:00 | Pre-syncope | [facility] | + + + + | 2022-05-17 00:00 | Pre-syncope | [facility] | + + + + | 2022-06-07 00:00 | Anemia | [facility] | + + + + | 2022-06-07 00:00 | Anemia | [facility] | + + + + | 2022-06-07 00:00 | Alzheimer's dementia | [facility] | + + + + | 2022-06-07 00:00 | Alzheimer's dementia | [facility] | + + + + | 2022-06-07 00:00 | Atrial fibrillation | [facility] | + + + + | 2022-06-07 00:00 | Atrial fibrillation | [facility] | + + + + | 2022-08-03 00:00 | Epistaxis | [facility] | + + + + Procedures + + + + | date | description | facility | + + + + | 2022-05-05 00:00 | DRAINAGE OF BLADDER WITH | [facility] | | | DRAINAGE DEVICE, VIA | | | | OPENING | | + + + + | 2022-05-05 00:00 | DRAINAGE OF BLADDER WITH | [facility] | | | DRAINAGE DEVICE, VIA | | | | OPENING | | + + + + | 2022-06-08 00:00 | Esophagogastroduodenoscopy | [facility] | | | (EGD) with closed biopsy | | + + + + | 2022-06-08 00:00 | Esophagogastroduodenoscopy | [facility] | | | (EGD) with closed biopsy | | + + + + | 2022-06-08 00:00 | Esophagogastroduodenoscopy | [facility] | | | (EGD) with closed biopsy | | + + + + Results/Labs +--------+--------+ +---------+--------+---------+ | test | date | facility | value | unit | notes | +--------+--------+ +---------+--------+---------+ + + | Result panel 1 | + + + + + +-------+ + + | Whole blood | 2022-05-05 | [facility] | 107 | (missing) | (missing) | | glucose | 13:37 | [place] | | | | | measurement | [...] (missing) | | (unavailable | 14:26 | [place] | | | | | ) | [...] NEGATIVE | (missing) | (missing) | | [id number] | 16:53 | [place] | | | [...] (missing) | | urine | 16:53 | [place] | | | | | sediment | [...] NEGATIVE | (missing) | (missing) | | [id number] | 16:53 | [facility] | | | [...] NEGATIVE | (missing) | (missing) | | [id number] | 16:53 | [place] | | | [...] (missing) | | (unavailable | 09:50 | [place] | | | | | ) | [...] | 2022-05-08 00:00 | Former smoker | [facility] | + + + + | 2022-05-17 00:00 | Former smoker | [facility] | + + + + | 2022-06-08 00:00 | Former smoker | [facility] | + + + + | 2022-08-03 00:00 | Former smoker | [facility] | + + + + | 2022-08-04 00:00 | Former smoker | [facility] | + + + + Vital [...]
--- OUTSIDE RECORDS SUMMARY | ~2023-04-28 | XMS | Continuity of Care Document ---
Demographics + + + | Address | [address] | | | [place] [address] | + + + | Preferred Language | Unknown | + + + | Marital Status | | + + + | Taoism Affiliation | Unknown | + + + | Race | White | + + + | Ethnic Group | Not or | + + + Author + + + | Author | [place] | + + + | Organization | [place] | + + + | Address | [address] | | | [place] [address] | + + + | Phone | | + + + Care Team Providers + + + + | Care Allergist/Pediatric Pulmonologist Name | Role | Phone | + [...] + | (no date) | Penicillins | [facility] | (no reaction) | (no severity) | + + + + + + | (no date) | mushroom | [facility] | (no reaction) | (no severity) | + + + + + + [...] 2022-05-08 00:00 | No vaccine administered | [facility] | + + + + | 2022-05-17 00:00 | No vaccine administered | [facility] | + + + + | 2022-06-08 00:00 | No vaccine administered | [facility] | + + + + | 2022-08-03 00:00 | No vaccine administered | [facility] | + + + + | 2022-08-04 00:00 | No vaccine administered | [facility] | + + + + Medications + + + + | date | description | facility | + + + + | 2022-05-08 00:00 | APIXABAN | [facility] | + + + + | 2022-05-08 00:00 | APIXABAN | [facility] | + + + + | 2022-05-08 00:00 | apixaban 2.5 MG Oral | [facility] | | | Tablet [Eliquis] | | + + + + | 2022-05-09 00:00 | APIXABAN | [facility] | + + + + | 2022-05-19 00:00 | APIXABAN | [facility] | + + + + | 2022-06-09 00:00 | APIXABAN | [facility] | + + + + | 2022-08-03 00:00 | APIXABAN | [facility] | + + + + | 2022-08-04 00:00 | APIXABAN | [facility] | + + + + | 2022-05-08 00:00 | apixaban 5 MG Oral Tablet | [facility] | | | [Eliquis] | | + + + + | 2022-05-17 00:00 | apixaban 5 MG Oral Tablet | [facility] | | | [Eliquis] | | + + + + | 2022-06-08 00:00 | apixaban 5 MG Oral Tablet | [facility] | | | [Eliquis] | | + + + + | 2022-08-03 00:00 | apixaban 5 MG Oral Tablet | [facility] | | | [Eliquis] | | + + + + | 2022-08-04 00:00 | apixaban 5 MG Oral Tablet | [facility] | | | [Eliquis] | | + + + + | 2022-05-08 00:00 | LIDOCAINE | [facility] | + + + + | 2022-05-08 00:00 | LIDOCAINE | [facility] | + + + + | 2022-05-08 00:00 | Lidocaine 50 MG/ML Rectal | [facility] | | | Cream | | + + + + | 2022-05-08 00:00 | CARVEDILOL | [facility] | + + + + | 2022-05-08 00:00 | carvedilol 6.25 MG Oral | [facility] | | | Tablet | | + + + + | 2022-05-09 00:00 | UBIDECARENONE | [facility] | + + + + | 2022-05-19 00:00 | UBIDECARENONE | [facility] | + + + + | 2022-06-09 00:00 | UBIDECARENONE | [facility] | + + + + | 2022-08-03 00:00 | UBIDECARENONE | [facility] | + + + + | 2022-08-04 00:00 | UBIDECARENONE | [facility] | + + + + | 2022-05-08 00:00 | ubidecarenone 100 MG Oral | [facility] | | | Capsule | | + + + + | 2022-05-17 00:00 | ubidecarenone 100 MG Oral | [facility] | | | Capsule | | + + + + | 2022-06-08 00:00 | ubidecarenone 100 MG Oral | [facility] | | | Capsule | | + + + + | 2022-08-03 00:00 | ubidecarenone 100 MG Oral | [facility] | | | Capsule | | + + + + | 2022-08-04 00:00 | ubidecarenone 100 MG Oral | [facility] | | | Capsule | | + + + + | 2022-05-09 00:00 | CYANOCOBALAMIN (VITAMIN | [facility] | | | B-12) | | + + + + | 2022-05-19 00:00 | CYANOCOBALAMIN (VITAMIN | [facility] | | | B-12) | | + + + + | 2022-06-09 00:00 | CYANOCOBALAMIN (VITAMIN | [facility] | | | B-12) | | + + + + | 2022-08-03 00:00 | CYANOCOBALAMIN (VITAMIN | [facility] | | | B-12) | | + + + + | 2022-08-04 00:00 | CYANOCOBALAMIN (VITAMIN | [facility] | | | B-12) | | + + + + | 2022-05-08 00:00 | vitamin B12 1 MG Oral | [facility] | | | Tablet | | + + + + | 2022-05-17 00:00 | vitamin B12 1 MG Oral | [facility] | | | Tablet | | + + + + | 2022-06-08 00:00 | vitamin B12 1 MG Oral | [facility] | | | Tablet | | + + + + | 2022-08-03 00:00 | vitamin B12 1 MG Oral | [facility] | | | Tablet | | + + + + | 2022-08-04 00:00 | vitamin B12 1 MG Oral | [facility] | | | Tablet | | + + + + | 2022-05-08 00:00 | GABAPENTIN | [facility] | + + + + | 2022-05-08 00:00 | gabapentin 100 MG Oral | [facility] | | | Capsule | | + + + + | 2022-05-09 00:00 | MIRTAZAPINE | [facility] | + + + + | 2022-05-19 00:00 | MIRTAZAPINE | [facility] | + + + + | 2022-06-09 00:00 | MIRTAZAPINE | [facility] | + + + + | 2022-08-03 00:00 | MIRTAZAPINE | [facility] | + + + + | 2022-08-04 00:00 | MIRTAZAPINE | [facility] | + + + + | 2022-05-08 00:00 | mirtazapine 15 MG Oral | [facility] | | | Tablet | | + + + + | 2022-05-17 00:00 | mirtazapine 15 MG Oral | [facility] | | | Tablet | | + + + + | 2022-06-08 00:00 | mirtazapine 15 MG Oral | [facility] | | | Tablet | | + + + + | 2022-08-03 00:00 | mirtazapine 15 MG Oral | [facility] | | | Tablet | | + + + + | 2022-08-04 00:00 | mirtazapine 15 MG Oral | [facility] | | | Tablet | | + + + + | 2022-05-09 00:00 | LISINOPRIL | [facility] | + + + + | 2022-05-19 00:00 | LISINOPRIL | [facility] | + + + + | 2022-06-09 00:00 | LISINOPRIL | [facility] | + + + + | 2022-08-03 00:00 | LISINOPRIL | [facility] | + + + + | 2022-08-04 00:00 | LISINOPRIL | [facility] | + + + + | 2022-05-08 00:00 | lisinopril 20 MG Oral | [facility] | | | Tablet | | + + + + | 2022-05-17 00:00 | lisinopril 20 MG Oral | [facility] | | | Tablet | | + + + + | 2022-06-08 00:00 | lisinopril 20 MG Oral | [facility] | | | Tablet | | + + + + | 2022-08-03 00:00 | lisinopril 20 MG Oral | [facility] | | | Tablet | | + + + + | 2022-08-04 00:00 | lisinopril 20 MG Oral | [facility] | | | Tablet | | + + + + | 2022-05-09 00:00 | PYRIDOXINE HCL | [facility] | + + + + | 2022-05-19 00:00 | PYRIDOXINE HCL | [facility] | + + + + | 2022-06-09 00:00 | PYRIDOXINE HCL | [facility] | + + + + | 2022-08-03 00:00 | PYRIDOXINE HCL | [facility] | + + + + | 2022-08-04 00:00 | PYRIDOXINE HCL | [facility] | + + + + | 2022-05-08 00:00 | vitamin B6 50 MG Oral | [facility] | | | Tablet | | + + + + | 2022-05-17 00:00 | vitamin B6 50 MG Oral | [facility] | | | Tablet | | + + + + | 2022-06-08 00:00 | vitamin B6 50 MG Oral | [facility] | | | Tablet | | + + + + | 2022-08-03 00:00 | vitamin B6 50 MG Oral | [facility] | | | Tablet | | + + + + | 2022-08-04 00:00 | vitamin B6 50 MG Oral | [facility] | | | Tablet | | + + + + | 2022-05-09 00:00 | Cholecalciferol (Vitamin | [facility] | | | D3) | | + + + + | 2022-05-19 00:00 | Cholecalciferol (Vitamin | [facility] | | | D3) | | + + + + | 2022-06-09 00:00 | Cholecalciferol (Vitamin | [facility] | | | D3) | | + + + + | 2022-08-03 00:00 | Cholecalciferol (Vitamin | [facility] | | | D3) | | + + + + | 2022-08-04 00:00 | Cholecalciferol (Vitamin | [facility] | | | D3) | | + + + + | 2022-05-08 00:00 | cholecalciferol 0.05 MG | [facility] | | | Oral Tablet | | + + + + | 2022-05-17 00:00 | cholecalciferol 0.05 MG | [facility] | | | Oral Tablet | | + + + + | 2022-06-08 00:00 | cholecalciferol 0.05 MG | [facility] | | | Oral Tablet | | + + + + | 2022-08-03 00:00 | cholecalciferol 0.05 MG | [facility] | | | Oral Tablet | | + + + + | 2022-08-04 00:00 | cholecalciferol 0.05 MG | [facility] | | | Oral Tablet | | + + + + | 2022-05-08 00:00 | 24 HR diltiazem | [facility] | | | hydrochloride 240 MG | | | | Extended Release Oral C | | + + + + | 2022-05-17 00:00 | 24 HR diltiazem | [facility] | | | hydrochloride 240 MG | | | | Extended Release Oral C | | + + + + | 2022-05-09 00:00 | DILTIAZEM HCL | [facility] | + + + + | 2022-05-19 00:00 | DILTIAZEM HCL | [facility] | + + + + | 2022-05-17 00:00 | 24 HR diltiazem | [facility] | | | hydrochloride 180 MG | | | | Extended Release Oral C | | + + + + | 2022-06-08 00:00 | 24 HR diltiazem | [facility] | | | hydrochloride 180 MG | | | | Extended Release Oral C | | + + + + | 2022-08-03 00:00 | 24 HR diltiazem | [facility] | | | hydrochloride 180 MG | | | | Extended Release Oral C | | + + + + | 2022-08-04 00:00 | 24 HR diltiazem | [facility] | | | hydrochloride 180 MG | | | | Extended Release Oral C | | + + + + | 2022-05-17 00:00 | DILTIAZEM HCL | [facility] | + + + + | 2022-06-09 00:00 | DILTIAZEM HCL | [facility] | + + + + | 2022-08-03 00:00 | DILTIAZEM HCL | [facility] | + + + + | 2022-08-04 00:00 | DILTIAZEM HCL | [facility] | + + + + | 2022-05-17 00:00 | 24 HR diltiazem | [facility] | | | hydrochloride 180 MG | | | | Extended Release Oral C | | + + + + | 2022-05-17 00:00 | DILTIAZEM HCL | [facility] | + + + + | 2022-05-09 00:00 | LEVOTHYROXINE SODIUM | [facility] | + + + + | 2022-05-19 00:00 | LEVOTHYROXINE SODIUM | [facility] | + + + + | 2022-06-09 00:00 | LEVOTHYROXINE SODIUM | [facility] | + + + + | 2022-08-03 00:00 | LEVOTHYROXINE SODIUM | [facility] | + + + + | 2022-08-04 00:00 | LEVOTHYROXINE SODIUM | [facility] | + + + + | 2022-05-08 00:00 | levothyroxine sodium 0.112 | [facility] | | | MG Oral Tablet | | + + + + | 2022-05-17 00:00 | levothyroxine sodium 0.112 | [facility] | | | MG Oral Tablet | | + + + + | 2022-06-08 00:00 | levothyroxine sodium 0.112 | [facility] | | | MG Oral Tablet | | + + + + | 2022-08-03 00:00 | levothyroxine sodium 0.112 | [facility] | | | MG Oral Tablet | | + + + + | 2022-08-04 00:00 | levothyroxine sodium 0.112 | [facility] | | | MG Oral Tablet | | + + + + | 2022-05-09 00:00 | MEMANTINE HCL | [facility] | + + + + | 2022-05-19 00:00 | MEMANTINE HCL | [facility] | + + + + | 2022-06-09 00:00 | MEMANTINE HCL | [facility] | + + + + | 2022-08-03 00:00 | MEMANTINE HCL | [facility] | + + + + | 2022-08-04 00:00 | MEMANTINE HCL | [facility] | + + + + | 2022-05-08 00:00 | memantine hydrochloride 10 | [facility] | | | MG Oral Tablet | | + + + + | 2022-05-17 00:00 | memantine hydrochloride 10 | [facility] | | | MG Oral Tablet | | + + + + | 2022-06-08 00:00 | memantine hydrochloride 10 | [facility] | | | MG Oral Tablet | | + + + + | 2022-08-03 00:00 | memantine hydrochloride 10 | [facility] | | | MG Oral Tablet | | + + + + | 2022-08-04 00:00 | memantine hydrochloride 10 | [facility] | | | MG Oral Tablet | | + + + + | 2022-05-08 00:00 | MEMANTINE HCL | [facility] | + + + + | 2022-05-08 00:00 | MEMANTINE HCL | [facility] | + + + + | 2022-05-08 00:00 | memantine hydrochloride 5 | [facility] | | | MG Oral Tablet | | + + + + Problems + + + + | date | description | facility | + + + + | 2017-07-19 00:00 | Hypokalemia | [facility] | + + + + | 2017-07-19 00:00 | Hypokalemia | 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 | | | hypotension | | + + + + | 2017-07-19 00:00 | Hypotension | [facility] | + + + + | 2017-07-19 00:00 | Hypotension | [facility] | + + + + | 2017-07-19 00:00 | Syncope | [facility] | + + + + | 2017-07-19 00:00 | Syncope | [facility] | + + + + | 2022-05-05 00:00 | RYAN (acute kidney injury) | [facility] | + + + + | 2022-05-05 00:00 | Shingles | [facility] | + + + + | 2022-05-05 00:00 | Herpes zoster | [facility] | + + + + | 2022-05-05 00:00 | Herpes zoster | [facility] | + + + + | 2022-05-05 00:00 | Acute kidney injury | [facility] | + + + + | 2022-05-05 00:00 | Acute kidney injury | [facility] | + + + + | 2022-05-17 00:00 | Bradycardia, drug induced | [facility] | + + + + | 2022-05-17 00:00 | Near syncope | [facility] | + + + + | 2022-05-17 00:00 | Drug-induced bradycardia | [facility] | + + + + | 2022-05-17 00:00 | Drug-induced bradycardia | [facility] | + + + + | 2022-05-17 00:00 | Pre-syncope | [facility] | + + + + | 2022-05-17 00:00 | Pre-syncope | [facility] | + + + + | 2022-06-07 00:00 | Anemia | [facility] | + + + + | 2022-06-07 00:00 | Anemia | [facility] | + + + + | 2022-06-07 00:00 | Alzheimer's dementia | [facility] | + + + + | 2022-06-07 00:00 | Alzheimer's dementia | [facility] | + + + + | 2022-06-07 00:00 | Atrial fibrillation | [facility] | + + + + | 2022-06-07 00:00 | Atrial fibrillation | [facility] | + + + + | 2022-08-03 00:00 | Epistaxis | [facility] | + + + + Procedures + + + + | date | description | facility | + + + + | 2022-05-05 00:00 | DRAINAGE OF BLADDER WITH | [facility] | | | DRAINAGE DEVICE, VIA | | | | OPENING | | + + + + | 2022-05-05 00:00 | DRAINAGE OF BLADDER WITH | [facility] | | | DRAINAGE DEVICE, VIA | | | | OPENING | | + + + + | 2022-06-08 00:00 | Esophagogastroduodenoscopy | [facility] | | | (EGD) with closed biopsy | | + + + + | 2022-06-08 00:00 | Esophagogastroduodenoscopy | [facility] | | | (EGD) with closed biopsy | | + + + + | 2022-06-08 00:00 | Esophagogastroduodenoscopy | [facility] | | | (EGD) with closed biopsy [...] (missing) | | (unavailable | 15:57 | [place] | | | | | [...] NEGATIVE | (missing) | (missing) | | [id number] | 16:53 | [facility] | | | [...] NEGATIVE | (missing) | (missing) | | [id number] | 16:53 | [facility] | | | [...] NEGATIVE | (missing) | (missing) | | sqnso-2-zwvl | 16:53 | [facility] | | | [...] | | | | | | | daniad formula | | | | | | [...] | 2022-05-08 00:00 | [facility] | + + + + | 2022-05-17 00:00 | Former smoker | [facility] | + + + + | 2022-06-08 00:00 | Former smoker | [facility] | + + + + | 2022-08-03 00:00 | Former smoker | [facility] | + + + + | 2022-08-04 00:00 | Former smoker | [facility] | + + + + Vital Signs [...]
[~2023-04-28 14:25] MED LIST changes: -OMEGA-3 2100 S1 EACH PO; +OMEGA-3 21001050 MG PO
[2023-04-28] MEDS ORDERED: ELIQUIS2.5 MG PO (14:38)
--- NOTE | 2023-04-28 15:25 | NUR ---
THIS RN DOWN TO ER. BEDSIDE REPORT RECEIVED FROM PRIMARY RN. PT LAYING IN STRETCHER. AND SON IN ROOM. THIS RN TRANSFERED PT FROM ED TO MED/SURG ROOM 121. PT TRANSFERED TO HOSPITAL BED. LOU GARCIA IN TO ASSIST. VITALS AND BED WEIGHT COMPLETE. TELE PLACED. IV FLUIDS STARTED, SEE DEC. IV WNL. ASSESSMENT COMPLETE. LUNG SOUNDS CLEAR. BOWEL TONES ACTIVE. HEART TONES IRREGULAR. BRUISING NOTED TO PTs LEFT SIDE OF FACE. BRUISING NOTED TO PTs ABD. PT A&O TO SELF. ASKED PT WHAT MONTH IT IS AND PT STATES "JULY." INFORMED PT IT IS APRIL. ASKED PT WHAT YEAR IT IS AND PT STATES "JULY." INFORMED PT IT IS APRIL AND THE YEAR IS 2021. ASKED PT WHAT [place]OWN PT IS IN AND PT STATES "[place] ASKED PT WHY PT IS IN THE HOSPITAL AND PT STATES "I DO NOT KNOW." INFORMED PT THEY ARE IN HOSPITAL DUE TO A SUBDURAL HEMATOMA. AND SON LEAVE ROOM. QUESTIONS ANSWERED. CALL LIGHT IN REACH. PT EDUCATED PRIMARY GRADE TEACHER LIGHT USE. PT EDUCATED ON MATA CATHETER. BED ALARM ON.
[2023-04-28 17:40] VITALS: BP 165/85
--- NOTE | 2023-04-28 18:22 | NUR ---
SPOKE WITH DR SHEA REGARDING SBP OF 165 ALSO UNKNOWN IF PT TOOK HOME MEDICATIONS. VERBALIZED UNDERSTANDING, NO NEW ORDERS AT THIS TIME.
--- NOTE | 2023-04-28 19:10 | NUR ---
RECEIVED REPORT FROM DAY SHIFT RN. PATIENT IS RESTING IN BED WITH EYES CLSOED, RR 15. CALL LIGHT IN REACH.
[2023-04-28 21:01] VITALS: BP 150/102
--- NOTE | 2023-04-28 21:50 | NUR ---
PATIENT ASSESMENT COMPLETED. PATIENTS VITALS TAKEN AND RECORDED. MATA EMPTIED AND CATH CARE COMPLETED. INTAKE AND OUTPUT RECORDED. PATIENTS PM MEDS PER ORDER. PATIENT REPORTS 5/10 HEADAHCE, PRN TYLENOL GIVEN PER ORDER. PATIENT IS ABLE TO STATE SHE IS IN THE HOSPITAL. PATIENT DOES NOT KNOW DATE OR TIME. PATIENT UBALE TO STATE WHY SHE IS HERE. REORIENTED PATIENT. PATIENTS IV INFUSING PER ORDER. PATIENT IS ON TELE #1, AFIB NOTED. PATIENT DENIES ANY FURTHER NEEDS. CALL LIGHT IN REACH. BED ALARM ON FOR SAFETY.
--- NOTE | 2023-04-28 22:10 | NUR ---
PATIENT SL AND OFF THE FLOOR FOR CT. SABINO RN WITH PATIENT.
--- NOTE | 2023-04-28 22:30 | NUR ---
PATIENT BACK ON THE FLOOR. PATIENTS IV INFUSING PER ORDER. PATIENT DENIES ANY NEEDS. CALL LIGHT IN REACH. BED ALARM ON FOR SAFETY.
--- NOTE | 2023-04-28 22:57 | NUR ---
PATIENT IS RESTING IN BED WITH EYES CLSOED, RR 16. CALL LIGHT IN REACH. IV INFUSING PER ORDER.
--- NOTE | 2023-04-29 00:05 | NUR ---
PATIENT IS RESTING IN BED ON LEFT SIDE WITH EYES CLSOED, RR 16. TELE #1, HR 78. CALL LIGHT IN REACH. BED ALARM ON FOR SAFETY. IV INFUSING PER ORDER.
[2023-04-29 01:44] VITALS: BP 158/101
--- NOTE | 2023-04-29 02:17 | NUR ---
PATIENT IS RESTING IN BED WITH EYES CLOSED, RR 16. TELE #1, HR 76. IV INFUSING PER ORDER. CALL LIGHT IN REACH. BED ALARM ON FOR SAFETY.
--- NOTE | 2023-04-29 04:14 | NUR ---
PATIENT IS RESTING IN BED WITH EYES CLSOED, RR16. TELE #1, HR 76. CALL LIGHT IN REACH. BED ALARM ON FOR SAFETY.
[2023-04-29 05:27] VITALS: BP 163/91
--- NOTE | 2023-04-29 05:34 | NUR ---
LAB IN ROOM. PATIENTS VITALS TAKEN AND RECORDED. MATA EMPTIED. PATIENTS INTKAE AND OUTPUT RECORDED. PATIENT DENIES ANY PAIN. PATIENTS AM MEDS PER ORDER. PATIENT DENIES ANY FURTHER NEEDS. CALL LIGHT IN REACH. BED ALARM ON FOR SAFETY. CALL LIGHT IN REACH. IV INFUSING PER ORDER.
--- NOTE | 2023-04-29 06:06 | NUR ---
PATIENT IS RESTING IN BED WITH EYES CLOSED, RR 15. TELE #1, HR 72 AND IS NOTED TO BE IN AFIB. PATIENTS IV INFUSING PER ORDER. PATIENTS CALL LIGHT IN REACH. BED ALARM ON FOR SAFETY.
--- NOTE | 2023-04-29 07:26 | NUR ---
RECEIVED REPORT FROM [facility] NURSE. PT IS ALERT AND CONVERSIVE. AT BEDSIDE.
--- NOTE | 2023-04-29 09:34 | NUR ---
PT ASSESSMENT AND MEDICATION ADMINISTRATION COMPLETED. MATA CATHETER HAS BEEN REMOVED. PATIENT IS WORKING WITH PT ATT. AT BEDSIDE.
[2023-04-29 09:56] VITALS: BP 157/86
--- NOTE | 2023-04-29 13:07 | NUR ---
ASSISTED PT UP TO BEDSIDE COMMODE. REQUIRED FREQUENT REDIRECTION FOR FORGETFULLNESS. PT IS BACK TO BED. CALL LIGHT WITHIN REACH.
[2023-04-29 14:28] VITALS: BP 152/94
[2023-04-29 17:43] VITALS: BP 168/89
--- NOTE | 2023-04-29 19:29 | NUR ---
REPORT RECEIVED FROM DAY SHIFT RN. PT SITTING IN RECLINER ALERT WATCHING TV. DENIES NEEDS. WHITE BOARD UPDATED. CALL LIGHT IN REACH. PT IN VIEW OF NURSES STATION.
[2023-04-29 20:14] VITALS: BP 171/78
--- NOTE | 2023-04-29 20:56 | NUR ---
EVENING ASSESSMENT COMPLETE. SCHEDULED MEDS ADMIN PER EMAR. PT DENIES PAIN OR NAUSEA. 1PA WITH FWW TO BSC TO VOID. GAIT UNSTEADY AT TIMES. PT REPORTS SLIGHT DIZZINESS UPON STANDING. PT ABLE TO DO OWN SHIRA CARE. BACK TO BED, BA WELL. PT ORIENTED TO SELF. VS AND I&O OBTAINED. WARM BLANKET PROVIDED. PT DENIES FURTHER NEEDS. BED ALARM FOR SAFETY. CALL LIGHT IN REACH.
--- NOTE | 2023-04-29 22:54 | NUR ---
PT RESTING IN BED WITH EYES CLOSED. RESPIRATIONS EVEN. CALL LIGHT IN REACH. BED ALARM FOR SAFETY.
--- NOTE | 2023-04-30 00:08 | NUR ---
IV PUMP ALARMING. ISSUE RESOLVED. PT WAKES BRIEFLY UPON ENTERING ROOM. REPORTS SHE IS RESTING COMFORTABLY. DENIES NEEDS.
--- NOTE | 2023-04-30 00:38 | NUR ---
BED ALARM SOUNDING. IN TO ASSIST PT TO BSC WITH FWW. GAIT STEADY. PT ABLE TO DO OWN SHIRA CARE. BACK TO BED, BA WELL. PRN FOR C/O HEADACHE ADMIN PER EMAR. NO FURTHER NEEDS. BED ALARM IN PLACE.
--- NOTE | 2023-04-30 02:36 | NUR ---
PT RESTING IN BED WITH EYES CLOSED. RESPIRATIONS EVEN. CALL LIGHT IN REACH. BED ALARM ON.
--- NOTE | 2023-04-30 04:10 | NUR ---
BED ALARM SOUNDING. PT UP TO BSC WITH FWW AND SBA TO VOID. BACK TO BED, BA WELL. NO FURTHER NEEDS. BED ALARM IN PLACE. CALL LIGHT IN REACH.
[2023-04-30 06:36] VITALS: BP 152/95
--- NOTE | 2023-04-30 06:38 | NUR ---
PT RESTING WITH EYES CLOSED. AWAKENS EASILY TO VOICE. VS AND I&O OBTAINED. SCHEDULED MEDS ADMIN PER EMAR. PT DENIES PAIN OR NAUSEA. ASSESSMENT UNCHANGED. NO NEEDS AT THIS TIME. BED ALARM IN PLACE. CALL LIGHT IN REACH.
--- NOTE | 2023-04-30 06:49 | EKG ---
[facility] [address] [place], [place] [address] Signed Atrial fibrillation Low voltage QRS Nonspecific T wave abnormality Abnormal ECG Confirmed by SPRING SHEA MD ([id number]) on 04/30/2023 6:49:31 AM Electronically Signed By: SPRING SHEA 04/30/23 0649 PATIENT NAME: MIKHAIL PHAM Electrocardiogram DATE OF : 42 PHYSICIAN: SPRING SHEA REPORT #: [id number] REPORT IS CONFIDENTIAL AND NOT TO BE RELEASED WITHOUT AUTHORIZATION
--- NOTE | 2023-04-30 07:33 | NUR ---
REPORT RECEIVED FROM NIGHT RN - PT ASLEEP ON SIDE, RR EVEN AND UNLABORED. BED ALARM ON.
[2023-04-30 08:19] VITALS: BP 173/101
--- NOTE | 2023-04-30 08:33 | NUR ---
ASSESSMENT COMPLETE - PT ABLE TO TRANSFER WITH 1 PERSON ASSIST SMALL DISTANCE/PIVOT. DELAYED RESPONSE IN PROCESSING SPOKEN DIRECTIONS RELATED TO MOVEMENT. NEURO EXAM UNCHANGED FROM PREVIOUS. UP TO CHAIR FOR BREAKFAST - NOT INTERESTED IN FOOD, DRINKING STRAWBERRY ENSURE. BP ELEVATED THIS AM, AFIB RHYTHEM - SCHEDULED CARDIZEM ADMINISTERED. PRN TYLENOL ADMINSTERED FOR HEADACHE, LEFT SIDE TEMPORAL. MD IN ROOM TO ROUND, HUSBANDS CONCERNS ADRESSED REGARDING CAPABILITY OF CARE AT HOME.
--- NOTE | 2023-04-30 09:59 | NUR ---
RN ROUNDING IN ROOM - PT RESTING IN CHAIR WITH FAMILY AT BEDSIDE.
--- NOTE | 2023-04-30 12:15 | NUR ---
RECEIVED REPORT ON PT FROM NAVYA BLAKE. PT IS SLEEPING IN CHAIR. RESPIRATIONS EVEN AND REGULAR. VISITOR AT BEDSIDE.
[2023-04-30 13:22] VITALS: BP 143/70
--- NOTE | 2023-04-30 13:28 | NUR ---
ROUNDED ON PT. SON AT BEDSIDE. PT STARTED EATING WHEN THIS RN ASSISTED WITH FEEDING. SON AT BEDSIDE HELPING FEED THE PT.
--- NOTE | 2023-04-30 13:30 | NUR ---
ASSISTED PT OFF BEDSIDE COMMODE WITH OTHER RN. PT HAS DIFFICULTY FOLLOWING PROMPTS. AFTER ASSISTING PT BACK TO CHAIR, ATTEMPTED TO FEED PATIENT AND PT TOOK A FEW BITED WITH RN ASSISTANCE. SON AT BEDSIDE ASSISTED WITH FEEDING PATIENT.
--- NOTE | 2023-04-30 17:57 | NUR ---
ROUNDED ON PT. FAMILY MEMBERS AT BEDSIDE. PT APPEARS COMFORTABLE. CALL LIGHT WITHIN REACH, CHAIR ALARM ON.
[2023-04-30 18:15] VITALS: BP 167/88
--- NOTE | 2023-04-30 19:25 | NUR ---
REPORT RECEIVED FROM DAY SHIFT RN. PT SITTING IN RECLINER WITH EYES CLOSED. RESPIRATIONS EVEN. CHAIR ALARM IN PLACE. CALL LIGHT IN REACH.
[2023-04-30 20:51] VITALS: BP 165/85
--- NOTE | 2023-04-30 21:18 | NUR ---
PT IN RECLINER RESTING WITH EYES CLOSED. AWAKENS EASILY. UP TO BSC WITH 1PA AND FWW TO VOID. GAIT STEADY. PT REQUIRES FREQUENT QUEING. ABLE TO DO OWN SHIRA CARE. BACK TO BED, BA WELL. WARM BLANKET PROVIDED. VS AND I&O OBTAINED. EVENING ASSESSMENT COMPLETE. SCHEDULED MEDS ADMIN PER EMAR. PRN FOR HEADACHE PAIN ADMIN. PT ORIENTED TO SELF. BED ALARM FOR SAFETY. CALL LIGHT IN REACH.
--- NOTE | 2023-04-30 23:47 | NUR ---
PT RESTING IN BED WITH EYES CLOSED. RESPIRATIONS EVEN. CALL LIGHT IN REACH. BED ALARM FOR SAFETY.
--- NOTE | 2023-05-01 00:33 | NUR ---
ROUNDING ON PT AND NOTED PT AWAKE AND RESTLESS IN BED. UP TO BSC WITH FWW AND SBA TO VOID. PT REQUIRING FREQUENT QUEING. GAIT STEADY. STAFF ASSIST WITH SHIRA CARE. BACK TO BED, BA WELL. SIPS OF WATER PROVIDED. NO FURTHER NEEDS. BED ALARM ON.
--- NOTE | 2023-05-01 01:54 | NUR ---
IV PUMP ALARMING. NEW BAG IVF INFUSING PER ORDER. PT RESTING WITH EYES CLOSED. RESPIRATIONS EVEN. BED ALARM FOR SAFETY.
--- NOTE | 2023-05-01 04:10 | NUR ---
BED ALARM SOUNDING. PT UP TO BSC WITH FREIGHT DELIVERY DRIVER ASSIST. BACK TO BED. PT REPORTS SHE IS COMFORTABLE. ASSESSMENT COMPLETE. PT DENIES NEEDS. BED ALARM FOR SAFETY. CALL LIGHT IN REACH.
[2023-05-01 05:09] VITALS: BP 165/94
--- NOTE | 2023-05-01 05:19 | NUR ---
VS AND I&O OBTAINED. SCHEDULED MEDS ADMIN PER EMAR. PRN FOR C/O HEADACHE PAIN ADMIN PER ORDER. PT DENIES FURTHER NEEDS. BED ALARM FOR SAFETY.
--- NOTE | 2023-05-01 06:36 | NUR ---
BED ALARM SOUNDING. PT UP TO BSC WITH FWW AND 1PA TO VOID 400 ML CLEAR YELLOW URINE. STAFF ASSIST WITH SHIRA CARE. BACK TO BED, BA WELL. SIPS OF WATER PROVIDED. BED ALARM IN PLACE.
--- NOTE | 2023-05-01 07:10 | NUR ---
RECEIVED REPORT FROM LOU ZAMORA. PT SLEEPING IN BED WITH EYES CLOSED. BED ALARM ON. RESPIRATIONS EVEN AND REGULAR. CALL LIGHT WITHIN REACH.
--- NOTE | 2023-05-01 07:43 | NUR ---
PATIENT IS SLEEPING AT THIS TIME. UNABLE TO DISCUSS THE DISCHARGE PLAN. SPOKE TO SON THIS AM BY PHONE AND AND SON WILL BE AT THE HOSPITAL AT 0900 TO DISCUSS THE DISCHARGE PLAN.
[2023-05-01 08:00] VITALS: BP 155/89
--- NOTE | 2023-05-01 08:51 | NUR ---
PATIENT UP TO CHAIR AFTER USING BSC, 2PA FWW WITH HEAVY CUES. ASSISTED PATIENT WITH EATING BREAKFAST. 1/4 OF BANANA EATEN AND A FEW DRINKS OF ENSURE. FAMILY IN ROOM AND THIS OSTEOPATHIC PHYSICIAN WILL GO BACK IN TO TRY TO EAT SOME MORE BREAKFAST. CALL LIGHT IN REACH. NO FURTHER NEEDS AT THIS TIME.
--- NOTE | 2023-05-01 09:35 | NUR ---
SPOKE TO PATIENT AND THE FAMILY ABOUT THE DISCHARGE PLAN . FAMILY WOULD LIKE THE PATIENT TO GO TO [facility] FOR REHAB. STATES THAT THE PATIENT IS TO HEAVY CARE FOR HIM AT THIS TIME. PATIENT'S SONS ARE IN AGREEMENT. PATIENT HAS A SUPPORTIVE FAMILY. PATIENT WAS ABLE TO DO ADLS WITH HELP PRIOR TO HER SUBDURA HEMATOMA.PATIENT HAS A WALKER AND A CANE. STATES THERE HAS BEEN A DECLINE IN HIS 'S STRENGTH AND MENTAL AWARENESS OVER THE LAST YEAR. PATIENT LIVES WITH HER . PATIENT IS A POOR EATER AND ONLY LIKES BOAST. REFERRAL WAS SENT TO [facility] FOR REHAB. DEMOGRAPHICS ARE CORRECT IN THE MEDICAL RECORD.
--- NOTE | 2023-05-01 09:44 | NUR ---
PATIENT WITH POOR APPETITE. SHE IS DRINKING ENSURE. ADDED ENSURE PLUS HIGH PROTEIN TO ALL MEAL TRAYS.
[2023-05-01 11:31] VITALS: BP 156/86
--- NOTE | 2023-05-01 13:06 | NUR ---
PT IN CHAIR. FAMILY ON COUCH. PT RESPONDED TO ME WITH GESTURES BUT NO VERBAL RESPONSE. FAMILY DENIED NEEDS. PRAYED.
--- NOTE | 2023-05-01 13:28 | NUR ---
ROUNDED ON PT. PT UP WITH PHYSICAL THERAPY. BACK IN CHAIR AFTER GOING TO THE COMMODE. FAMILY AT BEDSIDE ASSISTING PATIENT WITH MEAL. CALL LIGHT WITHIN REACH AND NO FURTHER NEEDS VOICED.
[2023-05-01 15:23] VITALS: BP 172/88
--- NOTE | 2023-05-01 15:31 | NUR ---
PATIENT UP TO BSC AND THEN BACK TO CHAIR, 2PA FWW. DC VITALS DONE. IV TAKEN OUT UPON RN REQUEST. CATH INTACT AND LOOKED GOOD, RN NOTIFIED. CALL LIGHT IN REACH. FAMILY IN ROOM. NO FURTHER NEEDS AT THIS TIME.
== END 2023-05-01 16:02 | DRG 83 ==
LOC: ED 14:25 → MS 16:45
PROVIDERS: ADMIT Family Medicine; ATTEND Family Medicine
DX: S06.5XAA Traumatic subdural hemorrhage with loss of consciousness status unknown, initial encounter (principal); I48.19 Other persistent atrial fibrillation; N17.9 Acute kidney failure, unspecified; S00.83XA Contusion of other part of head, initial encounter; Z66 Do not resuscitate; E03.9 Hypothyroidism, unspecified; G30.9 Alzheimer's disease, unspecified; E83.52 Hypercalcemia; R07.81 Pleurodynia; Z79.01 Long term (current) use of anticoagulants; R55 Syncope and collapse; N18.9 Chronic kidney disease, unspecified; Z87.891 Personal history of nicotine dependence; Z88.0 Allergy status to penicillin; Z88.8 Allergy status to other drugs, medicaments and biological substances; Z88.2 Allergy status to sulfonamides; Z79.899 Other long term (current) drug therapy; Z91.018 Allergy to other foods; Z79.890 Hormone replacement therapy; W19.XXXA Unspecified fall, initial encounter
CPT/HCPCS: 36415; 70450; 71045; 80048; 80053; 81001; 83735; 84443; 84484; 85025; 85610; 85730; 87088; 93005; 93010; 97116; 97162; 97166; 97530; 97535; 99285 25; A9270; J2405; J7030; J7040

== ENCOUNTER 2023-05-10 22:30 | Inpatient (IN) | payer MEDICARE, OTHER ==
[~2023-05-10] VITALS: Ht 160 cm; Wt 64.8 kg
[2023-05-10 23:13] LABS: BASOPHILS 0.3 % (0-2); EOSINOPHILS 1.2 % (0-6); HEMATOCRIT 33.9 % (35.0-50.0); HEMOGLOBIN 11.4 g/dL (12.0-18.0); LYMPHOCYTES 20.8 % (24-44); MCH 32.8 (27-36); MCHC 33.5 g/dl (30-36); MONOCYTES 7.7 % (0-12); PLATELET COUNT 381 K/uL (140-440); RBC 3.46 M/ul (4.3-5.7); RDW 13.4 (10.5-15.0)
[2023-05-10] MEDS ORDERED: CIPRO500 MG PO (23:20)
[2023-05-10 23:28] LABS: ALBUMIN 3.2 g/dL (3.4-5.0); ALBUMIN/GLOBULIN RATIO 0.45 (1.1-2.4); ANION GAP 13.4 (7-21); BILIRUBIN, TOTAL 0.5 ng/dL (0.2-1.0); BUN/CREATININE RATIO 12.63 (6.0-28.6); CREATININE, SERUM 2.77 mg/dL (0.55-1.02); POTASSIUM 3.4 mmol/L (3.5-5.1); PROTEIN, TOTAL 10.3 g/dL (6.4-8.2)
[2023-05-10 23:29] LABS: CALCIUM 16.2 mg/dL (8.5-10.1)
[2023-05-10] MEDS ORDERED: METOPROLOL SUCC25 MG PO (23:37)
[2023-05-10] MEDS ORDERED: TRAMADOL HCL50 MG PO (23:40)
[2023-05-11 00:40] LABS: BILIRUBIN, URINE NEGATIVE (negative); BLOOD/HGB, URINE MODERATE (Negative); KETONE, URINE NEGATIVE (Negative); LEUK ESTERASE, URINE SMALL (negative); NITRITE, URINE NEGATIVE (negative)
[2023-05-11 00:45] LABS: EPITHELIAL CELLS, URINE SQUAMOUS 1+ /lpf (0-1+)
[2023-05-11 00:46] LABS: BACTERIA, URINE 3+ /hpf (negative); CASTS, URINE NONE SEEN \\lpf; CRYSTALS, URINE AMORPHOUS PHOSPH 2+ (0-1+); REFLEX CULTURE, URINE Yes (No); WHITE BLOOD CELLS, URINE >50 /HPF (0-5)
--- NOTE | 2023-05-11 01:05 | NUR ---
DR TEE AT RN STATION AND UPDATING DIALS SUPERVISOR OF UPCOMING ADMIT. PER DR TEE, VERBAL ORDER READ BACK TO COMPLETE VS Q4H.
--- NOTE | 2023-05-11 01:23 | NUR ---
DR TEE CALLED AND WAS UPDATED THAT ORDERED CALCITONIN IS UNAVAILABLE IN [facility], PER WELDER APPRENTICE [place] MEDICATION HAS TO BE PULLED BY PHARMACY SO EITHER MED WILL HAVE TO WAIT UNTIL AM DOSE WHEN PHARMACY ARRIVES TO FLOOR OR CASTABLES WORKER PHARMACIST WILL HAVE TO COME IN AND PREPARE MEDICATION. PER DR TEE, OKAY TO HOLD UNTIL SCHEDULED 0900 DOSE. TELEPHONE ORDER READ BACK RECEIVED FOR X1 DOSE IV LASIX 40MG NOW AND TO KEEP ORDERED BID LASIX IN PLACE. PRIMARY RN GILBERTO UPDATED AND AWARE, ON HER WAY TO ED TO GET pt.
--- NOTE | 2023-05-11 01:45 | NUR ---
pt ARRIVED TO [facility], PRIMARY RN BROUGHT pt UP TO FLOOR. VS COLLECTED AND CHARTED. pt POOR HISTORIAN DUE TO ADVANCED DEMENTIA AND IS LARGELY NONVERBAL PER PRIMARY RN. ADMISSION COMPLETED FROM H&P/PREVIOUS RECORDS. BED ALARM ON.
[2023-05-11 01:47] VITALS: BP 136/81
[2023-05-11 05:31] LABS: BASOPHILS 0.4 % (0-2); EOSINOPHILS 1.5 % (0-6); HEMATOCRIT 33.5 % (35.0-50.0); HEMOGLOBIN 11.6 g/dL (12.0-18.0); LYMPHOCYTES 23.1 % (24-44); MCH 33.8 (27-36); MCHC 34.8 g/dl (30-36); MCV 97.3 fl (81-99); MONOCYTES 7.4 % (0-12); NEUTROPHILS 67.6 % (39-80); PLATELET COUNT 385 K/uL (140-440); RBC 3.44 M/ul (4.3-5.7); RDW 13.8 (10.5-15.0)
[2023-05-11 05:46] LABS: ALBUMIN 3.2 g/dL (3.4-5.0); ALBUMIN/GLOBULIN RATIO 0.44 (1.1-2.4); BILIRUBIN, TOTAL 0.5 ng/dL (0.2-1.0); BUN/CREATININE RATIO 12.63 (6.0-28.6); CREATININE, SERUM 2.85 mg/dL (0.55-1.02); PROTEIN, TOTAL 10.4 g/dL (6.4-8.2)
[2023-05-11 05:50] LABS: CALCIUM 15.8 mg/dL (8.5-10.1)
--- NOTE | 2023-05-11 06:07 | NUR ---
SON IN ROOM TO SIT WITH pt, pt READJUSTED IN BED, PILLOW UNDER HEAD. BED ALARM REMAINS ON FOR SAFETY AND CALL LIGHT IN REACH. pt RESTING QUIETLY IN BED WITH EYES CLOSED AND ON RA, RR EVEN AND UNLABORED. NO DISTRESS NOTED.
--- NOTE | 2023-05-11 06:22 | NUR ---
PARATHYROID HORMONE PEPTIDE LAB REQUIRES A SPECIFIC TUBE PER MICHELLE IN LAB. TUBE TO ARRIVE HOPEFULLY BY MONDAY.
[2023-05-11 06:26] VITALS: BP 162/97
--- NOTE | 2023-05-11 06:55 | NUR ---
PT WAS ADMITTED FROM THE ER WITH HYPERCALCEMIA. PT IS NONVERBAL. PT ALSO HAS A UTI. IVF INFUSING PER ORDER. PT TURNED EVERY 2 HOURS. SAFETY PRECAUTIONS MAINTAINED. CALL LIGHT WITHIN REACH. WILL CONTINUE TO MONITOR.
--- NOTE | 2023-05-11 07:53 | NUR ---
RECEIVED REPORT FROM SHIRT PRESSER RN. PT IS SLEEPING IN BED WITH SON AT BEDSIDE. NO NEEDS VOICED AT THE MOMENT. CALL LIGHT WITHIN REACH.
--- NOTE | 2023-05-11 07:57 | NUR ---
THIS BATTERY INSTALLER HAS TAKEN OVER CARE FROM NIGHTSHIFT BATTERY INSTALLER. PT IS RESTING IN BED WITH EYES CLOSED. PT FAMILY MEMBER IN ROOM. THE FAMILY MEMBER ASKED ABOUT THE PT'S MEDICATION. NURSE NOTIFIED OF THIS REQUEST. FAMILY MEMBER NOTIFIED THAT THE NURSE WOULD COME DISCUSS HIS QUESTIONS. NO OTHER NEEDS AT THIS TIME.
[2023-05-11 09:14] VITALS: BP 157/92
--- NOTE | 2023-05-11 09:46 | NUR ---
1MG ATIVAN ADMINISTERED - PT LAYING IN BED CLENCHING ALL EXTREMITIES WITH CLENTCHED JAW/GRIMACE ON FACE. FAMILY AT BEDSIDE, DISCUSSED UPDATE IN MEDICAITONS THIS AM, THANKFUL. COFFEE PROVIDED TO .
--- NOTE | 2023-05-11 10:22 | NUR ---
ROUNDED ON PT. FAMILY AT BEDSIDE THIS MORNING. FAMILY ASKING QUESTIONS ABOUT COMFORT CARE/HOSPICE. WOULD LIKE TO TALK TO CASE MANAGEMENT ABOUT PLACEMENT FOR HOSPICE. FAMILY STATED PT SEEMS MORE RELAXED AFTER RECEIVING ATIVAN. CALL LIGHT WITHIN REACH AND NO FURTHER NEEDS VOICED.
--- NOTE | 2023-05-11 11:00 | NUR ---
In and spoke with pts spouse and son's. Pt is sleeping and does not awaken during our conversation. Discussed end of life with family and answered questions. Family would like [facility] or [facility]. Spouse would like to speak with the to check if there is any treatment that could help patient. I will start calling facilities for a bed. Dr. Gottlieb in to speak with family at 11:30.
--- NOTE | 2023-05-11 11:50 | NUR ---
Called [facility], and saled Georgia at [facility]. [facility] requested the chart and chart was faxed. [facility] states they are unable to take this patient for at least 10 days, I have did not get a response yet from [facility].
--- NOTE | 2023-05-11 12:15 | NUR ---
Received a call from Migel Spears Director of [facility]. He states he received a call from the coding clerks supervisor of [facility] asking they accept this pt. He is friend the pts son. He states they can accept this pt whenever Hospice can admit this pt. I also received a text from Georgia at [facility]. They have a bed open and could take this pt on Monday. I spoke with the family, dad and four sons. Asked where they would like mom to go. They all agree on [facility]. Called Georgia and let her know family would like to have mom at their facility. She states she can take on Monday. Family are considering Hospice and she states they would take her any way. I called Helen at Hospice and she requests a chart for their hospice to review. Dr Gottlieb updated of placement to [facility] on Monday.
--- NOTE | 2023-05-11 12:34 | EKG ---
[facility] [address] [place], [place] [address] Signed Atrial fibrillation Low voltage QRS Nonspecific ST and T wave abnormality Abnormal ECG When compared with ECG of 28-APR-2023 14:31, Confirmed by FRANNY TEE MD ([id number]) on 05/11/2023 12:34:40 PM Electronically Signed By: FRANNY TEE 05/11/23 1234 PATIENT NAME: MIKHAIL PHAM Electrocardiogram DATE OF : 42 PHYSICIAN: FRANNY TEE REPORT #: [id number] REPORT IS CONFIDENTIAL AND NOT TO BE RELEASED WITHOUT AUTHORIZATION
--- NOTE | 2023-05-11 12:49 | NUR ---
REFERRAL FOR PLACEMENT FAXED TO [facility]. REFERRAL FOR HOSPICE SERVICES FAXED TO [facility].
--- NOTE | 2023-05-11 12:50 | NUR ---
IN ROOM TO ANSWER CALL LIGHT - SUCTION CANISTER FULL OF URINE, DUMPED AND OUTPUT RECORDED. PT NOTED TO BE HOLLERING OUT WITH CLENCHED HAND WHILE IN ROOM. SCHEDULED ATIVAN ADMINISTERED PER EMAR, WILL REASSESS IF ADDITIONAL 2MG MORPHINE NEEDED TO TITRATE TO MAX DOSE. FAMILY UPDATED ON THIS, ENCOURAGED TO CALL IF SHE STILL EXHIBITS SIGNS OF PAIN.
--- NOTE | 2023-05-11 13:28 | NUR ---
SPOKE WITH FAMILY. PT HAS ADVANCED DIRECTIVE THAT SUPPORTS COMFORT CARE AT END OF LIFE. SPOKE OF NECCESSITY OF DIFFICULT CONVERSATIONS AND REMINDED THEM THAT DECISION BASED IN LOVE ARE NOT SHAMEFUL. GAVE CARD AND OFFERED TO RETURN REQUESTED.
--- NOTE | 2023-05-11 13:37 | NUR ---
ROUNDED ON PATIENT. PT SLEEPING WITH EYES CLOSED. FAMILY AT BEDSIDE. NO NEEDS VOICED BY FAMILY MEMBERS. CALL LIGHT WITHIN REACH.
[2023-05-11 17:45] VITALS: BP 134/106
--- NOTE | 2023-05-11 18:10 | NUR ---
ROUNDED ON PT. GAVE SCHEDULED MORPHINE. PT IS SLEEPING COMFPRTABLY. CALL LIGHT WITHIN REACH. NO FURTHER NEEDS VOICED BY FAMILY.
[2023-05-11 20:11] VITALS: BP 111/84
--- NOTE | 2023-05-11 21:55 | NUR ---
PT ASSESSED AND MEDICATIONS GIVEN. PT OBTUNDED. KEEPING PT COMFROTABLE AT THIS TIME. PUREWICK IN PLACE. BED ALARM ON. PT TURNED TO RIGHT SIDE. SAFETY PRECAUTIONS MAINTAINED. CALL LIGHT WITHIN REACH. WILL CONTINUE TO MONITOR.
[2023-05-12 05:07] VITALS: BP 130/86
[2023-05-12 05:37] LABS: BASOPHILS 0.6 % (0-2); EOSINOPHILS 1.1 % (0-6); HEMATOCRIT 31.7 % (35.0-50.0); HEMOGLOBIN 10.5 g/dL (12.0-18.0); LYMPHOCYTES 13.1 % (24-44); MCHC 33.3 g/dl (30-36); MCV 99.3 fl (81-99); MONOCYTES 5.8 % (0-12); NEUTROPHILS 79.4 % (39-80); PLATELET COUNT 327 K/uL (140-440); RBC 3.19 M/ul (4.3-5.7); RDW 13.4 (10.5-15.0)
[2023-05-12 05:51] LABS: ALBUMIN 2.8 g/dL (3.4-5.0); ALBUMIN/GLOBULIN RATIO 0.44 (1.1-2.4); ANION GAP 12.8 (7-21); BILIRUBIN, TOTAL 0.5 ng/dL (0.2-1.0); BUN/CREATININE RATIO 14.44 (6.0-28.6); CALCIUM 12.6 mg/dL (8.5-10.1); CREATININE, SERUM 2.77 mg/dL (0.55-1.02); POTASSIUM 3.8 mmol/L (3.5-5.1); PROTEIN, TOTAL 9.1 g/dL (6.4-8.2)
--- NOTE | 2023-05-12 06:10 | NUR ---
PT OBTUNDED DURING ENTIRE SHIFT. IVF INFUSING. PT TURNED EVERY [address] SAFETY PRECAUTIONS MAINTAINED. CALL LIGHT WITHIN REACH. WILL CONTINUE TO MONITOR.
--- NOTE | 2023-05-12 07:15 | NUR ---
RECEIVED REPORT FROM STATION INSPECTOR RN. PT RESTING IN BED WITH FAMILY MEMBERS AT BEDSIDE. INCREASED SECRETIONS NOTED. PERFROMED ASSESSMENT. NO FURTHER NEEDS VOICED BY FAMILY.
[2023-05-12 09:01] LABS: PARATHYROID HORMONE,INTACT 6 pg/mL (15-65)
--- NOTE | 2023-05-12 09:18 | NUR ---
SPOKE TO THE PATIENT'S FAMILY ABOUT THE DISCHARGE PLAN. PATIENT IS UNRESPONSIVE. THE DISCHARGE PLAN WILL BE THE PATIENT WILL GO TO [facility] ON HOSPICE MONDAY.
--- NOTE | 2023-05-12 09:30 | NUR ---
ENTERED PTS ROOM FOR MEDICATION ADMINISTRATION. NOTED PERIODS OF APENIC BREATHING. TALKED TO FAMILY MEMBERS ABOUT DECLINE IN PATIENTS STATUS. FAMILY MEMBERS AGREED TO KEEPING THE PATIENT COMFORTABLE AND NOT PURSUE ANY TREATMENTS FOR CONDITIONS. FAMILY MEMBERS WISH TO STOP FLUIDS AND OTHER MEDICATIONS INTENDED FOR IMPROVEMENT OF CONDITION. SON WANTED THE PTS AND OTHER SON TO BE PRESENT BEFORE THEY GIVE THE FINAL DECISION.
[2023-05-12 09:36] VITALS: BP 123/82
--- NOTE | 2023-05-12 10:45 | NUR ---
DISCUSSED PT STATUS WITH ADDITIONAL FAMILY MEMBERS. PTS , CHILDREN, AND GRANDCHILDREN IN THE ROOM. ALL WISH TO KEEP THE PATIENT COMFORTABLE. MD NOTIFIED AND WILL PUT IN ORDERS ACCORDINGLY.
--- NOTE | 2023-05-12 11:50 | NUR ---
SON AND [id number] AT BEDSIDE. PT DID NOT RESPOND TO INTERACTION. FAMILY CONSENTED TO PRAYER. PRAYED PRAYER OF COMMENDATION.
[2023-05-12 15:32] LABS: CALCIUM,IONIZED SERUM 1.78 mmol/L (1.09-1.30)
[2023-05-12 16:00] LABS: CALCIUM IONIZED PH 7.4 1.81 mmol/L (1.09-1.30)
--- NOTE | 2023-05-12 20:04 | NUR ---
REPORT RECEIVED FROM DAY SHIFT RN. PT LYING IN BED RESTING WITH EYES CLOSED. RESPIRATIONS EVEN. NO APPARENT DISTRESS. VISITORS AT BEDSIDE. DENIES NEEDS. CALL LIGHT IN REACH. WHITE BOARD UPDATED.
--- NOTE | 2023-05-12 21:13 | NUR ---
FAMILY TO DESK REQUESTING PRN FOR PAIN. PT WITH OCCASIONAL GROAN/GRIMACE. PRN FOR PAIN ADMIN PER EMAR. PT REPOSITIONED IN BED WITH PILLOWS. ASSISTED WITH ORAL CARE. PT WITH PERIODS OF APNEA. PUREWICK PATENT WITH DARK YELLOW URINE. ATTENDS DRY. PT LEFT IN RELAXED POSITION. FAMILY DENIES FURTHER NEEDS.
--- NOTE | 2023-05-12 22:52 | NUR ---
SCHEDULED MEDS ADMIN PER EMAR. RR 12. IRREGULAR WITH PERIODS OF APNEA NOTED. 2PA TO REPOSITION IN BED. PT EYES OPEN BRIEFLY WITH CARES. ORAL CARE DONE. SONS AT BEDSIDE. ICE WATER PROVIDED. NO FURTHER NEEDS.
--- NOTE | 2023-05-13 01:58 | NUR ---
PT RESTING IN BED WITH EYES CLOSED. RESPIRATIONS NON LABORED. RR 16. SHALLOW BREATHING AND APNEA NOTED. SCHEDULED MEDS ADMIN PER EMAR. PRN FOR SECRETIONS ADMIN. ORAL CARE DONE. FACE WASHED. PT REPOSITIONED WITH PILLOWS. SON AT BEDSIDE. ICE WATER PROVIDED. NO FURTHER NEEDS.
--- NOTE | 2023-05-13 03:55 | NUR ---
PT REPOSITIONED IN BED. OCCASIONAL MOAN AND GRIMACE NOTED BEFORE CARES. PRN FOR PAIN ADMIN PER EMAR. ORAL CARE COMPLETE. FAMILY IN ROOM. FRESH ICE PROVIDED FOR WATER. NO FURTHER NEEDS.
--- NOTE | 2023-05-13 06:15 | NUR ---
SCHEDULED MEDS ADMIN PER EMAR. PT RESTING WITH EYES CLOSED. RESPIRATIONS EVEN AT THIS TIME. RR 16. OCCASIONAL GRIMACE/MOAN NOTED. CLEAN PUREWICK PLACED AFTER SHIRA CARE. ATTENDS DRY. REPOSITIONED WITH PILLOWS. ORAL CARE COMPLETE. PT LEFT RESTING IN RELAXED POSITION.
--- NOTE | 2023-05-13 07:21 | NUR ---
REPORT FROM Selvin ALCANTARA RN, PATIENT RESTING WITH EYES CLOSED. RESPIRATIONS EVEN AND UNLABORED. SON IN ROOM AT BEDSIDE, DENIES NEEDS AT THIS TIME. PATIENT ALLOWED TO REST.
--- NOTE | 2023-05-13 19:21 | NUR ---
REPORT RECEIVED FROM DAY SHIFT RN. PT LYING IN BED WITH EYES CLOSED. RESPIRATIONS UNEVEN AND SHALLOW. PT RESTING IN RELAXED POSITION. FAMILY AT BEDSIDE. DENIES NEEDS. WHITE BOARD UPDATED. CALL LIGHT IN REACH.
--- NOTE | 2023-05-13 22:03 | NUR ---
SCHEDULED MEDS ADMIN PER EMAR. PT WITH OCCASIONAL MOAN AND GRIMACE. INCREASED DISCOMFORT NOTED WITH VOID. ATTENDS DRY. PUREWICK PATENT. PT REPOSITIONED WITH PILLOWS. ORAL CARE DONE. RESPIRATIONS 10 WITH PERIODS OF APNEA. FAMILY IN ROOM, DENIES FURTHER NEEDS. CALL LIGHT IN REACH.
--- NOTE | 2023-05-14 00:24 | NUR ---
ROUNDING ON PT. SONS AT BEDSIDE REPORT PT MOANING AND APPEARS UNCOMFORTABLE. PRN FOR PAIN ADMIN PER EMAR. REPOSITIONED IN BED WITH PILLOWS. RESPIRATIONS 20. IRREGULAR. ICE WATER PROVIDED FOR FAMILY. NO FURTHER NEEDS.
--- NOTE | 2023-05-14 02:12 | NUR ---
SCHEDULED MEDS ADMIN PER EMAR. GOWN CHANGED. ATTENDS DRY. PUREWICK IN PLACE WITH DARK ORANGE URINE. INCREASED DISCOMFORT NOTED WITH VOIDING. FACE WASHED AND ORAL CARE DONE. SONS AT BEDSIDE. NO FURTHER NEEDS.
--- NOTE | 2023-05-14 05:48 | NUR ---
SCHEDULED MEDS ADMIN PER EMAR. PT WITH OCCASIONAL MOAN AND GRIMACE. PUREWICK CHANGED AFTER SHIRA CARE. PT HAD APPROX 250 ML DARK ORANGE OUTPUT THIS SHIFT. ATTENDS DRY. 2PA TO REPOSITION WITH PILLOWS. RESPIRATIONS NON LABORED. SONS IN ROOM. NO FURTHER NEEDS.
--- NOTE | 2023-05-14 07:05 | NUR ---
Report from Selvin Simpson RN. Patient in bed, eyes closed. Respirations remain even and unlabored. Family at bedside, deny needs at this time. Allowed to rest at this time.
--- NOTE | 2023-05-14 12:35 | NUR ---
SEE EMAR. PATIENT REPOSITIONED IN BED. FAMILY REMAINS AT BEDSIDE. NO SIGNS OF PAIN OR DISCOMFORT.
--- NOTE | 2023-05-14 19:47 | NUR ---
REPORT RECEIVED FROM DAY SHIFT RN. PT LYING IN BED WITH EYES CLOSED. FAMILY REPORTS SIGN OF DISCOMFORT. PT UNABLE TO CLEAR SECRETIONS FROM THROAT. PRN MORPHINE ADMIN PER EMAR. PT REPOSITIONED TO LEFT SIDE WITH PILLOWS. HOB ELEVATED. ORAL CARE DONE. FAMILY IN ROOM. NO FURTHER NEEDS AT THIS TIME.
--- NOTE | 2023-05-14 20:18 | NUR ---
MD NOTIFIED OF LABORED RESPIRATIONS, DIFFICULTY CLEARING SECRETIONS, AND FAMILY CONCERNS. MD TO FLOOR TO SEE PT. NEW ORDERS RECEIVED.
--- NOTE | 2023-05-14 20:31 | NUR ---
PT LYING ON RIGHT SIDE. RR 26. LABORED. AUDIBLE SECRETIONS NOTED. PRN MORPHINE AND SCHEDULED ATIVAN ADMIN PER EMAR. PRN FOR SECRETIONS ADMIN. PT AND FOUR SONS IN ROOM. COFFEE AND ICE WATER PROVIDED. FAMILY DENIES FURTHER NEEDS.
--- NOTE | 2023-05-14 22:28 | NUR ---
IN FOR SCHEDULED VICE PRESIDENT OF CONSULTING SERVICES. PT RESPIRATIONS LESS LABORED. AUDIBLE SECRETIONS STILL NOTEABLE. RR 20. PT INCONTINENT OF URINE AROUND PUREWICK. LINENS AND BRIEF CHANGED. SKIN CLEANSED. NEW PUREWICK PLACED AFTER SHIRA CARE DONE. URINE DARK ORANGE WITH FOUL SMELL. PT REPOSITIONED TO LEFT SIDE WITH PILLOWS. HOB ELEVATED. ORAL CARE COMPLETE. SONS IN ROOM. ICE WATER REFRESHED. NO FURTHER NEEDS.
--- NOTE | 2023-05-15 01:30 | NUR ---
SCHEDULED MEDS ADMIN PER EMAR. PT RESTING WITH EYES CLOSED. RR 28 AND SLIGHTLY LABORED. GURGLING NOTED. PT REPOSITIONED TO RIGHT SIDE WITH PILLOWS. HOB ELEVATED. ORAL CARE DONE. PT SONS AT BEDSIDE. RESPIRATIONS SLOWED AFTER HEAD CONCIERGE. DISCUSSED PRN MORPHINE NEEDED FOR INCREASED RESPIRATIONS. FAMILY EXPRESSES UNDERSTANDING. NO FURTHER NEEDS.
--- NOTE | 2023-05-15 04:05 | NUR ---
PT RESTING IN BED WITH EYES CLOSED. RR 22 EVEN AND NON LABORED. SON REPORTS PT APPEARS TO BE RESTING COMFORTABLY. NO NEEDS AT THIS TIME.
--- NOTE | 2023-05-15 06:07 | NUR ---
IN FOR ICU TECH. PT RESTING WITH EYES CLOSED. RR 8 WITH PERIODS OF APNEA. GURGLING CONTINUES. PT REPOSITIONED IN BED WITH PILLOWS. ORAL CARE DONE. ATTENDS DRY. PUREWICK IN PLACE. SONS AT BEDSIDE, DENIES FURTHER NEEDS.
--- NOTE | 2023-05-15 07:44 | NUR ---
REPORT RECEIVED FROM LOU ZAMORA. PT IN BED WITH EYES CLOSED. APPEARS COMFORTABLE. SON AT BEDSIDE.
[2023-05-15] MEDS ORDERED: ATROPINE SULFATE5 M1 SL (07:49)
[2023-05-15] MEDS ORDERED: ARTIFICIAL TEAR15 M3 OU (07:51)
[2023-05-15] MEDS ORDERED: TRANSDERM-SCOP1 EACH TD (07:51)
[2023-05-15] MEDS ORDERED: MORPHINE S20 MG/5 ML SL (07:57)
--- NOTE | 2023-05-15 07:58 | NUR ---
SPOKE TO FAMILY AND PATIENT WILL BE GOING TO [facility] TO BE ON HOSPICE TODAY AT 10:30 TODAY. [facility] WILL TRANSPORT PATIENT.
--- NOTE | 2023-05-15 08:53 | NUR ---
MED REC COMPLETE
--- NOTE | 2023-05-15 09:18 | NUR ---
ROTATED PT. ADMINISTERED SCHEDULED MEDS. PERFORMED ORAL CARE WITH SUCTION AND MOISTENER. PT TOLERATED WELL AND BITE DOWN ON WAND. SON AND IN ROOM.
--- NOTE | 2023-05-15 10:11 | NUR ---
ADMININSTERED SCHEDULED MORPHINE. MANY FAMILY MEMBERS IN ROOM. PT APPEARS COMFORTABLE. RR 10-12, JUAN.
--- NOTE | 2023-05-15 13:02 | NUR ---
PT IN BED. NONRESPONSIVE. FAMILY AT BEDSIDE ANTICIPATING MOVE TO [facility]. THANKED FOR VISIT. SAW PT AGAIN [facility]SP[facility]ING. SAID SILENT PRAYER FOR SAFE TRANSPORT AND ABIDING [place].
== END 2023-05-15 10:35 | DRG 687 ==
LOC: ED 22:30 → MS 05-11 01:05
PROVIDERS: Internal Medicine; ADMIT Internal Medicine; ATTEND Internal Medicine
DX: C64.9 Malignant neoplasm of unspecified kidney, except renal pelvis (principal); G93.49 Other encephalopathy; E83.52 Hypercalcemia; I48.91 Unspecified atrial fibrillation; Z51.5 Encounter for palliative care; Z66 Do not resuscitate; E87.6 Hypokalemia; E03.9 Hypothyroidism, unspecified; G30.9 Alzheimer's disease, unspecified; F02.80 Dementia in other diseases classified elsewhere, unspecified severity, without behavioral disturbance, psychotic disturbance, mood disturbance, and anxiety; F41.9 Anxiety disorder, unspecified; N18.30 Chronic kidney disease, stage 3 unspecified; I12.9 Hypertensive chronic kidney disease with stage 1 through stage 4 chronic kidney disease, or unspecified chronic kidney disease; R00.1 Bradycardia, unspecified; Z88.0 Allergy status to penicillin; Z88.8 Allergy status to other drugs, medicaments and biological substances; Z88.2 Allergy status to sulfonamides; Z91.018 Allergy to other foods; Z87.891 Personal history of nicotine dependence; Z79.899 Other long term (current) drug therapy; Z79.2 Long term (current) use of antibiotics; Z79.811 Long term (current) use of aromatase inhibitors; Z79.891 Long term (current) use of opiate analgesic
CPT/HCPCS: 36415; 51701; 71045; 74176; 80053; 81001; 83970; 85025; 87088; 93005; 93010; 99285-25; J0630; J1940; J2060; J2270; J2405; J3480; J3489; J7030